=== PATIENT | female | born 1965 | race African-American/Black ===

== ENCOUNTER 2016-09-26 05:45 | Emergency (ER) | payer MEDICAID ==
[2016-09-26 08:56] LABS: ABSOLUTE EOSINOPHILS # (AUTO) 0.2 10^3/uL (0.0-0.6); ABSOLUTE LYMPHOCYTES (AUTO) 1.4 10^3/uL (0.5-4.7); ABSOLUTE MONOCYTES (AUTO) 0.5 10^3/uL (0.1-1.4); ABSOLUTE NEUT (AUTO) 3.7 10^3/uL (1.7-8.2); BASOPHILS % (AUTO) 0.8 % (0-2); EOSINOPHILS % (AUTO) 4.1 % (0-6); HEMOGLOBIN 11.5 g/dL (12.0-15.5); HGB HCT DIFFERENCE 0.5; LYMPHOCYTES % (AUTO) 24.2 % (13-45); MEAN CORPUSCULAR HEMOGLOBIN 27.4 pg (27.0-33.4); MEAN CORPUSCULAR HGB CONC 33.7 g/dL (32.0-36.0); MEAN CORPUSCULAR VOLUME 81 fl (80-97); MONOCYTES % (AUTO) 8.2 % (3-13); RED BLOOD COUNT 4.17 10^6/uL (3.72-5.28); RED CELL DISTRIBUTION WIDTH 14.4 % (11.5-14.0); SEGMENTED NEUTROPHILS % (AUTO) 62.7 % (42-78); WHITE BLOOD COUNT 5.9 10^3/uL (4.0-10.5)
--- NOTE | 2016-09-26 09:05 | ER Document Report ---
ED General - General Chief Complaint: Shortness Of Breath Stated Complaint: breathing difficulty TRAVEL OUTSIDE OF THE U.S. IN LAST 30 DAYS: No - HPI Patient complains to provider of: shortness of breath Notes: Patient's coming in today for evaluation shortness of breath. Patient states woke up this morning at 4:00 shortness of breath and body pain was able to give herself a nebulizer treatment however did call EMS and was transported to the hospital for further evaluation. Patient denies any recent travel denies fevers chills nausea vomiting states she does have a cough but there is no production of the cough. Patient does mention chest pain however states this when intermitted hard to differentiate between exact chest pain and her complaint of total body pain. Patient states that she always hurts. Patient is otherwise sitting comfortably in no obvious distress. Patient is requesting a prescription for amoxicillin. - Related Data Allergies/Adverse Reactions: codeine [Codeine] Allergy (Unknown, Verified 09/26/16 07:34) Past Medical History - Social History Smoking Status: Never Smoker Chew tobacco use (# tins/day): No Frequency of alcohol use: None Drug Abuse: None Family History: Arthritis, CAD, CVA, DM, Hyperlipidemia, Hypertension Patient has suicidal ideation: No Patient has homicidal ideation: No - Past Medical History Cardiac Medical History: Reports: Hx Hypertension Comment Only: Hx Heart Attack - ANGINA Pulmonary Medical History: Reports: Hx Asthma Renal/ Medical History: Denies: Hx Peritoneal Dialysis GI Medical History: Reports: Hx Gastroesophageal Reflux Disease Musculoskeltal Medical History: Reports Hx Arthritis Psychiatric Medical History: Reports: Hx Anxiety, Hx Depression Surgical Hx: Negative - Immunizations Immunizations up to date: No Hx Diphtheria, Pertussis, Tetanus Vaccination: Yes Hx Pneumococcal Vaccination: 06/11/00 Review of Systems - Review of Systems Constitutional: No symptoms reported EENT: No symptoms reported Cardiovascular: No symptoms reported Respiratory: Short of breath Gastrointestinal: No symptoms reported Genitourinary: No symptoms reported Female Genitourinary: No symptoms reported Musculoskeletal: No symptoms reported Skin: No symptoms reported Hematologic/Lymphatic: No symptoms reported Neurological/Psychological: No symptoms reported Physical Exam - Vital signs Vitals: Temp Pulse Resp BP Pulse Ox 98.1 F 94 18 140/73 H 97 09/26/16 05:58 09/26/16 05:58 09/26/16 05:58 09/26/16 05:58 09/26/16 05:58 Interpretation: Normal - General General appearance: Appears well, Alert - HEENT Head: Normocephalic, Atraumatic Eyes: Normal Pupils: PERRL - Respiratory Respiratory status: No respiratory distress Chest status: Nontender Breath sounds: Normal Chest palpation: Normal - Cardiovascular Rhythm: Regular Heart sounds: Normal auscultation Murmur: No - Abdominal Inspection: Normal Distension: No distension Bowel sounds: Normal Tenderness: Nontender. No: Tender, McBurney's point, Basurto's sign, Guarding, Rebound Organomegaly: No organomegaly - Back Back: Normal, Nontender - Extremities General upper extremity: Normal inspection, Nontender, Normal color, Normal ROM , Normal temperature General lower extremity: Normal inspection, Nontender, Normal color, Normal ROM , Normal temperature, Normal weight bearing. No: Elbert's sign - Neurological Neuro grossly intact: Yes Cognition: Normal Orientation: AAOx4 Yolie Coma Scale Eye Opening: Spontaneous Yolie Coma Scale Verbal: Oriented Yolie Coma Scale Motor: Obeys Commands Mcwilliams Coma Scale Total: 15 Speech: Normal Motor strength normal: LUE, RUE, LLE, RLE Sensory: Normal - Psychological Associated symptoms: Normal affect, Normal mood - Skin Skin Temperature: Warm Skin Moisture: Dry Skin Color: Normal Course - Re-evaluation Re-evalutation: 09/26/16 10:56 Patient does have slight elevation in her liver function test however reexamination the patient's abdomen still reveals no critical etiology or abdominal pathology. Patient was encouraged follow-up with her primary care physician for further evaluation of elevation in her liver function tests. Patient remained stable. Patient upon reevaluation still has clear lung sounds. Patient will be given a prescription for albuterol and inhaler for her the use as needed for shortness of breath. Patient will be discharged home - Vital Signs Vital signs: Temp Pulse Resp BP Pulse Ox 98.1 F 94 18 140/73 H 97 09/26/16 05:58 09/26/16 05:58 09/26/16 07:10 09/26/16 05:58 09/26/16 05:58 - Laboratory Result Diagrams: 09/26/16 08:00 09/26/16 08:00 Laboratory results interpreted by me: 09/26/16 09/26/16 08:00 08:00 Hgb 11.5 L Hct 34.0 L RDW 14.4 H AST 42 H ALT 66 H Alkaline Phosphatase 155 H Creatine Kinase 167 H Total Protein 8.6 H Discharge - Discharge Clinical Impression: Elevated liver function tests Dyspnea Qualifiers: Dyspnea type: unspecified Qualified Code(s): R06.00 - Dyspnea, unspecified Instructions: Dyspnea, Nonspecific ([facility]), Liver Function Abnormality ([facility]) Additional Instructions: Your lab work x-rays today shows no signs of any significant pathology. You have a slight elevation in your liver enzymes. At this time I see any reason for any antibiotics I would highly recommend she follow-up with your primary care physician for further evaluation and monitoring of your liver function tests. Will give you a prescription for albuterol that she may use with your machine at home also a prescription for an inhaler that she may use as needed for any further shortness of breath. Prescriptions: Albuterol Sulfate [Ventolin Hfa] 1 - 2 puff IH Q4 PRN #1 [email or web address] PRN Reason: Albuterol Sulfate [Albuterol Sulfate 2.5mg/3 mL] 2.5 mg IH Q4 #20 vial Referrals: DHAVAL KAISER MD [Primary Care Provider] - Follow up in 3-5 days
[2016-09-26 09:13] LABS: ALANINE AMINOTRANSFERASE 66 U/L (9-52); ALBUMIN 4.6 g/dL (3.5-5.0); ALKALINE PHOSPHATASE 155 U/L (38-126); ANION GAP 14 (5-19); ASPARTATE AMINO TRANSFERASE 42 U/L (14-36); BILIRUBIN,DIRECT 0.3 mg/dL (0.0-0.4); BILIRUBIN,TOTAL 0.6 mg/dL (0.2-1.3); BLOOD UREA NITROGEN 11 mg/dL (7-20); CALCIUM 10.2 mg/dL (8.4-10.2); CARBON DIOXIDE 30 mmol/L (22-30); CHLORIDE 98 mmol/L (98-107); CREATINE KINASE 167 U/L (30-135); CREATININE RESULT 0.81 mg/dL (0.52-1.25); GLUCOSE 98 mg/dL (75-110); POTASSIUM 3.8 mmol/L (3.6-5.0); SODIUM 141.8 mmol/L (137-145); TOTAL PROTEIN 8.6 g/dL (6.3-8.2)
[2016-09-26 09:24] LABS: CREATINE KINASE MB 0.34 ng/mL (<4.55)
[2016-09-26 09:25] LABS: TROPONIN I < 0.012 ng/mL
[2016-09-26 11:04] VITALS: BP 138/92
--- NOTE | 2016-09-26 13:25 | EKG REPORT ---
SEVERITY:- NORMAL ECG - SINUS RHYTHM : Confirmed by: Josseline Byrd MD 26-Sep-2016 13:24:25
== END 2016-09-26 10:30 | disposition home or self-care (01) ==
LOC: ER 05:45
DX: J45.909 Unspecified asthma, uncomplicated (principal); R79.89 Other specified abnormal findings of blood chemistry; R06.02 Shortness of breath; R05 Cough; R07.9 Chest pain, unspecified; I10 Essential (primary) hypertension; Z88.5 Allergy status to narcotic agent
CPT/HCPCS: 36415; 71020; 80053; 82550; 82553; 84484; 85025; 93005; 93010; 99285

== ENCOUNTER 2016-10-15 18:21 | Emergency (ER) | payer SELFPAY ==
[2016-10-15 18:47] VITALS: BP 125/85
--- NOTE | 2016-10-15 19:41 | ER Document Report ---
HPI - HPI Pain Level: 3 Context: 51 yo female c/o pain to right upper and lower teeth x 1 week as well as some nasal congestion. no fever, no gingival swelling. Associated Symptoms: None Exacerbated by: Denies Relieved by: Denies Similar symptoms previously: Yes Recently seen / treated by doctor: No - ROS Systems Reviewed and Negative: Yes All other systems reviewed and negative - REPRODUCTIVE Reproductive: DENIES: : - DERM Skin Color: Normal Past Medical History - General Information source: Patient - Social History Smoking Status: Never Smoker Frequency of alcohol use: None Drug Abuse: None Lives with: Family Family History: Arthritis, CAD, CVA, DM, Hyperlipidemia, Hypertension Patient has suicidal ideation: No Patient has homicidal ideation: No - Past Medical History Cardiac Medical History: Reports: Hx Hypertension Comment Only: Hx Heart Attack - ANGINA Pulmonary Medical History: Reports: Hx Asthma Renal/ Medical History: Denies: Hx Peritoneal Dialysis GI Medical History: Reports: Hx Gastroesophageal Reflux Disease Musculoskeltal Medical History: Reports Hx Arthritis Psychiatric Medical History: Reports: Hx Anxiety, Hx Depression - Immunizations Immunizations up to date: No Hx Diphtheria, Pertussis, Tetanus Vaccination: Yes Hx Pneumococcal Vaccination: 06/11/00 Vertical Provider Document - CONSTITUTIONAL Agree With Documented VS: Yes Exam Limitations: No Limitations General Appearance: WD/WN, No Apparent Distress - INFECTION CONTROL TRAVEL OUTSIDE OF THE [place] IN LAST 30 DAYS: No - HEENT HEENT: Atraumatic, PERRLA Mouth Diagram: 1 - pain 2 - pain - NECK Neck: Normal Inspection, Supple - RESPIRATORY Respiratory: Breath Sounds Normal, No Respiratory Distress O2 Sat by Pulse Oximetry: 98 - CARDIOVASCULAR Cardiovascular: Regular Rate, Regular Rhythm - MUSCULOSKELETAL/EXTREMETIES Musculoskeletal/Extremeties: CODI ROSALES - NEURO Level of Consciousness: Awake, Alert, Appropriate - DERM Integumentary: Warm, Dry Course - Vital Signs Vital signs: Temp Pulse Resp BP Pulse Ox 98.8 F 88 16 125/85 98 10/15/16 18:45 10/15/16 18:45 10/15/16 18:45 10/15/16 18:45 10/15/16 18:45 Discharge - Discharge Clinical Impression: Pain, dental, Nasal congestion Condition: Stable Disposition: HOME, SELF-CARE Instructions: Penicillin V K ([facility]), Toothache ([facility]) Additional Instructions: Take meds as prescribed recommend over the counter Claritin for nasal congestion Follow up with dental for further evaluation and treatment Prescriptions: Penicillin V Potassium [Penicillin Vk 500 mg Tablet] 500 mg PO BID #20 tablet
== END 2016-10-15 19:55 | disposition home or self-care (01) ==
LOC: ER 18:21
DX: K08.89 Other specified disorders of teeth and supporting structures (principal); R09.81 Nasal congestion; I10 Essential (primary) hypertension; J45.909 Unspecified asthma, uncomplicated
CPT/HCPCS: 99282

== ENCOUNTER 2016-11-07 20:17 | Emergency (ER) | payer SELFPAY ==
[2016-11-07 20:50] VITALS: BP 122/67
== END 2016-11-07 21:50 | disposition left against medical advice (07) ==
LOC: ER 20:17
DX: Z53.21 Procedure and treatment not carried out due to patient leaving prior to being seen by health care provider (principal)

== ENCOUNTER 2016-11-22 19:45 | Emergency (ER) | payer SELFPAY | END 2016-11-22 20:25 | disposition left against medical advice (07) | LOC: ER 19:45 | DX: Z53.9 Procedure and treatment not carried out, unspecified reason (principal); M79.1 Myalgia ==

== ENCOUNTER 2016-12-03 15:44 | Emergency (ER) | payer SELFPAY ==
[2016-12-03 16:17] VITALS: BP 126/74
[2016-12-03 16:32] LABS: APPEARANCE,URINE CLOUDY; BILIRUBIN,URINE NEGATIVE (NEGATIVE); GLUCOSE, URINE NEGATIVE (NEGATIVE); KETONES,URINE NEGATIVE (NEGATIVE); LEUKOCYTE ESTERASE,URINE MODERATE (NEGATIVE); NITRITE,URINE NEGATIVE (NEGATIVE); PROTEIN,URINE NEGATIVE (NEGATIVE); URINE SPECIFIC GRAVITY 1.025; UROBILINOGEN,URINE NEGATIVE mg/dL (<2.0)
[2016-12-03 16:36] LABS: WBC,URINE 0-1 /HPF
== END 2016-12-03 16:45 | disposition left against medical advice (07) ==
LOC: ER 15:44
DX: Z53.21 Procedure and treatment not carried out due to patient leaving prior to being seen by health care provider (principal)
CPT/HCPCS: 81001

== ENCOUNTER 2016-12-22 15:59 | Emergency (ER) | payer SELFPAY ==
[2016-12-22 16:16] VITALS: BP 126/71
[2016-12-22] MEDS ORDERED: IBUPROFEN 600 MG TABLET PO ONE (16:21)
[2016-12-22] MEDS ORDERED: PENICILLIN V POTASSIUM 500 MG TABLET PO ONE (16:21)
--- NOTE | 2016-12-22 16:26 | ER Document Report ---
ED Oral Problem - General Chief Complaint: Toothache Stated Complaint: TOOTH PAIN Time Seen by Provider: 12/22/16 16:18 Mode of Arrival: Ambulatory Information source: Patient Notes: 51-year-old female presents to ED for dental pain to the left wisdom tooth #16. The tooth has been hurting for couple of days. She denies making plans to visit the dentist yet she says they cost too much money. TRAVEL OUTSIDE OF THE [place] IN LAST 30 DAYS: No - HPI Patient complains to provider of: Toothache Onset: Other - Couple days Onset: Gradual Quality of pain: Achy, Throbbing Severity: Moderate Pain Level: 3 Associated symptoms: Toothache Worsened by: Cold Relieved by: Nothing Similar symptoms previously: Yes Recently seen / treated by doctor/dentist: No - Related Data Allergies/Adverse Reactions: codeine [Codeine] Allergy (Unknown, Verified 11/07/16 20:45) Past Medical History - General Information source: Patient - Social History Smoking Status: Never Smoker Cigarette use (# per day): No Chew tobacco use (# tins/day): No Smoking Education Provided: No Frequency of alcohol use: None Drug Abuse: None Lives with: Family Family History: Arthritis, CAD, CVA, DM, Hyperlipidemia, Hypertension Patient has suicidal ideation: No Patient has homicidal ideation: No - Past Medical History Cardiac Medical History: Reports: Hx Hypertension Comment Only: Hx Heart Attack - ANGINA Pulmonary Medical History: Reports: Hx Asthma EENT Medical History: Reports: None Neurological Medical History: Reports: None Endocrine Medical History: Reports: None Renal/ Medical History: Reports: None Malignancy Medical History: Reports: None GI Medical History: Reports: Hx Gastroesophageal Reflux Disease Musculoskeltal Medical History: Reports Hx Arthritis Psychiatric Medical History: Reports: Hx Anxiety, Hx Depression Traumatic Medical History: Reports: None Infectious Medical History: Reports: None Surgical Hx: Negative Past Surgical History: Reports: None - Immunizations Immunizations up to date: No Hx Diphtheria, Pertussis, Tetanus Vaccination: Yes Hx Pneumococcal Vaccination: 06/11/00 Review of Systems - Review of Systems Constitutional: No symptoms reported EENT: Mouth pain, Dental problem Cardiovascular: No symptoms reported Respiratory: No symptoms reported Gastrointestinal: No symptoms reported Genitourinary: No symptoms reported Female Genitourinary: No symptoms reported Musculoskeletal: No symptoms reported Skin: No symptoms reported Hematologic/Lymphatic: No symptoms reported Neurological/Psychological: No symptoms reported -: Yes All other systems reviewed and negative Physical Exam - Vital signs Vitals: Temp Pulse Resp BP Pulse Ox 98.4 F 72 18 126/71 H 99 12/22/16 16:14 12/22/16 16:14 12/22/16 16:14 12/22/16 16:14 12/22/16 16:14 Interpretation: Normal - General General appearance: Appears well, Alert - HEENT Head: Normocephalic, Atraumatic Eyes: Normal Pupils: PERRL Ears: Normal External canal: Normal Tympanic membrane: Normal Sinus: Normal Nasal: Normal Mouth/Lips: Caries Teeth diagram: 1 - Cavity and tooth #16 redness around the tooth. Multiple other dental cavities. - Respiratory Respiratory status: No respiratory distress Chest status: Nontender Breath sounds: Normal Chest palpation: Normal - Cardiovascular Rhythm: Regular Heart sounds: Normal auscultation Murmur: No - Abdominal Inspection: Normal Distension: No distension Bowel sounds: Normal Tenderness: Nontender Organomegaly: No organomegaly - Back Back: Normal, Nontender - Extremities General upper extremity: Normal inspection, Nontender, Normal color, Normal ROM , Normal temperature General lower extremity: Normal inspection, Nontender, Normal color, Normal ROM , Normal temperature, Normal weight bearing. No: Elbert's sign - Neurological Neuro grossly intact: Yes Cognition: Normal Orientation: AAOx4 Yolie Coma Scale Eye Opening: Spontaneous [place] Coma Scale Verbal: Oriented Yolie Coma Scale Motor: Obeys Commands [place] Coma Scale Total: 15 Speech: Normal Motor strength normal: LUE, RUE, LLE, RLE Sensory: Normal - Psychological Associated symptoms: Normal affect, Normal mood - Skin Skin Temperature: Warm Skin Moisture: Dry Skin Color: Normal Course - Re-evaluation Re-evalutation: 12/22/16 16:40 Patient insistent that she was going to take half of the pill now and half of the pill later informed patient know she needed to take the whole pale now. Patient did not put half the pill in her mouth and swallowed it with no difficulty then put the other pill half of the pill in her cheek and said she was ready to go. She was instructed she needed to take the other half of the pill now before she left. Patient became very angry and stated to you treat all your patients like that and watch them take the pills. Patient instructed that yes we supposed to make sure that the patient take the medications as prescribed. Patient again instructed with the rest of the prescription to please take the pill as it is prescribed 500 mg twice daily and not break the pill in half and save half later. Patient instructed that the pill will not work if she only takes half the dose. - Vital Signs Vital signs: Temp Pulse Resp BP Pulse Ox 98.4 F 72 18 126/71 H 99 12/22/16 16:14 12/22/16 16:14 12/22/16 16:14 12/22/16 16:14 12/22/16 16:14 Discharge - Discharge Clinical Impression: Pain due to dental caries Condition: Stable Disposition: HOME, SELF-CARE Instructions: Use of Gtal-Sdu-Vmnljti Ibuprofen ([facility]) Additional Instructions: TOOTHACHE: Your pain is due to dental decay. The tooth must be repaired in order for you to feel better. You will, therefore, be referred to a dentist. We do not have dentists on the staff at [facility]. Severe swelling or drainage around a tooth usually means a dental abscess. This also requires evaluation and treatment by the dentist, but antibiotics may be prescribed while awaiting dental treatment. You should be rechecked immediately if you develop major swelling of the face, increasing pain, a lump in the jaw or gums, headache, difficulty swallowing, or fever. PENICILLIN V K: You have been given a prescription for Penicillin VK. Your physician has determined that this is the best antibiotic for your condition. Pen VK can be taken with meals, however more of the antibiotic gets into the bloodstream if it's taken on an empty stomach. Penicillin usually has no side effects. However, allergy to penicillins is common. If you have had an allergic reaction to any drug of the penicillin family, you should never take any other penicillin. Notify your doctor at once if you develop hives, itching, swelling, faintness, or shortness of breath. FOLLOW-UP CARE: You have been referred for follow-up care to the dentists listed below. Call the dentists office for an appointment as you were instructed or within the next two days. If you experience worsening or a significant change in your symptoms, notify the physician immediately or return to the Emergency Department at any time for re-evaluation. [facility] [address] [place], [place] mornings, by appointment [facility] [address] [place] [address] [facility] [address] [facility] [address] [facility] [address] [facility] [address] [email or web address] [address] [place] [address] Sunday- 8:00am to 5:00 pm Will see patients from other [facility]. Charges based on income and family size and accepts Medicare, Medicaid, and Insurances Will pull molars [facility] [address] Hours of Operation 8:00 am - 4:30 pm weekdays The following dental offices accept Medicaid: [facility] [address]. S[address]chez Dr. Shukla Dr. [place] Dr. Beauchamp [place], and [facility] Dr. Zhang ([place]) Dr. Cosby ([place]) [facility] Drs. Bedoya and Dusty ([place]) Dr. Murphy ([place]) [facility] Dr. Calderon ([place]) Drs. Iniguez and ([place]) Medicaid Care Line Prescriptions: Penicillin V Potassium [Penicillin Vk 500 mg Tablet] 500 mg PO BID #20 tablet Forms: Elevated Blood Pressure
== END 2016-12-22 16:35 | disposition home or self-care (01) ==
LOC: ER 15:59
DX: K02.9 Dental caries, unspecified (principal); I10 Essential (primary) hypertension; Z88.6 Allergy status to analgesic agent
CPT/HCPCS: 99282

== ENCOUNTER 2017-01-05 14:15 | Emergency (ER) | payer SELFPAY ==
[2017-01-05 14:24] VITALS: BP 134/62
--- NOTE | 2017-01-05 15:35 | ER Document Report ---
ED Medical Screen (RME) - General Chief Complaint: Pain All Over Stated Complaint: PAIN ALL OVER Time Seen by Provider: 01/05/17 15:22 Mode of Arrival: Ambulatory Information source: Patient TRAVEL OUTSIDE OF THE [place] IN LAST 30 DAYS: No - HPI Onset: Yesterday Onset/Duration: Gradual Quality of pain: Dull, Other - SORENESS Severity: Mild Associated Symptoms: None Exacerbated by: Denies Relieved by: Denies Similar symptoms previously: Yes Recently seen / treated by doctor: No - Related Data Allergies/Adverse Reactions: codeine [Codeine] Allergy (Unknown, Verified 01/05/17 14:22) Past Medical History - General Information source: Patient - Social History Chew tobacco use (# tins/day): No Frequency of alcohol use: None Drug Abuse: None Lives with: Alone Family history: DM, Hypertension - Past Medical History Cardiac Medical History: Reports: Hx Hypertension Comment Only: Hx Heart Attack - ANGINA Pulmonary Medical History: Reports: Hx Asthma Renal/ Medical History: Denies: Hx Peritoneal Dialysis GI Medical History: Reports: Hx Gastroesophageal Reflux Disease Musculoskeltal Medical History: Reports Hx Arthritis Psychiatric Medical History: Reports: Hx Anxiety, Hx Depression Surgical Hx: Negative - Immunizations Immunizations up to date: No Hx Diphtheria, Pertussis, Tetanus Vaccination: Yes Review of Systems - Review of Systems Constitutional: No symptoms reported EENT: No symptoms reported Cardiovascular: No symptoms reported Respiratory: No symptoms reported Gastrointestinal: No symptoms reported Genitourinary: No symptoms reported Female Genitourinary: Post menopausal Musculoskeletal: See HPI Skin: No symptoms reported Physical Exam - Vital signs Vitals: Temp Pulse Resp BP Pulse Ox 98.7 F 92 16 134/62 H 99 01/05/17 14:22 01/05/17 14:22 01/05/17 14:22 01/05/17 14:22 01/05/17 14:22 Interpretation: Normal - General General appearance: Appears well, Alert In distress: None - HEENT Head: Normocephalic Eyes: Normal Conjunctiva: Normal Ears: Normal Nasal: Normal Mouth/Lips: Normal Mucous membranes: Normal Pharynx: Normal Neck: Normal - Respiratory Respiratory status: No respiratory distress Breath sounds: Normal - Cardiovascular Rhythm: Regular Heart sounds: Normal auscultation Murmur: No - Abdominal Inspection: Normal Distension: No distension - Extremities General upper extremity: Normal inspection General lower extremity: Normal inspection - Neurological Neuro grossly intact: Yes Cognition: Normal Orientation: AAOx4 - Psychological Associated symptoms: Normal affect, Normal mood - Skin Skin Temperature: Warm Skin Moisture: Dry Skin Color: Normal Skin Turgor: Elastic Course - Vital Signs Vital signs: Temp Pulse Resp BP Pulse Ox 98.7 F 92 16 134/62 H 99 01/05/17 14:22 01/05/17 14:22 01/05/17 14:22 01/05/17 14:22 01/05/17 14:22 Doctor's Discharge - Discharge Clinical Impression: Body aches Condition: Stable Disposition: HOME, SELF-CARE Additional Instructions: CONTINUE YOUR USUAL MEDICATIONS. YOU MAY TAKE IBUPROFEN IF NEEDED, BUT ONLY DIRECTED AND NEVER ON AN EMPTY STOMACH. VOID EXPOSURE TO EXTREME HEAT. FOLLOW UP WITH YOUR PRIMARY CARE PROVIDER NEEDED. Referrals: DHAVAL KAISER MD [Primary Care Provider] - Follow up as needed
== END 2017-01-05 15:35 | disposition home or self-care (01) ==
LOC: ER 14:15
DX: R52 Pain, unspecified (principal); I10 Essential (primary) hypertension; J45.909 Unspecified asthma, uncomplicated; Z88.5 Allergy status to narcotic agent
CPT/HCPCS: 99283

== ENCOUNTER 2017-01-13 14:51 | Emergency (ER) | payer SELFPAY ==
[2017-01-13 14:58] VITALS: BP 124/79
[2017-01-13] MEDS ORDERED: KETOROLAC TROMETHAMINE 60 MG/2 ML SDV IM ONE (15:14)
--- NOTE | 2017-01-13 15:20 | ER Document Report ---
HPI - HPI Patient complains to provider of: back pain Onset: Other Onset/Duration: Gradual Quality of pain: Achy Severity: Moderate Pain Level: 3 Context: Patient complains of mid to low back pain intermittently for the past few days. Pain is worse with bending over. Patient states she has had trouble with her back in the past, and this feels the same just not as bad. Denies loss of control of bowels or bladder. Also states she has been feeling hot for the last month or so. denies dysuria. Associated Symptoms: None Exacerbated by: Movement Relieved by: Remaining still Similar symptoms previously: Yes Recently seen / treated by doctor: No - ROS ROS below otherwise negative: Yes Systems Reviewed and Negative: Yes All other systems reviewed and negative - CONSTITUTIONAL Constitutional: DENIES: Fever - EENT EENT: DENIES: Congestion - NEURO Neurology: DENIES: Headache - CARDIOVASCULAR Cardiovascular: DENIES: Chest pain - RESPIRATORY Respiratory: DENIES: Trouble Breathing - GASTROINTESTINAL Gastrointestinal: DENIES: Abdominal Pain - URINARY Urinary: DENIES: Dysuria, Urgency, Frequency - REPRODUCTIVE Reproductive: DENIES: : - MUSCULOSKELETAL Musculoskeletal: DENIES: Extremity pain - DERM Skin Color: Normal Skin Problems: None Past Medical History - General Information source: Patient - Social History Smoking Status: Never Smoker Frequency of alcohol use: None Drug Abuse: None Lives with: Family Family History: Arthritis, CAD, CVA, DM, Hyperlipidemia, Hypertension Patient has suicidal ideation: No Patient has homicidal ideation: No - Past Medical History Cardiac Medical History: Reports: Hx Hypertension Comment Only: Hx Heart Attack - ANGINA Pulmonary Medical History: Reports: Hx Asthma GI Medical History: Reports: Hx Gastroesophageal Reflux Disease Musculoskeltal Medical History: Reports Hx Arthritis Psychiatric Medical History: Reports: Hx Anxiety, Hx Depression Surgical Hx: Negative - Immunizations Immunizations up to date: No Hx Diphtheria, Pertussis, Tetanus Vaccination: Yes Hx Pneumococcal Vaccination: 06/11/00 Vertical Provider Document - CONSTITUTIONAL Agree With Documented VS: Yes Exam Limitations: No Limitations General Appearance: WD/WN, No Apparent Distress Notes: Patient able to rotate and sit on side of the bed without difficulty for exam. Patient stands without difficulty. - INFECTION CONTROL TRAVEL OUTSIDE OF THE U.S. IN LAST 30 DAYS: No - HEENT HEENT: Atraumatic, Normal ENT Exam, Normocephalic - RESPIRATORY Respiratory: Breath Sounds Normal, No Respiratory Distress O2 Sat by Pulse Oximetry: 99 - CARDIOVASCULAR Cardiovascular: Regular Rate, Regular Rhythm - GI/ABDOMEN Gastrointestinal: Abdomen Soft, Abdomen Non-Tender - BACK Back: negative: CVA Tenderness-Right, CVA Tenderness-Left - MUSCULOSKELETAL/EXTREMETIES Musculoskeletal/Extremeties: MAEW Notes: Negative straight leg raises. Mild tenderness lumbar paraspinal muscles bilaterally. - NEURO Level of Consciousness: Awake, Alert, Appropriate - DERM Integumentary: Warm, Dry Course - Vital Signs Vital signs: Temp Pulse Resp BP Pulse Ox 98.6 F 95 16 124/79 99 01/13/17 14:55 01/13/17 14:55 01/13/17 14:55 01/13/17 14:55 01/13/17 14:55 Discharge - Discharge Clinical Impression: Back pain Qualifiers: Back pain location: low back pain Chronicity: acute Back pain laterality: bilateral Sciatica presence: without sciatica Qualified Code(s): M54.5 - Low back pain Condition: Good Disposition: HOME, SELF-CARE Instructions: Ice Packs ([facility]), Warm Packs ([facility]), Pain Medication Injection ([facility] ) Additional Instructions: Flexeril as prescribed Ibuprofen as needed for pain Heat or ice packs to back Follow-up with your doctor next week for recheck return as needed Prescriptions: Cyclobenzaprine HCl [Flexeril 5 mg Tablet] 5 mg PO TID #15 tablet
== END 2017-01-13 15:35 | disposition home or self-care (01) ==
LOC: ER 14:51
DX: M54.5 Low back pain (principal); M54.9 Dorsalgia, unspecified
CPT/HCPCS: 99283; 96372; J1885

== ENCOUNTER 2017-01-21 14:41 | Emergency (ER) | payer SELFPAY ==
[2017-01-21 15:01] VITALS: BP 118/74
--- NOTE | 2017-01-21 15:12 | ER Document Report ---
ED General - General Mode of Arrival: Ambulatory Information source: Patient TRAVEL OUTSIDE OF THE U.S. IN LAST 30 DAYS: No - HPI Associated symptoms: Other - see above - General Chief Complaint: Psych Problem Stated Complaint: BODY PAIN Time Seen by Provider: 01/21/17 15:01 Notes: Patient is a 51 year old female who is well known to the Emergency Department with complaints of generalized aches and pain consistent with her usual all over body pain. Per the nurse, while in the waiting room she began preaching about God rather loudly which is the only thing new for her. Patient states that she has been hearing voices for "years" but that they are probably just kids playing or cars passing by. Patient states she has been diaphoretic recently. Patient states she had a good Sunday, she read the bible and prayed to God at home today. Patient takes her daily Aspirin along with Motrin for her pain. She has not followed up with her PCP for her chronic pain. (KEATON ROSARIO) - Related Data Allergies/Adverse Reactions: codeine [Codeine] Allergy (Unknown, Verified 01/21/17 14:42) Past Medical History - General Information source: Patient - Social History Smoking Status: Never Smoker Chew tobacco use (# tins/day): No Smoking Education Provided: No Frequency of alcohol use: None Family History: Arthritis, CAD, CVA, DM, Hyperlipidemia, Hypertension Patient has suicidal ideation: No Patient has homicidal ideation: No - Past Medical History Cardiac Medical History: Reports: Hx Hypertension Comment Only: Hx Heart Attack - ANGINA Pulmonary Medical History: Reports: Hx Asthma Renal/ Medical History: Denies: Hx Peritoneal Dialysis GI Medical History: Reports: Hx Gastroesophageal Reflux Disease Musculoskeltal Medical History: Reports Hx Arthritis Psychiatric Medical History: Reports: Hx Anxiety, Hx Depression - Immunizations Immunizations up to date: No Hx Diphtheria, Pertussis, Tetanus Vaccination: Yes Hx Pneumococcal Vaccination: 06/11/00 Review of Systems - Review of Systems Constitutional: See HPI, Diaphoresis EENT: No symptoms reported Cardiovascular: No symptoms reported Respiratory: No symptoms reported Gastrointestinal: No symptoms reported Genitourinary: No symptoms reported Female Genitourinary: No symptoms reported Musculoskeletal: See HPI, Other - generalized aches and pains Skin: No symptoms reported Hematologic/Lymphatic: No symptoms reported Neurological/Psychological: No symptoms reported Physical Exam - Vital signs Vitals: Temp Pulse Resp BP Pulse Ox 98.2 F 97 18 118/74 98 01/21/17 14:53 01/21/17 14:53 01/21/17 14:53 01/21/17 14:53 01/21/17 14:53 - Notes Notes: GENERAL: Alert, interacts well. No acute distress. HEAD: Normocephalic, atraumatic. EYES: Pupils equal, round, and reactive to light. Extraocular movements intact. ENT: Oral mucosa moist, tongue midline. NECK: Full range of motion. Supple. Trachea midline. LUNGS: Clear to auscultation bilaterally, no wheezes, rales, or rhonchi. No respiratory distress. HEART: Regular rate and rhythm. No murmurs, gallops, or rubs. ABDOMEN: Soft, non-tender. Non-distended. Bowel sounds present in all 4 quadrants. EXTREMITIES: Moves all 4 extremities spontaneously. No edema, radial and dorsalis pedis pulses 2/4 bilaterally. No cyanosis. NEUROLOGICAL: Alert and oriented x3. Normal speech. PSYCH: Normal affect, normal mood. SKIN: Warm, dry, normal turgor. No rashes or lesions noted. (KEATON ROSARIO) Course - Re-evaluation Re-evalutation: 01/21/17 15:12 Patient did not give any evidence of active or verbal hallucinations at this time, when questioned about these she states that she is able to hear voices that other people do not hear, states that she thinks their kids playing outside or possibly cars driving by on the road, states it has been like this for years. They do not tell her to do anything, patient does not wish to harm herself at this time. No evidence of sabianism delusions, grandiosity or paranoia. Asked patient about God in an attempt to see if mentioning God would spur more loud preaching such as the type that had concerned the nurse in the waiting room and patient simply told me that she read her Bible this morning and prayed and that she had a good relationship with God. Again no evidence of remy. Discussing the patient's all over body aches they are consistent with her usual symptoms, she states they are nothing new, questions whether or not she might need steroids for her frequent shortness of breath, when patient was informed that steroids could cause diabetes, anxiety and insomnia patient agrees that as she is not wheezing and does not have any shortness of breath at this moment but they are not a good idea. Patient will be discharged to home and will follow up with [facility] within the next 2 weeks. (MANAV HONG) - Vital Signs Vital signs: Temp Pulse Resp BP Pulse Ox 98.2 F 97 18 118/74 98 01/21/17 14:53 01/21/17 14:53 01/21/17 14:53 01/21/17 14:53 01/21/17 14:53 Discharge - Discharge Clinical Impression: Body aches, Verbal auditory hallucination Condition: Stable Disposition: HOME, SELF-CARE Additional Instructions: Please use ibuprofen (Motrin or Advil) 600-800 mg every 8 hours as needed for pain or fever. You may also use acetaminophen (Tylenol) 1000 mg every 4-6 hours as needed for pain or fever. Please be aware that many medications contain acetaminophen, do not exceed a total of 1000 mg of acetaminophen every 6 hours. Please follow-up with [facility] as an outpatient. Please get plenty of sleep. Referrals: [facility] [Provider Group] - Follow up as needed Scribe Attestation: 01/21/17 19:00 I personally performed the services described in the documentation, reviewed and edited the documentation which was dictated to the scribe in my presence, and it accurately records my words and actions. (MANAV HONG) Scribe Documentation - Scribe Written by Rashawn:: rashawn Keller, 01/21/2017, [id number] acting as scribe for :: Jason
== END 2017-01-21 15:21 | disposition home or self-care (01) ==
LOC: ER 14:41
DX: R52 Pain, unspecified (principal); R44.0 Auditory hallucinations; R61 Generalized hyperhidrosis; I10 Essential (primary) hypertension; J45.909 Unspecified asthma, uncomplicated; Z79.82 Long term (current) use of aspirin; Z79.1 Long term (current) use of non-steroidal anti-inflammatories (NSAID); Z88.5 Allergy status to narcotic agent
CPT/HCPCS: 99283

== ENCOUNTER 2017-01-30 16:22 | Emergency (ER) | payer SELFPAY ==
[2017-01-30 16:38] VITALS: BP 135/88
[2017-01-30] MEDS ORDERED: IBUPROFEN SUSP 100 MG/5 ML ORAL SYRINGE PO ONE (17:19)
[2017-01-30] MEDS ORDERED: LIDOCAINE 2% VISCOUS SOLN 20 ML UDCUP PO ONE (17:19)
[2017-01-30] MEDS ORDERED: PENICILLIN V POTASSIUM 500 MG TABLET PO ONE (17:19)
--- NOTE | 2017-01-30 17:27 | ER Document Report ---
ED Oral Problem - General Chief Complaint: Toothache Stated Complaint: TOOTH PAIN Time Seen by Provider: 01/30/17 17:13 Mode of Arrival: Ambulatory Information source: Patient Notes: 51-year-old female presents to ED for complaint of tooth ache on tooth #14. She states it began yesterday. She states she has had pain in this area before. TRAVEL OUTSIDE OF THE U.S. IN LAST 30 DAYS: No - HPI Patient complains to provider of: Toothache Onset: Yesterday Onset: Gradual Quality of pain: Sharp Severity: Moderate Pain Level: 3 Associated symptoms: Toothache Worsened by: Cold Relieved by: Nothing Similar symptoms previously: Yes Recently seen / treated by doctor/dentist: No - Related Data Allergies/Adverse Reactions: codeine [Codeine] Allergy (Unknown, Verified 01/30/17 16:36) Past Medical History - General Information source: Patient - Social History Smoking Status: Never Smoker Cigarette use (# per day): No Chew tobacco use (# tins/day): No Smoking Education Provided: No Frequency of alcohol use: None Drug Abuse: None Lives with: Family Family History: Arthritis, CAD, CVA, DM, Hyperlipidemia, Hypertension Patient has suicidal ideation: No Patient has homicidal ideation: No - Past Medical History Cardiac Medical History: Reports: Hx Hypertension Comment Only: Hx Heart Attack - ANGINA Pulmonary Medical History: Reports: Hx Asthma EENT Medical History: Reports: None Neurological Medical History: Reports: None Endocrine Medical History: Reports: None Renal/ Medical History: Reports: None Malignancy Medical History: Reports: None GI Medical History: Reports: Hx Gastroesophageal Reflux Disease Musculoskeltal Medical History: Reports Hx Arthritis Skin Medical History: Reports None Psychiatric Medical History: Reports: Hx Anxiety, Hx Depression Traumatic Medical History: Reports: None Infectious Medical History: Reports: None Surgical Hx: Negative Past Surgical History: Reports: None - Immunizations Immunizations up to date: No Hx Diphtheria, Pertussis, Tetanus Vaccination: Yes Hx Pneumococcal Vaccination: 06/11/00 Review of Systems - Review of Systems Constitutional: No symptoms reported EENT: Dental problem Cardiovascular: No symptoms reported Respiratory: No symptoms reported Gastrointestinal: No symptoms reported Genitourinary: No symptoms reported Female Genitourinary: No symptoms reported Musculoskeletal: No symptoms reported Skin: No symptoms reported Hematologic/Lymphatic: No symptoms reported Neurological/Psychological: No symptoms reported Physical Exam - Vital signs Vitals: Temp Pulse Resp BP Pulse Ox 98.9 F 110 H 18 135/88 H 97 01/30/17 16:36 01/30/17 16:36 01/30/17 16:36 01/30/17 16:36 01/30/17 16:36 Interpretation: Normal - General General appearance: Appears well, Alert - HEENT Head: Normocephalic, Atraumatic Eyes: Normal Pupils: PERRL Sinus: Normal Nasal: Normal Mouth/Lips: Caries Mucous membranes: Normal Teeth diagram: 1 - Tooth #4 has a cavity there was minimal redness to the gums surrounding the tooth. Pharynx: Normal Neck: Normal - Respiratory Respiratory status: No respiratory distress Chest status: Nontender Breath sounds: Normal Chest palpation: Normal - Cardiovascular Rhythm: Regular Heart sounds: Normal auscultation Murmur: No - Abdominal Inspection: Normal Distension: No distension Bowel sounds: Normal Tenderness: Nontender Organomegaly: No organomegaly - Back Back: Normal, Nontender - Extremities General upper extremity: Normal inspection, Nontender, Normal color, Normal ROM , Normal temperature General lower extremity: Normal inspection, Nontender, Normal color, Normal ROM , Normal temperature, Normal weight bearing. No: Elbert's sign - Neurological Neuro grossly intact: Yes Cognition: Normal Orientation: AAOx4 [place] Coma Scale Eye Opening: Spontaneous Yolie Coma Scale Verbal: Oriented Yolie Coma Scale Motor: Obeys Commands Yolie Coma Scale Total: 15 Speech: Normal Motor strength normal: LUE, RUE, LLE, RLE Sensory: Normal - Psychological Associated symptoms: Normal affect, Normal mood - Skin Skin Temperature: Warm Skin Moisture: Dry Skin Color: Normal Course - Vital Signs Vital signs: Temp Pulse Resp BP Pulse Ox 98.9 F 110 H 18 135/88 H 97 01/30/17 16:36 01/30/17 16:36 01/30/17 16:36 01/30/17 16:36 01/30/17 16:36 Discharge - Discharge Clinical Impression: Pain due to dental caries Condition: Stable Disposition: HOME, SELF-CARE Additional Instructions: TOOTHACHE: Your pain is due to dental decay. The tooth must be repaired in order for you to feel better. You will, therefore, be referred to a dentist. We do not have dentists on the staff at [facility]. Severe swelling or drainage around a tooth usually means a dental abscess. This also requires evaluation and treatment by the dentist, but antibiotics may be prescribed while awaiting dental treatment. You should be rechecked immediately if you develop major swelling of the face, increasing pain, a lump in the jaw or gums, headache, difficulty swallowing, or fever. PENICILLIN V K: You have been given a prescription for Penicillin VK. Your physician has determined that this is the best antibiotic for your condition. Pen VK can be taken with meals, however more of the antibiotic gets into the bloodstream if it's taken on an empty stomach. Penicillin usually has no side effects. However, allergy to penicillins is common. If you have had an allergic reaction to any drug of the penicillin family, you should never take any other penicillin. Notify your doctor at once if you develop hives, itching, swelling, faintness, or shortness of breath. Ibuprofen Ibuprofen is an excellent, safe drug for pain control. In addition, it has potent antiinflammatory effects which are beneficial, especially in the treatment of injuries, arthritis, or tendonitis. It's best to take ibuprofen with food. Persons with ulcer disease or allergy to aspirin should notify their physician of this before taking ibuprofen. Take the medication exactly as prescribed. Don't take additional doses unless instructed to do so by your doctor. If you develop wheezing, shortness of breath, hives, faintness, stomach pain, vomiting, or dark black stools, return for re-evaluation at once. FOLLOW-UP CARE: You have been referred for follow-up care to the dentists listed below. Call the dentists office for an appointment as you were instructed or within the next two days. If you experience worsening or a significant change in your symptoms, notify the physician immediately or return to the Emergency Department at any time for re-evaluation. [facility] [address] [place], [place] Sunday mornings, by appointment [facility] [address] [place] [address] [facility] [address] [facility] [address] [facility] [email or web address] [address] [place] [address] Sunday- 8:00am to 5:00 pm [facility] other [facility]. Charges based on income and family size and accepts Medicare, Medicaid, and Insurances Will pull molars [facility] [address] Hours of Operation 8:00 am - 4:30 pm weekdays The following dental offices accept Medicaid: [facility] Dr. S[address]chez Dr. Shukla Dr. [place] Dr. Beauchamp [facility] [place], and [facility] Dr. Zhang ([place]) Dr. Cosby ([place]) [facility] Drs. Pardo ([place]) Dr. Murphy ([place]) [facility] Dr. Calderon ([place]) Drs. Iniguez and ([place]) Medicaid Care Line Prescriptions: Penicillin V Potassium [Penicillin Vk 500 mg Tablet] 500 mg PO BID #20 tablet Forms: Elevated Blood Pressure Referrals: RADHA LOFTON, [facility] [Primary Care Provider] - Follow up as needed
== END 2017-01-30 17:34 | disposition home or self-care (01) ==
LOC: ER 16:22
DX: K02.9 Dental caries, unspecified (principal); K08.89 Other specified disorders of teeth and supporting structures; Z88.5 Allergy status to narcotic agent; I10 Essential (primary) hypertension
CPT/HCPCS: 99282; J3490

== ENCOUNTER 2017-02-09 15:20 | Emergency (ER) | payer SELFPAY | END 2017-02-09 15:37 | disposition left against medical advice (07) | LOC: ER 15:20 | DX: Z53.21 Procedure and treatment not carried out due to patient leaving prior to being seen by health care provider (principal) ==

== ENCOUNTER 2017-02-18 09:35 | Emergency (ER) | payer SELFPAY ==
[2017-02-18] MEDS ORDERED: FUROSEMIDE 40 MG TABLET PO ONE (10:58)
--- NOTE | 2017-02-18 11:02 | ER Document Report ---
ED Extremity Problem, Lower - General Chief Complaint: Leg Swelling Stated Complaint: SWOLLEN FEET Time Seen by Provider: 02/18/17 10:21 Mode of Arrival: Ambulatory Information source: Patient TRAVEL OUTSIDE OF THE U.S. IN LAST 30 DAYS: No - HPI Patient complains to provider of: Swelling Location: Foot Occurred: Other - 3 days Onset/Duration: Gradual Quality of pain: Fullness Severity: Mild Recent injury: No Associated symptoms: denies: Chest pain Notes: Patient is a 51-year-old female who is well known to this emergency department, today she complains of 3 day history of bilateral lower extremity swelling with fullness and pressure, she denies any chest pain or shortness of breath, no change in her medications, she denies any injury or trauma - Related Data Allergies/Adverse Reactions: codeine [Codeine] Allergy (Unknown, Verified 02/18/17 09:40) Past Medical History - General Information source: Patient - Social History Smoking Status: Never Smoker Chew tobacco use (# tins/day): No Frequency of alcohol use: None Drug Abuse: None Family History: Arthritis, CAD, CVA, DM, Hyperlipidemia, Hypertension - Past Medical History Cardiac Medical History: Reports: Hx Hypertension Comment Only: Hx Heart Attack - ANGINA Pulmonary Medical History: Reports: Hx Asthma Renal/ Medical History: Denies: Hx Peritoneal Dialysis GI Medical History: Reports: Hx Gastroesophageal Reflux Disease Musculoskeltal Medical History: Reports Hx Arthritis Psychiatric Medical History: Reports: Hx Anxiety, Hx Depression Surgical Hx: Negative - Immunizations Immunizations up to date: No Hx Diphtheria, Pertussis, Tetanus Vaccination: Yes Hx Pneumococcal Vaccination: 06/11/00 Review of Systems - Review of Systems Constitutional: No symptoms reported EENT: No symptoms reported Cardiovascular: Edema Respiratory: No symptoms reported Gastrointestinal: No symptoms reported Genitourinary: No symptoms reported Female Genitourinary: No symptoms reported Musculoskeletal: No symptoms reported Skin: No symptoms reported Hematologic/Lymphatic: No symptoms reported Neurological/Psychological: No symptoms reported -: Yes All other systems reviewed and negative Physical Exam - Vital signs Vitals: Temp Pulse Resp BP Pulse Ox 98.5 F 124 H 20 163/78 H 99 02/18/17 09:39 02/18/17 09:39 02/18/17 09:39 02/18/17 09:39 02/18/17 09:39 Interpretation: Tachycardic - General General appearance: Appears well, Alert - HEENT Head: Normocephalic, Atraumatic Eyes: Normal Pupils: PERRL - Respiratory Respiratory status: No respiratory distress Chest status: Nontender Breath sounds: Normal Chest palpation: Normal - Cardiovascular Rhythm: Regular Heart sounds: Normal auscultation Murmur: No - Abdominal Inspection: Normal Distension: No distension Bowel sounds: Normal Tenderness: Nontender Organomegaly: No organomegaly - Back Back: Normal, Nontender - Extremities General upper extremity: Normal inspection, Nontender, Normal color, Normal ROM , Normal temperature General lower extremity: Edema, Normal color, Normal ROM, Normal temperature, Normal weight bearing. No: Elbert's sign - Neurological Neuro grossly intact: Yes Cognition: Normal Orientation: AAOx4 [place] Coma Scale Eye Opening: Spontaneous [place] Coma Scale Verbal: Oriented Yolie Coma Scale Motor: Obeys Commands Yolie Coma Scale Total: 15 Speech: Normal Motor strength normal: LUE, RUE, LLE, RLE Sensory: Normal - Psychological Associated symptoms: Normal affect, Normal mood - Skin Skin Temperature: Warm Skin Moisture: Dry Skin Color: Normal Course - Re-evaluation Re-evalutation: 02/18/17 13:19 Lab and imaging findings discussed with patient at bedside, she was given a dose of Lasix, otherwise advised to follow-up with her primary care provider or return if symptoms worsen, patient acknowledges understanding and agreement with this plan - Vital Signs Vital signs: Temp Pulse Resp BP Pulse Ox 98.0 F 99 18 123/80 100 02/18/17 12:53 02/18/17 12:53 02/18/17 12:53 02/18/17 12:53 02/18/17 12:53 - Laboratory Result Diagrams: 02/18/17 11:25 02/18/17 11:25 Laboratory results interpreted by me: 02/18/17 02/18/17 11:25 11:25 WBC 13.1 H Hgb 11.5 L Hct 33.0 L Seg Neutrophils % 80.8 H Lymphocytes % 10.5 L Absolute Neutrophils 10.6 H Chloride 95 L Calcium 10.5 H - Diagnostic Test Radiology reviewed: Image reviewed, Reports reviewed - EKG Interpretation by Me EKG shows normal: Sinus rhythm Rate: Normal Rhythm: NSR When compared to previous EKG there are: No significant change Discharge - Discharge Clinical Impression: Peripheral edema Condition: Stable Disposition: HOME, SELF-CARE Instructions: Edema, Peripheral ([facility]) Additional Instructions: Follow up with your primary care provider in one to 2 days. Return to the emergency room immediately if symptoms worsen or any additional concerns.
[2017-02-18 11:36] LABS: ABSOLUTE BASOPHILS # (AUTO) 0.1 10^3/uL (0.0-0.2); ABSOLUTE EOSINOPHILS # (AUTO) 0.2 10^3/uL (0.0-0.6); ABSOLUTE LYMPHOCYTES (AUTO) 1.4 10^3/uL (0.5-4.7); ABSOLUTE MONOCYTES (AUTO) 0.9 10^3/uL (0.1-1.4); ABSOLUTE NEUT (AUTO) 10.6 10^3/uL (1.7-8.2); BASOPHILS % (AUTO) 0.5 % (0-2); EOSINOPHILS % (AUTO) 1.7 % (0-6); HEMOGLOBIN 11.5 g/dL (12.0-15.5); HGB HCT DIFFERENCE 1.5; LYMPHOCYTES % (AUTO) 10.5 % (13-45); MEAN CORPUSCULAR HEMOGLOBIN 28.9 pg (27.0-33.4); MEAN CORPUSCULAR HGB CONC 34.8 g/dL (32.0-36.0); MEAN CORPUSCULAR VOLUME 83 fl (80-97); MONOCYTES % (AUTO) 6.5 % (3-13); RED BLOOD COUNT 3.97 10^6/uL (3.72-5.28); SEGMENTED NEUTROPHILS % (AUTO) 80.8 % (42-78); WHITE BLOOD COUNT 13.1 10^3/uL (4.0-10.5)
--- NOTE | 2017-02-18 11:49 | RADIOLOGY REPORT (SQ) ---
EXAM DESCRIPTION: CHEST PA/LAT COMPLETED DATE/TIME: 02/18/2017 11:21 am REASON FOR STUDY: sob COMPARISON: 09/26/2016. TECHNIQUE: Frontal and lateral radiographic views of the chest acquired. NUMBER OF VIEWS: Two view. LIMITATIONS: None. FINDINGS: LUNGS AND PLEURA: No opacities, masses or pneumothorax. No pleural effusion. MEDIASTINUM AND HILAR STRUCTURES: No masses or contour abnormalities. HEART AND VASCULAR STRUCTURES: Heart normal size. No evidence for failure. BONES: No acute findings. HARDWARE: None in the chest. OTHER: No other significant finding. IMPRESSION: NO SIGNIFICANT RADIOGRAPHIC FINDING IN THE CHEST. TECHNICAL DOCUMENTATION: JOB ID: [id number] [employer]- All Rights Reserved
[2017-02-18 11:59] LABS: ANION GAP 16 (5-19); BLOOD UREA NITROGEN 11 mg/dL (7-20); CALCIUM 10.5 mg/dL (8.4-10.2); CARBON DIOXIDE 28 mmol/L (22-30); CHLORIDE 95 mmol/L (98-107); CREATININE RESULT 0.81 mg/dL (0.52-1.25); GLUCOSE 109 mg/dL (75-110); POTASSIUM 3.7 mmol/L (3.6-5.0); SODIUM 139.2 mmol/L (137-145)
[2017-02-18 12:54] VITALS: BP 123/80
--- NOTE | 2017-02-18 16:01 | EKG REPORT ---
SEVERITY:- NORMAL ECG - SINUS RHYTHM : Confirmed by: Nicholas Torres MD 18-Feb-2017 16:00:43
== END 2017-02-18 13:05 | disposition home or self-care (01) ==
LOC: ER 09:35
DX: R60.9 Edema, unspecified (principal); I10 Essential (primary) hypertension; K21.9 Gastro-esophageal reflux disease without esophagitis; Z88.6 Allergy status to analgesic agent
CPT/HCPCS: 36415; 71020; 80048; 83880; 85025; 93005; 93010; 99284

== ENCOUNTER 2017-02-21 13:45 | Emergency (ER) | payer SELFPAY ==
[2017-02-21] MEDS ORDERED: ACETAMINOPHEN 325 MG TABLET PO ONE (14:27)
--- NOTE | 2017-02-21 14:32 | ER Document Report ---
ED Extremity Problem, Lower - General Chief Complaint: Ankle Swelling Stated Complaint: LEG SWELLING Time Seen by Provider: 02/21/17 14:20 Mode of Arrival: Medic Information source: Patient Notes: 51-year-old female presents via EMS with bilateral lower extremity swelling for proximally 1 week. She complains of leg pain as well as generalized body pain. She has not noted fever but noted fever when she got here of 99.5. She was seen approximately 1 week ago given a dose of Lasix. She has not had a chance to follow-up yet. She has not really followed much of a low-sodium diet actually states because her legs are swelling in her she is not much up on them. No chest pain or breathing difficulty. No new cough cold symptoms dysuria hematuria. She is on hydrochlorothiazide for hypertension but no other diuretics. No syncope, no hemoptysis, no palpitations. TRAVEL OUTSIDE OF THE [place] IN LAST 30 DAYS: No - Related Data Allergies/Adverse Reactions: codeine [Codeine] Allergy (Unknown, Verified 02/21/17 14:00) Past Medical History - Social History Smoking Status: Never Smoker Frequency of alcohol use: None Drug Abuse: None Family History: Arthritis, CAD, CVA, DM, Hyperlipidemia, Hypertension - Past Medical History Cardiac Medical History: Reports: Hx Hypertension Comment Only: Hx Heart Attack - ANGINA Pulmonary Medical History: Reports: Hx Asthma Renal/ Medical History: Denies: Hx Peritoneal Dialysis GI Medical History: Reports: Hx Gastroesophageal Reflux Disease Musculoskeltal Medical History: Reports Hx Arthritis Psychiatric Medical History: Reports: Hx Anxiety, Hx Depression Surgical Hx: Negative - Immunizations Immunizations up to date: No Hx Diphtheria, Pertussis, Tetanus Vaccination: Yes Hx Pneumococcal Vaccination: 06/11/00 Review of Systems - Review of Systems -: Yes All other systems reviewed and negative Physical Exam - Vital signs Vitals: Temp Pulse Resp BP Pulse Ox 99.5 F 109 H 18 129/75 H 100 02/21/17 13:54 02/21/17 13:54 02/21/17 13:54 02/21/17 13:54 02/21/17 13:54 - Notes Notes: Physical Exam: GENERAL: VS as per nursing doc. temperature 99.5, pulse 109 well-appearing, well -nourished and in no acute distress. HEAD: Atraumatic, normocephalic. EYES: Pupils equal round and reactive to light, extraocular movements intact, sclera anicteric, no conjunctival injection or discharge. ENT: Nares patent, oropharynx clear without exudates. Moist mucous membranes. NECK: Normal range of motion, supple without lymphadenopathy. No JVD. No Carotid Bruits. LUNGS: Breath sounds clear to auscultation bilaterally and equal. No wheezes rales or rhonchi. HEART: Normal S1S2. Regular rate and rhythm without murmurs. Equal peripheral pulses. Rate 89 ABDOMEN: Soft, non-tender. No pulsatile mass. EXTREMITIES: Normal range of motion. No calf tenderness. Negative Homans. Patient has 2-3+ edema of the lower extremities. Slightly warm bilaterally but really no areas of cellulitis noted. NEUROLOGICAL: Cranial nerves grossly intact. Normal speech. Normal sensory and motor exams. No gross cerebellar abnormalities. PSYCH: Normal mood, normal affect. SKIN: Warm, dry, no cyanosis, no splinter hemorrhages. Cap refill < 2 sec. Course - Re-evaluation Re-evalutation: 02/21/17 15:56 Reviewed labs. White blood cell count still remains slightly elevated. I see no evidence of infection at this point. Appears to have peripheral edema. She has no right upper quadrant tenderness but I did discuss her LFTs and follow-up needs. Patient understands need for primary care follow-up and routine care with her for final definitive care. We will place her on Lasix for a few days to see if we can help with some of the edema. She understands warning signs to watch for. - Vital Signs Vital signs: Temp Pulse Resp BP Pulse Ox 99.5 F 109 H 18 123/79 100 02/21/17 13:54 02/21/17 13:54 02/21/17 15:00 02/21/17 14:01 02/21/17 15:00 - Laboratory Result Diagrams: 02/21/17 14:36 02/21/17 14:36 Laboratory results interpreted by me: 02/21/17 02/21/17 02/21/17 14:36 14:36 14:36 WBC 13.5 H Hgb 10.5 L Hct 30.3 L Lymphocytes % 12.6 L Absolute Neutrophils 10.5 H Chloride 95 L Glucose 114 H Calcium 10.7 H AST 85 H ALT 149 H Alkaline Phosphatase 263 H Urine Blood LARGE H Ur Leukocyte Esterase TRACE H Discharge - Discharge Clinical Impression: Peripheral edema Condition: Good Disposition: HOME, SELF-CARE Additional Instructions: Return for emergency or concern. May use the diuretic as discussed but will need primary care follow-up. Prescriptions: Furosemide [Lasix 20 mg Tablet] 20 mg PO QAM #7 tablet Referrals: [facility] [Provider Group] - Follow up tomorrow (Contact your primary care provider tomorrow to arrange routine care.)
[2017-02-21 14:47] LABS: ABSOLUTE BASOPHILS # (AUTO) 0.1 10^3/uL (0.0-0.2); ABSOLUTE EOSINOPHILS # (AUTO) 0.2 10^3/uL (0.0-0.6); ABSOLUTE LYMPHOCYTES (AUTO) 1.7 10^3/uL (0.5-4.7); ABSOLUTE MONOCYTES (AUTO) 1.1 10^3/uL (0.1-1.4); ABSOLUTE NEUT (AUTO) 10.5 10^3/uL (1.7-8.2); BASOPHILS % (AUTO) 0.5 % (0-2); EOSINOPHILS % (AUTO) 1.1 % (0-6); HEMATOCRIT 30.3 % (36.0-47.0); HEMOGLOBIN 10.5 g/dL (12.0-15.5); HGB HCT DIFFERENCE 1.2; LYMPHOCYTES % (AUTO) 12.6 % (13-45); MEAN CORPUSCULAR HEMOGLOBIN 28.1 pg (27.0-33.4); MEAN CORPUSCULAR HGB CONC 34.7 g/dL (32.0-36.0); MEAN CORPUSCULAR VOLUME 81 fl (80-97); MONOCYTES % (AUTO) 7.9 % (3-13); RED BLOOD COUNT 3.73 10^6/uL (3.72-5.28); RED CELL DISTRIBUTION WIDTH 13.8 % (11.5-14.0); SEGMENTED NEUTROPHILS % (AUTO) 77.9 % (42-78); WHITE BLOOD COUNT 13.5 10^3/uL (4.0-10.5)
[2017-02-21 14:57] LABS: APPEARANCE,URINE SLIGHTLY-CLOUDY; BILIRUBIN,URINE NEGATIVE (NEGATIVE); GLUCOSE, URINE NEGATIVE (NEGATIVE); KETONES,URINE NEGATIVE (NEGATIVE); LEUKOCYTE ESTERASE,URINE TRACE (NEGATIVE); NITRITE,URINE NEGATIVE (NEGATIVE); PROTEIN,URINE NEGATIVE (NEGATIVE); URINE SPECIFIC GRAVITY 1.002; UROBILINOGEN,URINE NEGATIVE mg/dL (<2.0)
[2017-02-21 15:17] LABS: ALANINE AMINOTRANSFERASE 149 U/L (9-52); ALBUMIN 4.3 g/dL (3.5-5.0); ALKALINE PHOSPHATASE 263 U/L (38-126); ANION GAP 14 (5-19); ASPARTATE AMINO TRANSFERASE 85 U/L (14-36); BILIRUBIN,DIRECT 0.4 mg/dL (0.0-0.4); BILIRUBIN,TOTAL 0.6 mg/dL (0.2-1.3); BLOOD UREA NITROGEN 10 mg/dL (7-20); CALCIUM 10.7 mg/dL (8.4-10.2); CARBON DIOXIDE 30 mmol/L (22-30); CHLORIDE 95 mmol/L (98-107); CREATININE RESULT 0.78 mg/dL (0.52-1.25); GLUCOSE 114 mg/dL (75-110); SODIUM 138.7 mmol/L (137-145); TOTAL PROTEIN 8.2 g/dL (6.3-8.2)
[2017-02-21 15:18] LABS: POTASSIUM 3.6 mmol/L (3.6-5.0)
[2017-02-21] MEDS ORDERED: FUROSEMIDE 20 MG TABLET PO ONE (15:55)
[2017-02-21 16:25] VITALS: BP 120/73
== END 2017-02-21 16:28 | disposition home or self-care (01) ==
LOC: ER 13:45
DX: R60.0 Localized edema (principal); M79.89 Other specified soft tissue disorders; M79.1 Myalgia
CPT/HCPCS: 36415; 80053; 81001; 83880; 85025; 99284

== ENCOUNTER 2017-04-07 13:03 | Emergency (ER) | payer SELFPAY ==
--- NOTE | 2017-04-07 13:35 | ER Document Report ---
HPI - HPI Patient complains to provider of: shortness of breath, wants penicillin Onset: Yesterday Onset/Duration: Gradual Quality of pain: Achy - joints Pain Level: 3 Context: 51 yo female c/o shortness of breath which a common complaint for years. Also asking for penicillin prescription for aches and pains. No chest pain, fever, cough, abd pain, or n/v/d. Associated Symptoms: Body/muscle aches Exacerbated by: Denies Relieved by: Denies Similar symptoms previously: Yes Recently seen / treated by doctor: No - pcp [facility] - ROS ROS below otherwise negative: Yes Systems Reviewed and Negative: Yes All other systems reviewed and negative - REPRODUCTIVE Reproductive: DENIES: : - DERM Skin Color: Normal Past Medical History - General Information source: Patient - Social History Smoking Status: Former Smoker Frequency of alcohol use: None Drug Abuse: None Lives with: Family Family History: Arthritis, CAD, CVA, DM, Hyperlipidemia, Hypertension Patient has suicidal ideation: No Patient has homicidal ideation: No - Past Medical History Cardiac Medical History: Reports: Hx Hypertension Comment Only: Hx Heart Attack - ANGINA Pulmonary Medical History: Reports: Hx Asthma Renal/ Medical History: Denies: Hx Peritoneal Dialysis GI Medical History: Reports: Hx Gastroesophageal Reflux Disease Musculoskeltal Medical History: Reports Hx Arthritis Psychiatric Medical History: Reports: Hx Anxiety, Hx Depression - Immunizations Immunizations up to date: No Hx Diphtheria, Pertussis, Tetanus Vaccination: Yes Hx Pneumococcal Vaccination: 06/11/00 Vertical Provider Document - CONSTITUTIONAL Agree With Documented VS: Yes Exam Limitations: No Limitations - INFECTION CONTROL TRAVEL OUTSIDE OF THE [place] IN LAST 30 DAYS: No - HEENT HEENT: Normal ENT Exam - NECK Neck: Supple. negative: Lymphadenopathy-Left, Lymphadenopathy-Right - RESPIRATORY Respiratory: Breath Sounds Normal, No Respiratory Distress O2 Sat by Pulse Oximetry: 98 - CARDIOVASCULAR Cardiovascular: Regular Rate, Regular Rhythm - GI/ABDOMEN Gastrointestinal: Abdomen Soft, Abdomen Non-Tender - MUSCULOSKELETAL/EXTREMETIES Musculoskeletal/Extremeties: CONNIE, FROM Notes: pitting edema bilateral lower legs ( she states for a year now, takes diuretic) - NEURO Level of Consciousness: Awake, Alert - DERM Integumentary: No Rash Course - Re-evaluation Re-evalutation: 04/07/17 14:37 chest xray negative. Told pt no to PCN prescription that she wants on hand, not indicated for this visit. I did let her have a nebulizer kit which she also asked for. - Vital Signs Vital signs: Temp Pulse Resp BP Pulse Ox 98.8 F 106 H 20 128/68 H 98 04/07/17 13:07 04/07/17 13:07 04/07/17 13:07 04/07/17 13:07 04/07/17 13:07 Discharge - Discharge Clinical Impression: Shortness of breath, hx hypertension, bilateral peripheral edema Condition: Good Disposition: HOME, SELF-CARE Instructions: Dependent Edema ([facility]), Dyspnea, Nonspecific ([facility]) Additional Instructions: see your doctor at [facility] for follow up to er any worsening of symptoms chest xray was negative. Referrals: RADHA LOFTON NP [Primary Care Provider] - Follow up as needed
--- NOTE | 2017-04-07 13:42 | ER Document Report ---
HPI - HPI Patient complains to provider of: Blood pressure check and shortness of breath Onset: Other - few days Quality of pain: Achy - All over in joints Pain Level: 3 Context: 51-year-old obese female complaining of 3 things. 1: I want my blood pressure checked, 2: I have shortness of breath when I bend over to bathe my feet or put my shoes on for several days, 3: I want penicillin from a aches and pains. She is well-known to the emergency department and chief complaint is usually shortness of breath. I have not seen her since 2014 she has developed bilateral peripheral edema since then. PCP is [facility]. She uses Qvar daily which has helped her asthma history and a nebulizer once a day. No fever chills or sweats. No chest pain. No leg pain. No evidence of failure on chest x-ray February 18, 2017., 02-21-2017 bun/ creatinine normal Takes Lasix now. Associated Symptoms: None Exacerbated by: Other - Bending over for 2 days to bathe her feet or put her shoes on Similar symptoms previously: Yes Recently seen / treated by doctor: No - ROS ROS below otherwise negative: Yes Systems Reviewed and Negative: Yes All other systems reviewed and negative - REPRODUCTIVE Reproductive: DENIES: : - DERM Skin Color: Normal Past Medical History - General Information source: Patient - Social History Smoking Status: Never Smoker Frequency of alcohol use: None Drug Abuse: None Lives with: Family Family History: Arthritis, CAD, CVA, DM, Hyperlipidemia, Hypertension Patient has suicidal ideation: No Patient has homicidal ideation: No - Past Medical History Cardiac Medical History: Reports: Hx Hypertension Comment Only: Hx Heart Attack - ANGINA Pulmonary Medical History: Reports: Hx Asthma Renal/ Medical History: Denies: Hx Peritoneal Dialysis GI Medical History: Reports: Hx Gastroesophageal Reflux Disease Musculoskeltal Medical History: Reports Hx Arthritis Psychiatric Medical History: Reports: Hx Anxiety, Hx Depression - Immunizations Immunizations up to date: No Hx Diphtheria, Pertussis, Tetanus Vaccination: Yes Hx Pneumococcal Vaccination: 06/11/00 Vertical Provider Document - CONSTITUTIONAL Exam Limitations: No Limitations General Appearance: No Apparent Distress - INFECTION CONTROL TRAVEL OUTSIDE OF THE [place] IN LAST 30 DAYS: No - HEENT HEENT: Normal ENT Exam - NECK Neck: Supple. negative: Lymphadenopathy-Left, Lymphadenopathy-Right - RESPIRATORY Respiratory: No Respiratory Distress, Rales - few crackles in left base O2 Sat by Pulse Oximetry: 98 - CARDIOVASCULAR Cardiovascular: Regular Rate, Regular Rhythm - GI/ABDOMEN Gastrointestinal: Abdomen Soft, Abdomen Non-Tender - MUSCULOSKELETAL/EXTREMETIES Musculoskeletal/Extremeties: MAEW, Edema - peripheral bilateral pitting edema - NEURO Level of Consciousness: Awake, Alert Course - Re-evaluation Re-evalutation: 04/07/17 xray negative. She wants penicillin for aches and pains, then asked to have it on case, then asked for nebulizer kit since it costs $4. I explained no penicillin is indicated. - Vital Signs Vital signs: Temp Pulse Resp BP Pulse Ox 98.8 F 106 H 20 128/68 H 98 04/07/17 13:07 04/07/17 13:07 04/07/17 13:07 04/07/17 13:07 04/07/17 13:35 Discharge - Discharge Clinical Impression: Shortness of breath, hx hypertension, bilateral peripheral edema Condition: Good Disposition: HOME, SELF-CARE Instructions: Dependent Edema ([facility]), Dyspnea, Nonspecific ([facility]) Additional Instructions: see your doctor at [facility] for follow up to er any worsening of symptoms chest xray was negative. Referrals: RADHA LOFTON NP [Primary Care Provider] - Follow up as needed
--- NOTE | 2017-04-07 14:06 | RADIOLOGY REPORT (SQ) ---
EXAM DESCRIPTION: CHEST PA/LAT COMPLETED DATE/TIME: 04/07/2017 1:56 pm REASON FOR STUDY: shortness of breath COMPARISON: 02/18/2017 EXAM PARAMETERS: NUMBER OF VIEWS: two views TECHNIQUE: Digital Frontal and Lateral radiographic views of the chest acquired. RADIATION DOSE: NA LIMITATIONS: none FINDINGS: LUNGS AND PLEURA: No opacities, masses or pneumothorax. No pleural effusion. MEDIASTINUM AND HILAR STRUCTURES: No masses or contour abnormalities. HEART AND VASCULAR STRUCTURES: Heart normal size. No evidence for failure. BONES: No acute findings. HARDWARE: None in the chest. OTHER: No other significant finding. IMPRESSION: NO SIGNIFICANT RADIOGRAPHIC FINDING IN THE CHEST. TECHNICAL DOCUMENTATION: JOB ID: [id number] [employer]- All Rights Reserved
[2017-04-07 15:04] VITALS: BP 127/75
== END 2017-04-07 15:04 | disposition home or self-care (01) ==
LOC: ER 13:03
DX: R06.02 Shortness of breath (principal); I10 Essential (primary) hypertension; R60.0 Localized edema
CPT/HCPCS: 71020; 99285

== ENCOUNTER 2017-06-28 16:30 | Emergency (ER) | payer SELFPAY ==
[2017-06-28 17:28] VITALS: BP 148/80
== END 2017-06-28 18:09 | disposition left against medical advice (07) ==
LOC: ER 16:30
DX: Z53.21 Procedure and treatment not carried out due to patient leaving prior to being seen by health care provider (principal); M79.1 Myalgia

== ENCOUNTER 2017-07-25 18:57 | Emergency (ER) | payer SELFPAY ==
--- NOTE | 2017-07-25 20:10 | ER Document Report ---
ED Medical Screen (RME) - General Chief Complaint: Abdominal Pain Stated Complaint: BODY PAIN Time Seen by Provider: 07/25/17 20:07 Notes: Patient states that for 4 or 5 hours she has had back pain abdominal pain but no vomiting or diarrhea. TRAVEL OUTSIDE OF THE [place] IN LAST 30 DAYS: No - Related Data Allergies/Adverse Reactions: codeine [Codeine] Allergy (Unknown, Verified 07/25/17 18:58) Past Medical History - Social History Family history: DM, Hypertension - Past Medical History Cardiac Medical History: Reports: Hx Hypertension Comment Only: Hx Heart Attack - ANGINA Pulmonary Medical History: Reports: Hx Asthma Renal/ Medical History: Denies: Hx Peritoneal Dialysis GI Medical History: Reports: Hx Gastroesophageal Reflux Disease Musculoskeltal Medical History: Reports Hx Arthritis Psychiatric Medical History: Reports: Hx Anxiety, Hx Depression - Immunizations Immunizations up to date: No Hx Diphtheria, Pertussis, Tetanus Vaccination: Yes Physical Exam - Vital signs Vitals: Temp Pulse Resp BP Pulse Ox 98.8 F 95 18 144/80 H 99 07/25/17 19:02 07/25/17 19:02 07/25/17 19:02 07/25/17 19:02 07/25/17 19:02 Course - Vital Signs Vital signs: Temp Pulse Resp BP Pulse Ox 98.8 F 95 18 144/80 H 99 07/25/17 19:02 07/25/17 19:02 07/25/17 19:02 07/25/17 19:02 07/25/17 19:02
[2017-07-25 20:44] LABS: ABSOLUTE BASOPHILS # (AUTO) 0.1 10^3/uL (0.0-0.2); ABSOLUTE EOSINOPHILS # (AUTO) 0.5 10^3/uL (0.0-0.6); ABSOLUTE LYMPHOCYTES (AUTO) 1.8 10^3/uL (0.5-4.7); ABSOLUTE MONOCYTES (AUTO) 0.6 10^3/uL (0.1-1.4); ABSOLUTE NEUT (AUTO) 3.4 10^3/uL (1.7-8.2); BASOPHILS % (AUTO) 1.3 % (0-2); EOSINOPHILS % (AUTO) 7.7 % (0-6); HEMATOCRIT 34.4 % (36.0-47.0); HEMOGLOBIN 11.2 g/dL (12.0-15.5); LYMPHOCYTES % (AUTO) 28.4 % (13-45); MEAN CORPUSCULAR HEMOGLOBIN 25.5 pg (27.0-33.4); MEAN CORPUSCULAR HGB CONC 32.7 g/dL (32.0-36.0); MEAN CORPUSCULAR VOLUME 78 fl (80-97); MONOCYTES % (AUTO) 9.2 % (3-13); PLATELET COUNT 332 10^3/uL (150-450); RED BLOOD COUNT 4.41 10^6/uL (3.72-5.28); RED CELL DISTRIBUTION WIDTH 16.3 % (11.5-14.0); SEGMENTED NEUTROPHILS % (AUTO) 53.4 % (42-78); TOTAL CELLS COUNTED % (AUTO) 100 %; WHITE BLOOD COUNT 6.4 10^3/uL (4.0-10.5)
[2017-07-25] MEDS ORDERED: HALOPERIDOL 5 MG TABLET PO ONE (20:46)
[2017-07-25 20:55] LABS: APPEARANCE,URINE SLIGHTLY-CLOUDY; BILIRUBIN,URINE NEGATIVE (NEGATIVE); COLOR,URINE STRAW; GLUCOSE, URINE NEGATIVE (NEGATIVE); KETONES,URINE NEGATIVE (NEGATIVE); LEUKOCYTE ESTERASE,URINE SMALL (NEGATIVE); NITRITE,URINE NEGATIVE (NEGATIVE); PROTEIN,URINE NEGATIVE (NEGATIVE); URINE SPECIFIC GRAVITY 1.004; UROBILINOGEN,URINE NEGATIVE mg/dL (<2.0)
[2017-07-25 21:01] LABS: ALANINE AMINOTRANSFERASE 48 U/L (9-52); ALBUMIN 4.5 g/dL (3.5-5.0); ALKALINE PHOSPHATASE 117 U/L (38-126); ANION GAP 11 (5-19); ASPARTATE AMINO TRANSFERASE 30 U/L (14-36); BILIRUBIN,DIRECT 0.3 mg/dL (0.0-0.4); BILIRUBIN,TOTAL 0.3 mg/dL (0.2-1.3); BLOOD UREA NITROGEN 13 mg/dL (7-20); CALCIUM 10.5 mg/dL (8.4-10.2); CARBON DIOXIDE 28 mmol/L (22-30); CHLORIDE 101 mmol/L (98-107); GLUCOSE 102 mg/dL (75-110); LIPASE 113.8 U/L (23-300); POTASSIUM 3.6 mmol/L (3.6-5.0); SODIUM 140.4 mmol/L (137-145); TOTAL PROTEIN 8.4 g/dL (6.3-8.2)
--- NOTE | 2017-07-25 21:17 | ER Document Report ---
ED General - General Chief Complaint: Abdominal Pain Stated Complaint: BODY PAIN Time Seen by Provider: 07/25/17 20:07 Notes: Patient is a 52-year-old female with a past medical history of morbid obesity, recurrent diffuse body pain, well-known to this emergency department for presenting with the complaint of whole body pain who presents today complaining of diffuse body pain. Does describe it as a whole body aching, cramping pain. She reports the pain seemed to be worse in her mid back but also notes that she has been having pain in almost every area of her body. Nothing improves or worsens her symptoms. She does admit to a long-standing history of similar symptoms in the past. She has not seen a primary doctor regarding today's concerns. She denies any fever, vomiting, diarrhea, confusion, focal weakness or numbness. TRAVEL OUTSIDE OF THE [place] IN LAST 30 DAYS: No - Related Data Allergies/Adverse Reactions: codeine [Codeine] Allergy (Unknown, Verified 07/25/17 18:58) Past Medical History - General Information source: Patient - Social History Smoking Status: Never Smoker Frequency of alcohol use: None Drug Abuse: None Lives with: Alone Family History: Arthritis, CAD, CVA, DM, Hyperlipidemia, Hypertension Patient has suicidal ideation: No Patient has homicidal ideation: No - Past Medical History Cardiac Medical History: Reports: Hx Hypertension Comment Only: Hx Heart Attack - ANGINA Pulmonary Medical History: Reports: Hx Asthma Renal/ Medical History: Denies: Hx Peritoneal Dialysis GI Medical History: Reports: Hx Gastroesophageal Reflux Disease Musculoskeltal Medical History: Reports Hx Arthritis Psychiatric Medical History: Reports: Hx Anxiety, Hx Depression - Immunizations Immunizations up to date: No Hx Diphtheria, Pertussis, Tetanus Vaccination: Yes Hx Pneumococcal Vaccination: 06/11/00 Review of Systems - Review of Systems Notes: Constitutional: Negative for fever. HENT: Negative for sore throat. Eyes: Negative for visual changes. Cardiovascular: Negative for chest pain. Respiratory: Negative for shortness of breath. Gastrointestinal: Positive for abdominal pain Genitourinary: Negative for dysuria. Musculoskeletal: Positive for mid back pain and diffuse joint pain Skin: Negative for rash. Neurological: Negative for headaches, weakness or numbness. 10 point ROS negative except as marked above and in HPI. Physical Exam - Vital signs Vitals: Temp Pulse Resp BP Pulse Ox 98.8 F 95 18 144/80 H 99 02/14/18 19:02 07/25/17 19:02 07/25/17 19:02 07/25/17 19:02 07/25/17 19:02 Interpretation: Normal Notes: PHYSICAL EXAMINATION: GENERAL: Well-appearing, well-nourished and in no acute distress. HEAD: Atraumatic, normocephalic. EYES: Pupils equal round and reactive to light, extraocular movements intact, sclera anicteric, conjunctiva are normal. ENT: nares patent, oropharynx clear without exudates. Moist mucous membranes. NECK: Normal range of motion, supple without lymphadenopathy LUNGS: Breath sounds clear to auscultation bilaterally and equal. No wheezes rales or rhonchi. HEART: Regular rate and rhythm without murmurs ABDOMEN: Soft, nontender, normoactive bowel sounds. No guarding, no rebound. No masses appreciated. EXTREMITIES: Normal range of motion, no pitting or edema. No cyanosis. Back: No midline spinal tenderness, step-offs or deformities NEUROLOGICAL: 5 out of 5 strength both distally and proximally bilateral lower extremities. 2+ patellar reflexes bilaterally. No clonus. Sensation grossly intact in the bilateral lower extremities. Patient is able to ambulate without difficulty. PSYCH: Normal mood, normal affect. SKIN: Warm, Dry, normal turgor, no rashes or lesions noted. Course - Re-evaluation Re-evalutation: 07/25/17 21:17 Patient presents with multiple vague complaints that did not appear to be concerning for any acute life-threatening pathology. Vitals are within normal limits at triage and at time of discharge. Physical examination is unremarkable. Patient has tolerated oral intake without difficulty. Patient was not noted to be in distress at any point during their ER visit. At this time, based on the reassuring evaluation, I do not suspect an acute ID, pulmonary embolus, aortic dissection, acute intra-abdominal pathology, stroke, or sepsis.Will discharge with return precautions and follow-up recommendations. Verbal discharge instructions given a the bedside and opportunity for questions given. Medication warnings reviewed. Patient is in agreement with this plan and has verbalized understanding of return precautions and the need for primary care follow-up in the next 24-72 hours. - Vital Signs Vital signs: Temp Pulse Resp BP Pulse Ox 98.2 F 85 18 135/84 H 100 07/25/17 21:30 07/25/17 21:30 07/25/17 21:30 07/25/17 21:30 07/25/17 21:30 - Laboratory Result Diagrams: 07/25/17 20:15 07/25/17 20:15 Laboratory results interpreted by me: 07/25/17 07/25/17 07/25/17 20:15 20:15 20:15 Hgb 11.2 L Hct 34.4 L MCV 78 L MCH 25.5 L RDW 16.3 H Eosinophils % 7.7 H Calcium 10.5 H Total Protein 8.4 H Ur Leukocyte Esterase SMALL H Discharge - Discharge Clinical Impression: Body aches, Generalized abdominal pain Thoracic back pain Qualifiers: Chronicity: acute Back pain laterality: bilateral Qualified Code(s): M54.6 - Pain in thoracic spine Condition: Good Disposition: HOME, SELF-CARE Additional Instructions: Please return to the emergency room immediately if you experience any concerning symptoms including high fevers, severe headache, chest pain, difficulty breathing, abdominal pain, slurred speech, numbness or weakness in your arms or legs, or any other symptom that concerns you.
[2017-07-25 21:33] VITALS: BP 135/84
== END 2017-07-25 21:31 | disposition home or self-care (01) ==
LOC: ER 18:57
DX: M79.1 Myalgia (principal); R10.84 Generalized abdominal pain; M54.6 Pain in thoracic spine; R19.7 Diarrhea, unspecified; Z88.6 Allergy status to analgesic agent
CPT/HCPCS: 36415; 80053; 81001; 83690; 85025; 99284

== ENCOUNTER 2017-08-17 10:25 | Emergency (ER) | payer SELFPAY ==
[2017-08-17] MEDS ORDERED: ACETAMINOPHEN 325 MG TABLET PO ONE (11:31)
--- NOTE | 2017-08-17 11:32 | ER Document Report ---
HPI - HPI Patient complains to provider of: Sore throat Onset/Duration: Gradual Pain Level: 3 Context: Patient presents complaining of sore throat and body aches for the past 2 days. Patient denies any fever. Associated Symptoms: Sore throat. denies: Fever Exacerbated by: Denies Relieved by: Denies Similar symptoms previously: Yes Recently seen / treated by doctor: No - ROS ROS below otherwise negative: Yes Systems Reviewed and Negative: Yes All other systems reviewed and negative - CONSTITUTIONAL Constitutional: DENIES: Fever - EENT EENT: REPORTS: Sore Throat - RESPIRATORY Respiratory: DENIES: Coughing - GASTROINTESTINAL Gastrointestinal: DENIES: Nausea, Patient vomiting - REPRODUCTIVE Reproductive: DENIES: : - DERM Skin Color: Normal Skin Problems: None Past Medical History - General Information source: Patient - Social History Smoking Status: Never Smoker Chew tobacco use (# tins/day): No Frequency of alcohol use: None Drug Abuse: None Lives with: Family Family History: Arthritis, CAD, CVA, DM, Hyperlipidemia, Hypertension Patient has suicidal ideation: No Patient has homicidal ideation: No - Past Medical History Cardiac Medical History: Reports: Hx Hypertension Comment Only: Hx Heart Attack - ANGINA Pulmonary Medical History: Reports: Hx Asthma Renal/ Medical History: Denies: Hx Peritoneal Dialysis GI Medical History: Reports: Hx Gastroesophageal Reflux Disease Musculoskeltal Medical History: Reports Hx Arthritis Psychiatric Medical History: Reports: Hx Anxiety, Hx Depression Surgical Hx: Negative - Immunizations Immunizations up to date: No Hx Diphtheria, Pertussis, Tetanus Vaccination: Yes Hx Pneumococcal Vaccination: 06/11/00 Vertical Provider Document - CONSTITUTIONAL Agree With Documented VS: Yes Exam Limitations: No Limitations General Appearance: WD/WN, No Apparent Distress - INFECTION CONTROL TRAVEL OUTSIDE OF THE [place] IN LAST 30 DAYS: No - HEENT HEENT: Atraumatic, Normocephalic, Pharyngeal Tenderness. negative: Pharyngeal Exudate, Pharyngeal Erythema - NECK Neck: Normal Inspection, Supple. negative: Lymphadenopathy-Left, Lymphadenopathy-Right - RESPIRATORY Respiratory: Breath Sounds Normal, No Respiratory Distress, Chest Non-Tender O2 Sat by Pulse Oximetry: 99 - CARDIOVASCULAR Cardiovascular: Regular Rate, Regular Rhythm, No Murmur - BACK Back: Normal Inspection - MUSCULOSKELETAL/EXTREMETIES Musculoskeletal/Extremeties: MAEW - NEURO Level of Consciousness: Awake, Alert, Appropriate Motor/Sensory: No Motor Deficit - DERM Integumentary: Warm, Dry, No Rash Course - Vital Signs Vital signs: Temp Pulse Resp BP Pulse Ox 99.1 F 95 16 133/74 H 99 08/17/17 10:38 08/17/17 10:38 08/17/17 10:38 08/17/17 10:38 08/17/17 10:38 - Laboratory Laboratory results interpreted by me: 08/17/17 12:16 Labs- Entire Visit 08/17/17 11:30 Group A Strep Rapid NEGATIVE Discharge - Discharge Clinical Impression: Sore throat, Body aches Condition: Stable Disposition: HOME, SELF-CARE Instructions: Acetaminophen, Sore Throat ([facility]) Additional Instructions: Return immediately for any new or worsening symptoms Followup with your primary care provider, call tomorrow to make a followup appointment Throat culture is pending, we will call if you need any different treatment Referrals: RADHA LOFTON NP [Primary Care Provider] - Follow up as needed [facility] [Provider Group] - Follow up as needed
[2017-08-17 13:48] VITALS: BP 131/74
== END 2017-08-17 12:35 | disposition home or self-care (01) ==
LOC: ER 10:25
DX: J02.9 Acute pharyngitis, unspecified (principal); M79.1 Myalgia; I10 Essential (primary) hypertension; K21.9 Gastro-esophageal reflux disease without esophagitis
CPT/HCPCS: 87070; 87880; 99283

== ENCOUNTER 2017-08-23 19:19 | Emergency (ER) | payer SELFPAY ==
[2017-08-23 19:38] VITALS: BP 139/76
[2017-08-23] MEDS ORDERED: LIDOCAINE 2% VISCOUS SOLN 20 ML UDCUP PO ONE (19:42)
--- NOTE | 2017-08-23 19:43 | ER Document Report ---
HPI - HPI Pain Level: 3 Notes: Patient is a 52-year-old female who presents to the ED complaining of left upper dental pain to #15/162-3 days. Patient states that she is still able to eat and drink without any problems. She has not noticed any obvious abscess or purulent discharge. Patient does not have a rash that was otherwise noted in the pivot note. Patient states that she is urinating normally and having normal bowel movements. Patient states that the dental pain is causing her to have a mild sore throat as well. No other concerns or complaints at this time. Denies any headache, fever, head injury, neck pain, URI, sore throat, chest pain, palpitations, syncope, cough, shortness of breath, wheeze, dyspnea, abdominal pain, nausea/vomiting/diarrhea, urinary retention, dysuria, hematuria , or rash. - ROS Systems Reviewed and Negative: Yes All other systems reviewed and negative - REPRODUCTIVE Reproductive: DENIES: : Past Medical History - Social History Smoking Status: Unknown if Ever Smoked Family History: Arthritis, CAD, CVA, DM, Hyperlipidemia, Hypertension Patient has suicidal ideation: No Patient has homicidal ideation: No - Past Medical History Cardiac Medical History: Reports: Hx Hypertension Comment Only: Hx Heart Attack - ANGINA Pulmonary Medical History: Reports: Hx Asthma Renal/ Medical History: Denies: Hx Peritoneal Dialysis GI Medical History: Reports: Hx Gastroesophageal Reflux Disease Musculoskeltal Medical History: Reports Hx Arthritis Psychiatric Medical History: Reports: Hx Anxiety, Hx Depression - Immunizations Immunizations up to date: No Hx Diphtheria, Pertussis, Tetanus Vaccination: Yes Hx Pneumococcal Vaccination: 06/11/00 Vertical Provider Document - CONSTITUTIONAL Agree With Documented VS: Yes Notes: PHYSICAL EXAMINATION: GENERAL: Well-appearing, well-nourished and in no acute distress. HEAD: Atraumatic, normocephalic. EYES: Pupils equal round and reactive to light, extraocular movements intact, sclera anicteric, conjunctiva are normal. ENT: EAC clear b/l. TM's intact b/l without erythema, fluid, or perforation. Nares patent and without discharge. oropharynx clear without exudates. No tonsilar hypertrophy or erythema. Moist mucous membranes. No sinus tenderness. Uvula midline. No palatine shift. No tongue protrusion. No respiratory compromise. Mouth: Poor dentition. + moderate decay and mild gingivitis. No obvious abscess or discharge noted. No facial swelling. + tenderness to tooth #15/16. NECK: Normal range of motion, supple without lymphadenopathy. No rigidity/ meningismus. LUNGS: Breath sounds clear to auscultation bilaterally and equal. No wheezes rales or rhonchi. HEART: Regular rate and rhythm without murmurs, rubs, gallops. NEUROLOGICAL: Cranial nerves grossly intact. Normal speech, normal gait. Normal sensory, motor exams PSYCH: Normal mood, normal affect. SKIN: Warm, Dry, normal turgor, no rashes or lesions noted. - INFECTION CONTROL TRAVEL OUTSIDE OF THE [place] IN LAST 30 DAYS: No - RESPIRATORY O2 Sat by Pulse Oximetry: 100 Course - Re-evaluation Re-evalutation: 08/23/17 19:41 Patient is an afebrile, well-hydrated, 52-year-old female who presents to the ED with dental pain to #15/16 without obvious abscess or purulence. Vitals are acceptable. PE is otherwise unremarkable. No labs or imaging warranted at this time based on H&P. Low suspicion for any meningitis, sepsis, peritonsillar /pharyngeal abscess, respiratory compromise, Renny's, temporal arteritis, or other emergent systemic condition at this time. Patient is aware this condition can change from initial presentation and she needs to monitor symptoms closely. I will send her home with a prescription for penicillin and lidocaine. Conservative measures otherwise for symptoms. Call to schedule an appointment with a dentist for further evaluation and management. Recheck with your PCM this week as well. Return to the ED with any worsening/concerning symptoms otherwise as reviewed in discharge. Patient is in agreement. - Vital Signs Vital signs: Temp Pulse Resp BP Pulse Ox 99.4 F 110 H 18 139/76 H 100 08/23/17 19:36 08/23/17 19:36 08/23/17 19:36 08/23/17 19:36 08/23/17 19:36 Discharge - Discharge Clinical Impression: Toothache Condition: Stable Disposition: HOME, SELF-CARE Instructions: Penicillin V K (OM), Toothache ([facility]) Additional Instructions: [place] and floss twice daily Maintain fluid intake Take antibiotics as directed Mouthwash, salt water gargles, peroxide rinse as needed Tylenol/ibuprofen as needed Recheck with PCM this week Call today/tomorrow and schedule an appointment with your dentist for further evaluation Return to the ED with any worsening symptoms and/or development of fever, headache, facial swelling, swelling of lips/tongue/throat, trouble swallowing, drooling, hoarseness, neck pain/stiffness, chest pain, palpitations, syncope, shortness of breath, trouble breathing, abdominal pain, n/v/d, numbness/tingling , or other worsening symptoms that are concerning to you. Prescriptions: Penicillin V Potassium [Penicillin Vk 250 mg Tablet] 500 mg PO BID #40 tablet Referrals: DHAVAL KAISER MD [Primary Care Provider] - Follow up in 3-5 days [facility] [Provider Group] - Follow up as needed [facility] [Provider Group] - Follow up as needed
== END 2017-08-23 20:05 | disposition home or self-care (01) ==
LOC: ER 19:19
DX: K02.9 Dental caries, unspecified (principal); K05.10 Chronic gingivitis, plaque induced; K08.89 Other specified disorders of teeth and supporting structures; J02.9 Acute pharyngitis, unspecified; I10 Essential (primary) hypertension; J45.909 Unspecified asthma, uncomplicated
CPT/HCPCS: 99282; J3490

== ENCOUNTER 2017-09-23 15:24 | Emergency (ER) | payer SELFPAY ==
--- NOTE | 2017-09-23 15:47 | ER Document Report ---
ED Medical Screen (RME) - General Chief Complaint: Dizziness Stated Complaint: BLOOD PRESSURE ISSUES Time Seen by Provider: 09/23/17 15:36 Notes: This 52-year-old female patient comes emergency room complaining of feeling dizzy, lightheaded, some shortness of breath. She has lower extremity edema which has been getting worse despite taking extra doses of her hydrochlorothiazide. She states 7 8 months ago she had been given Lasix for the swelling but has not been on any since then. She is followed at the [facility] in [place]. I have greeted and performed a rapid initial assessment of this patient. A comprehensive ED assessment and evaluation of the patient, analysis of test results and completion of the medical decision making process will be conducted by additional ED providers. TRAVEL OUTSIDE OF THE [place] IN LAST 30 DAYS: No - Related Data Allergies/Adverse Reactions: codeine [Codeine] Allergy (Unknown, Verified 08/23/17 19:21) Past Medical History - Social History Chew tobacco use (# tins/day): No Frequency of alcohol use: None Drug Abuse: None Family history: DM, Hypertension - Past Medical History Cardiac Medical History: Reports: Hx Hypertension Comment Only: Hx Heart Attack - ANGINA Pulmonary Medical History: Reports: Hx Asthma Renal/ Medical History: Denies: Hx Peritoneal Dialysis GI Medical History: Reports: Hx Gastroesophageal Reflux Disease Musculoskeltal Medical History: Reports Hx Arthritis Psychiatric Medical History: Reports: Hx Anxiety, Hx Depression - Immunizations Immunizations up to date: No Hx Diphtheria, Pertussis, Tetanus Vaccination: Yes Physical Exam - Vital signs Vitals: Temp Pulse Resp BP Pulse Ox 98.4 F 104 H 16 129/81 H 98 09/23/17 15:28 09/23/17 15:28 09/23/17 15:28 09/23/17 15:28 09/23/17 15:28 Course - Vital Signs Vital signs: Temp Pulse Resp BP Pulse Ox 98.4 F 104 H 16 129/81 H 98 09/23/17 15:28 09/23/17 15:28 09/23/17 15:28 09/23/17 15:28 09/23/17 15:28
[2017-09-23 16:49] LABS: ABSOLUTE BASOPHILS # (AUTO) 0.1 10^3/uL (0.0-0.2); ABSOLUTE EOSINOPHILS # (AUTO) 0.3 10^3/uL (0.0-0.6); ABSOLUTE LYMPHOCYTES (AUTO) 1.7 10^3/uL (0.5-4.7); ABSOLUTE MONOCYTES (AUTO) 0.8 10^3/uL (0.1-1.4); ABSOLUTE NEUT (AUTO) 3.5 10^3/uL (1.7-8.2); BASOPHILS % (AUTO) 1.1 % (0-2); EOSINOPHILS % (AUTO) 4.8 % (0-6); HEMATOCRIT 34.4 % (36.0-47.0); HEMOGLOBIN 11.1 g/dL (12.0-15.5); LYMPHOCYTES % (AUTO) 27.3 % (13-45); MEAN CORPUSCULAR HEMOGLOBIN 25.7 pg (27.0-33.4); MEAN CORPUSCULAR HGB CONC 32.3 g/dL (32.0-36.0); MEAN CORPUSCULAR VOLUME 79 fl (80-97); MONOCYTES % (AUTO) 11.7 % (3-13); PLATELET COUNT 232 10^3/uL (150-450); RED BLOOD COUNT 4.34 10^6/uL (3.72-5.28); RED CELL DISTRIBUTION WIDTH 16.1 % (11.5-14.0); SEGMENTED NEUTROPHILS % (AUTO) 55.1 % (42-78); TOTAL CELLS COUNTED % (AUTO) 100 %; WHITE BLOOD COUNT 6.4 10^3/uL (4.0-10.5)
--- NOTE | 2017-09-23 16:59 | RADIOLOGY REPORT (SQ) ---
EXAM DESCRIPTION: CHEST 2 VIEWS COMPLETED DATE/TIME: 09/23/2017 4:39 pm REASON FOR STUDY: SOB COMPARISON: 04/07/2017 EXAM PARAMETERS: NUMBER OF VIEWS: two views TECHNIQUE: Digital Frontal and Lateral radiographic views of the chest acquired. RADIATION DOSE: NA LIMITATIONS: none FINDINGS: LUNGS AND PLEURA: No opacities, masses or pneumothorax. No pleural effusion. MEDIASTINUM AND HILAR STRUCTURES: No masses or contour abnormalities. HEART AND VASCULAR STRUCTURES: Heart normal size. No evidence for failure. BONES: No acute findings. HARDWARE: None in the chest. OTHER: No other significant finding. IMPRESSION: NO ACUTE RADIOGRAPHIC FINDING IN THE CHEST. TECHNICAL DOCUMENTATION: JOB ID: [id number] [employer]- All Rights Reserved Reading location - IP/workstation name: [email or web address]
[2017-09-23 17:04] LABS: ALANINE AMINOTRANSFERASE 42 U/L (9-52); ALBUMIN 4.6 g/dL (3.5-5.0); ALKALINE PHOSPHATASE 119 U/L (38-126); ANION GAP 15 (5-19); ASPARTATE AMINO TRANSFERASE 28 U/L (14-36); BILIRUBIN,DIRECT 0.1 mg/dL (0.0-0.4); BILIRUBIN,TOTAL 0.3 mg/dL (0.2-1.3); BLOOD UREA NITROGEN 13 mg/dL (7-20); CALCIUM 10.5 mg/dL (8.4-10.2); CARBON DIOXIDE 28 mmol/L (22-30); CHLORIDE 100 mmol/L (98-107); CREATINE KINASE 124 U/L (30-135); GLUCOSE 82 mg/dL (75-110); POTASSIUM 3.5 mmol/L (3.6-5.0); SODIUM 143.4 mmol/L (137-145); TOTAL PROTEIN 8.6 g/dL (6.3-8.2)
[2017-09-23 17:16] LABS: NT PRO BNP 22 pg/mL (5-900); TROPONIN I < 0.012 ng/mL
--- NOTE | 2017-09-23 17:30 | ER Document Report ---
ED General - General Chief Complaint: Dizziness Stated Complaint: BLOOD PRESSURE ISSUES Time Seen by Provider: 09/23/17 15:36 TRAVEL OUTSIDE OF THE [place] IN LAST 30 DAYS: No - HPI Notes: 52-year-old female with a history of hypertension and anxiety who presents with dyspnea. Patient states a couple of times over the last 3 days she has had episodes where she has felt anxious and felt somewhat short of breath. These are discrete episodes, lasting to 3 minutes and then go away. Typically these happen while she has been going to use the bathroom. Last episode was yesterday. She was concerned that her blood pressure may have been elevated and took some extra blood pressure medicine. She denies any associated chest pain. Denies any orthopnea, fever, chills, sweats or cough. She has had some increased lower extremity edema which has been chronic for a bit worse over the last couple of days. She has been on her feet more than usual. No other modifying factors, no other associated symptoms, no other provocative or palliative factors. No personal or family history of venous thromboembolic disease. - Related Data Allergies/Adverse Reactions: codeine [Codeine] Allergy (Unknown, Verified 08/23/17 19:21) Past Medical History - Social History Smoking Status: Never Smoker Chew tobacco use (# tins/day): No Frequency of alcohol use: None Drug Abuse: None Family History: Arthritis, CAD, CVA, DM, Hyperlipidemia, Hypertension Patient has suicidal ideation: No Patient has homicidal ideation: No - Past Medical History Cardiac Medical History: Reports: Hx Hypertension Comment Only: Hx Heart Attack - ANGINA Pulmonary Medical History: Reports: Hx Asthma Renal/ Medical History: Denies: Hx Peritoneal Dialysis GI Medical History: Reports: Hx Gastroesophageal Reflux Disease Musculoskeltal Medical History: Reports Hx Arthritis Psychiatric Medical History: Reports: Hx Anxiety, Hx Depression - Immunizations Immunizations up to date: No Hx Diphtheria, Pertussis, Tetanus Vaccination: Yes Hx Pneumococcal Vaccination: 06/11/00 Review of Systems - Review of Systems Notes: Review of systems as in the history of present illness, otherwise negative. Physical Exam - Vital signs Vitals: Temp Pulse Resp BP Pulse Ox 98.4 F 104 H 16 129/81 H 98 09/23/17 15:28 09/23/17 15:28 09/23/17 15:28 09/23/17 15:28 09/23/17 15:28 - Notes Notes: General: Well developed . Morbidly obese, no respiratory distress. HEENT: Normocephalic, atraumatic. Pupils equal round reactive to light. No JVD. Chest: No trauma. Respiratory: Good air exchange, normal excursion. Mildly diminished secondary to body habitus. Cardiac: Regular rhythm. No murmurs or gallops. Abdomen: Soft, benign. Nondistended. Nontender. Back: No asymmetry or gross abnormality. Motor: Grossly normal power and tone. Neurologic: Alert, nonfocal. Cranial nerves II-12 are intact. Sensation intact. Vascular: Well perfused. Normal peripheral pulses. Skin: No petechiae or purpura. Extremities: 2+ pedal edema, chronic skin changes consistent with chronic edema Course - Re-evaluation Re-evalutation: 09/23/17 17:27 52-year-old female presents with the aforementioned symptoms. Of note, she was seen by the physician in triage ordered an extensive battery of testing. Consideration was initially given to mild heart failure exacerbation, underlying pneumonia, less likely felt to be an anginal equivalent or venous thrombolic disease given the very transient episodic nature and absence of chest pain. Possibly related to anxiety over this would be diagnosis of exclusion. Labs are reviewed, CBC unremarkable except for mild chronic anemia. Chemistries are unremarkable with normal renal function, troponin normal cardiac BNP is normal. Patient's chest x-ray shows no acute abnormality. 12 Lead ECG Analysis A 12 lead ECG is obtained and shows a sinus rhythm, normal QRS, normal QTC. There are nonspecific ST-T changes, no evidence of acute ischemic changes. Patient is done well throughout her ED course. She is resting comfortably with no significant dyspnea and a normal pulmonary examination. We did discuss her chronic lower extremity edema which appears to be getting somewhat worse. We talked about keeping her legs elevated, compression stockings, and at her request I will start her on a small dose of Lasix, she is asked to see her primary care doctor in follow-up over the next day or 2, return if worsening. - Vital Signs Vital signs: Temp Pulse Resp BP Pulse Ox 98.5 F 96 16 127/80 H 99 09/23/17 17:45 09/23/17 17:45 09/23/17 17:45 09/23/17 17:45 09/23/17 17:45 - Laboratory Result Diagrams: 09/23/17 16:29 09/23/17 16:29 Laboratory results interpreted by me: 09/23/17 09/23/17 16:29 16:29 Hgb 11.1 L Hct 34.4 L MCV 79 L MCH 25.7 L RDW 16.1 H Potassium 3.5 L Calcium 10.5 H Total Protein 8.6 H Discharge - Discharge Clinical Impression: Dyspnea Qualifiers: Dyspnea type: shortness of breath Qualified Code(s): R06.02 - Shortness of breath Condition: Good Disposition: HOME, SELF-CARE Prescriptions: Furosemide [Lasix 20 mg Tablet] 20 mg PO QAM #30 tablet Referrals: [facility] [Provider Group] - Follow up in 3-5 days [facility] [Provider Group] - Follow up in 3-5 days
[2017-09-23 18:57] VITALS: BP 127/80
--- NOTE | 2017-09-23 19:58 | EKG REPORT ---
SEVERITY:- BORDERLINE ECG - SINUS RHYTHM PROBABLE LEFT ATRIAL ABNORMALITY : Confirmed by: Nicholas Torres MD 23-Sep-2017 19:58:30
== END 2017-09-23 17:45 | disposition home or self-care (01) ==
LOC: ER 15:24
DX: R06.02 Shortness of breath (principal); R42 Dizziness and giddiness; I10 Essential (primary) hypertension; F41.9 Anxiety disorder, unspecified; R60.0 Localized edema; J45.909 Unspecified asthma, uncomplicated
CPT/HCPCS: 36415; 71046; 80053; 82550; 83880; 84484; 85025; 93005; 93010; 99285

== ENCOUNTER 2017-10-12 15:43 | Emergency (ER) | payer SELFPAY ==
[2017-10-12 15:57] VITALS: BP 130/73
[2017-10-12] MEDS ORDERED: FUROSEMIDE 20 MG TABLET PO ONE (16:08)
--- NOTE | 2017-10-12 16:14 | ER Document Report ---
ED Extremity Problem, Lower - General Chief Complaint: Feet Swelling Stated Complaint: FEET SWELLING Time Seen by Provider: 10/12/17 15:59 Mode of Arrival: Ambulatory Information source: Patient, [facility] Records Notes: This 52-year-old female patient comes emergency room complaining of swelling to her feet and ankles. She states she ran out of Lasix several days ago. She was seen here on 09/23/2017, for the same problem and at that time reported she had not had any Lasix in about 8 months. She was taking hydrochlorothiazide it was not helping. She was evaluated with lab work showing normal renal function, and received a prescription for Lasix 20 mg every morning #30. Eventually she admitted she never filled the prescription. She was told that that medicine is on the $4 list at [facility], and she responded that she does not go around to different pharmacies [place] prices. She was reassured that it is about that parsons at any pharmacy. I then explained that someone spent more money on gasoline just driving her here from [place] and back home than what it would have cost to buy the medicine. She is a frequent visitor to the emergency room for nonurgent problems TRAVEL OUTSIDE OF THE [place] IN LAST 30 DAYS: No - Related Data Allergies/Adverse Reactions: codeine [Codeine] Allergy (Unknown, Verified 10/12/17 16:04) Past Medical History - General Information source: Patient, [facility] Records - Social History Smoking Status: Unknown if Ever Smoked Cigarette use (# per day): No Chew tobacco use (# tins/day): No Smoking Education Provided: No Frequency of alcohol use: None Drug Abuse: None Occupation: Unemployed Lives with: Family Family History: Arthritis, CAD, CVA, DM, Hyperlipidemia, Hypertension Patient has suicidal ideation: No Patient has homicidal ideation: No - Past Medical History Cardiac Medical History: Reports: Hx Hypertension Comment Only: Hx Heart Attack - ANGINA Pulmonary Medical History: Reports: Hx Asthma GI Medical History: Reports: Hx Gastroesophageal Reflux Disease Musculoskeltal Medical History: Reports Hx Arthritis Psychiatric Medical History: Reports: Hx Anxiety, Hx Depression Surgical Hx: Negative - Immunizations Immunizations up to date: No Hx Diphtheria, Pertussis, Tetanus Vaccination: Yes Hx Pneumococcal Vaccination: 06/11/00 Review of Systems - Review of Systems Constitutional: No symptoms reported EENT: No symptoms reported Cardiovascular: Edema Respiratory: No symptoms reported Gastrointestinal: No symptoms reported Genitourinary: No symptoms reported Female Genitourinary: Post menopausal Musculoskeletal: Back pain, Joint pain, Ankle swelling Skin: No symptoms reported Hematologic/Lymphatic: No symptoms reported Neurological/Psychological: No symptoms reported Physical Exam - Vital signs Vitals: Temp Pulse Resp BP Pulse Ox 99.4 F 106 H 18 130/73 H 97 10/12/17 15:55 10/12/17 15:55 10/12/17 15:55 10/12/17 15:55 10/12/17 15:55 Interpretation: Normal - General General appearance: Appears well, Alert In distress: None - HEENT Head: Normocephalic, Atraumatic Eyes: Normal Pupils: PERRL - Respiratory Respiratory status: No respiratory distress Breath sounds: Normal - Cardiovascular Rhythm: Regular Heart sounds: Normal auscultation Murmur: No - Abdominal Inspection: Obese, Morbidly Obese - Back Back: Normal - Extremities General upper extremity: Normal inspection General lower extremity: Edema - Neurological Neuro grossly intact: Yes - Psychological Associated symptoms: Normal affect, Normal mood - Skin Skin Temperature: Warm Skin Moisture: Dry Skin Color: Normal Course - Vital Signs Vital signs: Temp Pulse Resp BP Pulse Ox 99.4 F 106 H 18 130/73 H 97 10/12/17 15:55 10/12/17 15:55 10/12/17 15:55 10/12/17 15:55 10/12/17 15:55 Discharge - Discharge Clinical Impression: Peripheral edema, Noncompliance with medication regimen Condition: Stable Disposition: HOME, SELF-CARE Additional Instructions: Edema, Peripheral You have swelling in your legs. This is called peripheral edema. It can be caused by "leaky capillaries," inflammation, disease of the leg veins, or excess salt and water in your body. Edema may be a sign of heart, kidney, or liver disease. A medical evaluation can determine if there is a serious underlying cause for your edema. Avoid prolonged standing. If you must sit for a long time, occasionally get up and walk around or elevate your legs. Support stockings can be helpful in limiting swelling. Often diuretic or water pills are used to remove excess salt and water from your body. Call the doctor or return if you develop increased swelling, pain, or redness, shortness of breath, chest pain, or any other significant change. Start the Lasix prescription tomorrow. You were given today's dose in the emergency room. You should elevate your feet much more often than you have been doing recently. Follow-up with [facility] in 2 weeks as planned. RETURN TO THE EMERGENCY ROOM IF ANY NEW OR WORSENING SYMPTOMS. Prescriptions: Furosemide [Lasix 20 mg Tablet] 20 mg PO QAM #30 tablet
== END 2017-10-12 16:19 | disposition home or self-care (01) ==
LOC: ER 15:43
DX: R60.0 Localized edema (principal); T50.1X6A Underdosing of loop [high-ceiling] diuretics, initial encounter; Z91.128 Patient's intentional underdosing of medication regimen for other reason; Z91.14 Patient's other noncompliance with medication regimen; I10 Essential (primary) hypertension; J45.909 Unspecified asthma, uncomplicated; M54.9 Dorsalgia, unspecified; M25.50 Pain in unspecified joint; Z88.5 Allergy status to narcotic agent
CPT/HCPCS: 99284

== ENCOUNTER 2017-10-28 11:59 | Emergency (ER) | payer SELFPAY ==
[2017-10-28 12:59] LABS: ABSOLUTE BASOPHILS # (AUTO) 0.1 10^3/uL (0.0-0.2); ABSOLUTE EOSINOPHILS # (AUTO) 0.3 10^3/uL (0.0-0.6); ABSOLUTE LYMPHOCYTES (AUTO) 1.8 10^3/uL (0.5-4.7); ABSOLUTE MONOCYTES (AUTO) 0.6 10^3/uL (0.1-1.4); ABSOLUTE NEUT (AUTO) 3.3 10^3/uL (1.7-8.2); BASOPHILS % (AUTO) 1.2 % (0-2); EOSINOPHILS % (AUTO) 4.8 % (0-6); HEMATOCRIT 33.4 % (36.0-47.0); HEMOGLOBIN 10.8 g/dL (12.0-15.5); LYMPHOCYTES % (AUTO) 29.8 % (13-45); MEAN CORPUSCULAR HEMOGLOBIN 25.6 pg (27.0-33.4); MEAN CORPUSCULAR HGB CONC 32.4 g/dL (32.0-36.0); MEAN CORPUSCULAR VOLUME 79 fl (80-97); MONOCYTES % (AUTO) 9.3 % (3-13); PLATELET COUNT 260 10^3/uL (150-450); RED BLOOD COUNT 4.24 10^6/uL (3.72-5.28); RED CELL DISTRIBUTION WIDTH 15.8 % (11.5-14.0); SEGMENTED NEUTROPHILS % (AUTO) 54.9 % (42-78); TOTAL CELLS COUNTED % (AUTO) 100 %
--- NOTE | 2017-10-28 13:10 | RADIOLOGY REPORT (SQ) ---
EXAM DESCRIPTION: CHEST 2 VIEWS COMPLETED DATE/TIME: 10/28/2017 1:00 pm REASON FOR STUDY: Short of breath, using nebulizer more frequently COMPARISON: 09/23/2017. EXAM PARAMETERS: NUMBER OF VIEWS: two views TECHNIQUE: Digital Frontal and Lateral radiographic views of the chest acquired. RADIATION DOSE: NA LIMITATIONS: none FINDINGS: LUNGS AND PLEURA: No opacities, masses or pneumothorax. No pleural effusion. MEDIASTINUM AND HILAR STRUCTURES: No masses or contour abnormalities. HEART AND VASCULAR STRUCTURES: Heart normal size. No evidence for failure. BONES: No acute findings. HARDWARE: None in the chest. OTHER: No other significant finding. IMPRESSION: NO ACUTE RADIOGRAPHIC FINDING IN THE CHEST. TECHNICAL DOCUMENTATION: JOB ID: [id number] [employer]- All Rights Reserved Reading location - IP/workstation name: [email or web address]
[2017-10-28 13:14] LABS: ALANINE AMINOTRANSFERASE 31 U/L (9-52); ALBUMIN 3.9 g/dL (3.5-5.0); ALKALINE PHOSPHATASE 94 U/L (38-126); ANION GAP 13 (5-19); ASPARTATE AMINO TRANSFERASE 19 U/L (14-36); BILIRUBIN,DIRECT 0.2 mg/dL (0.0-0.4); BILIRUBIN,TOTAL 0.2 mg/dL (0.2-1.3); BLOOD UREA NITROGEN 14 mg/dL (7-20); CALCIUM 9.9 mg/dL (8.4-10.2); CARBON DIOXIDE 31 mmol/L (22-30); CHLORIDE 101 mmol/L (98-107); CREATINE KINASE 109 U/L (30-135); GLUCOSE 114 mg/dL (75-110); POTASSIUM 3.5 mmol/L (3.6-5.0); SODIUM 144.6 mmol/L (137-145); TOTAL PROTEIN 7.7 g/dL (6.3-8.2)
[2017-10-28 13:26] LABS: NT PRO BNP < 11 pg/mL (5-900); TROPONIN I < 0.012 ng/mL
--- NOTE | 2017-10-28 13:49 | ER Document Report ---
ED General - General Mode of Arrival: Ambulatory Information source: Patient TRAVEL OUTSIDE OF THE [place] IN LAST 30 DAYS: No <BERNIE RON - Last Filed: 10/28/17 13:43> <GINI ROMAN - Last Filed: 10/28/17 14:13> - General Chief Complaint: Pain All Over Stated Complaint: BODY ACHES, SHORT OF BREATH Time Seen by Provider: 10/28/17 12:17 Notes: Patient is a 52-year-old female well-known to this emergency department today who presents with complaints of "all over body pain". When asked what specifically made the patient decided to come in to the emergency department today she is unable to give an answer. Patient states her body aches are not worse than normal. Patient states she has been using her nebulizer a little more than normal recently. (BERNIE RON) - Related Data Allergies/Adverse Reactions: codeine [Codeine] Allergy (Unknown, Verified 10/28/17 12:00) Past Medical History - General Information source: Patient - Social History Smoking Status: Unknown if Ever Smoked Cigarette use (# per day): No Frequency of alcohol use: None Drug Abuse: None Lives with: Family Family History: Arthritis, CAD, CVA, DM, Hyperlipidemia, Hypertension Patient has suicidal ideation: No Patient has homicidal ideation: No - Past Medical History Cardiac Medical History: Reports: Hx Hypertension Comment Only: Hx Heart Attack - ANGINA Pulmonary Medical History: Reports: Hx Asthma Renal/ Medical History: Denies: Hx Peritoneal Dialysis GI Medical History: Reports: Hx Gastroesophageal Reflux Disease Musculoskeltal Medical History: Reports Hx Arthritis Psychiatric Medical History: Reports: Hx Anxiety, Hx Depression Surgical Hx: Negative - Immunizations Immunizations up to date: No Hx Diphtheria, Pertussis, Tetanus Vaccination: Yes Hx Pneumococcal Vaccination: 06/11/00 <BERNIE RON - Last Filed: 10/28/17 13:43> Review of Systems - Review of Systems Constitutional: No symptoms reported EENT: No symptoms reported Cardiovascular: No symptoms reported Respiratory: See HPI, Short of breath Gastrointestinal: No symptoms reported Genitourinary: No symptoms reported Female Genitourinary: No symptoms reported Musculoskeletal: See HPI, Joint pain - Generalized arthralgias Skin: No symptoms reported Hematologic/Lymphatic: No symptoms reported Neurological/Psychological: No symptoms reported <BERNIE RON - Last Filed: 10/28/17 13:43> Physical Exam <BERNIE RON - Last Filed: 10/28/17 13:43> <ABELNONIGINI - Last Filed: 10/28/17 14:13> - Vital signs Vitals: Temp Pulse Resp BP Pulse Ox 99.4 F 102 H 18 124/66 95 10/28/17 12:05 10/28/17 12:05 10/28/17 12:05 10/28/17 12:05 10/28/17 12:05 - Notes Notes: Physical Exam: General: Alert, appears well. HEENT: Normocephalic. Atraumatic. PERRL. Extraocular movements intact. Oropharynx clear. Neck: Supple. Non-tender. Respiratory: No respiratory distress. Clear and equal breath sounds bilaterally. Cardiovascular: Regular rate and rhythm. Abdominal: Obese. Non-tender. No distension. Normal Bowel Sounds. Back: Non-tender. No deformity or step off. Extremities: Moves all four extremities. Upper extremities: Normal inspection. Normal ROM. Lower extremities: Normal inspection. Trace edema bilaterally. Normal ROM. Neurological: Normal cognition. AAOx4. Normal speech. Psychological: Normal affect. Normal Mood. Skin: Warm. Dry. Normal color. (BERNIE RON) Course - Laboratory Result Diagrams: 10/28/17 12:44 10/28/17 12:44 <BERNIE RON - Last Filed: 10/28/17 13:43> - Laboratory Result Diagrams: 10/28/17 12:44 10/28/17 12:44 - Diagnostic Test Radiology reviewed: Image reviewed, Reports reviewed - Chest x-ray does not show any acute process. - EKG Interpretation by Tx EKG shows normal: Sinus rhythm, [place], Intervals, QRS Complexes, ST-T Waves Rate: Normal - 87 Rhythm: NSR P Waves: LAE <GINI ROMAN - Last Filed: 10/28/17 14:13> - Vital Signs Vital signs: Temp Pulse Resp BP Pulse Ox 99.4 F 102 H 18 124/66 95 10/28/17 12:05 10/28/17 12:05 10/28/17 12:05 10/28/17 12:05 10/28/17 12:05 - Laboratory Laboratory results interpreted by me: 10/28/17 10/28/17 12:44 12:44 Hgb 10.8 L Hct 33.4 L MCV 79 L MCH 25.6 L RDW 15.8 H Potassium 3.5 L Carbon Dioxide 31 H Glucose 114 H Discharge <BERNIE RON - Last Filed: 10/28/17 13:43> <GINI ROMAN - Last Filed: 10/28/17 14:13> - Discharge Clinical Impression: Generalized body aches, Shortness of breath Condition: Stable Disposition: HOME, SELF-CARE Additional Instructions: No abnormalities were found today on your lab work, chest x-ray, or physical examination. There is no clear explanation for your generalized body aches you have been having off and on for such a long time. There is no clear explanation for the shortness of breath that you have been experiencing off and on. You should continue any regular medications that you are supposed to take. Follow-up with your medical doctor at the [facility] in [place] if not feeling better. RETURN TO THE EMERGENCY ROOM IF ANY NEW OR WORSENING SYMPTOMS. Scribe Attestation: 10/28/17 14:11 I personally performed the services described in the documentation, reviewed and edited the documentation which was dictated to the scribe in my presence, and it accurately records my words and actions. (GINI ROMAN) Scribe Documentation - Scribe Written by Tracey:: Tracey Zelaya, 10/28/2017 1408 acting as scribe for :: Abel <BERNIE RON - Last Filed: 10/28/17 13:43>
[2017-10-28 14:36] VITALS: BP 122/75
--- NOTE | 2017-10-28 16:16 | EKG REPORT ---
SEVERITY:- BORDERLINE ECG - SINUS RHYTHM PROBABLE LEFT ATRIAL ABNORMALITY : Confirmed by: Duke Arias 28-Oct-2017 16:14:42
== END 2017-10-28 14:35 | disposition home or self-care (01) ==
LOC: ER 11:59
DX: M79.1 Myalgia (principal); R06.02 Shortness of breath; I10 Essential (primary) hypertension; J45.909 Unspecified asthma, uncomplicated; E66.9 Obesity, unspecified
CPT/HCPCS: 36415; 71046; 80053; 82550; 83880; 84484; 85025; 93005; 93010; 99284

== ENCOUNTER 2017-11-14 06:26 | Emergency (ER) | payer SELFPAY ==
--- NOTE | 2017-11-14 07:04 | ER Document Report ---
ED General - General Chief Complaint: Feet Swelling Stated Complaint: FEET SWELLING Time Seen by Provider: 11/14/17 06:43 Mode of Arrival: Ambulatory Information source: Patient Notes: 52-year-old female history of peripheral edema presents with complaints of swelling in the legs. Patient denies any fevers or chills denies any chest pain notes intermittent shortness of breath. Patient has had multiple previous episodes similar complaint. Patient notes she is on hydrochlorothiazide and Lasix, notes she started taking it over the past 2 days, normally she does not take these medications even though she has been prescribed this. TRAVEL OUTSIDE OF THE [place] IN LAST 30 DAYS: No - HPI Onset: Yesterday Onset/Duration: Sudden Quality of pain: Sharp Severity: Moderate Pain Level: 4 Associated symptoms: Leg swelling Exacerbated by: Denies Relieved by: Other - medications Similar symptoms previously: Yes Recently seen / treated by doctor: Yes - Related Data Allergies/Adverse Reactions: codeine [Codeine] Allergy (Unknown, Verified 10/28/17 12:00) Past Medical History - Social History Smoking Status: Never Smoker Cigarette use (# per day): No Chew tobacco use (# tins/day): No Smoking Education Provided: No Family History: Arthritis, CAD, CVA, DM, Hyperlipidemia, Hypertension - Past Medical History Cardiac Medical History: Reports: Hx Hypertension Comment Only: Hx Heart Attack - ANGINA Pulmonary Medical History: Reports: Hx Asthma Renal/ Medical History: Denies: Hx Peritoneal Dialysis GI Medical History: Reports: Hx Gastroesophageal Reflux Disease Musculoskeltal Medical History: Reports Hx Arthritis Psychiatric Medical History: Reports: Hx Anxiety, Hx Depression - Immunizations Immunizations up to date: No Hx Diphtheria, Pertussis, Tetanus Vaccination: Yes Hx Pneumococcal Vaccination: 06/11/00 Review of Systems - Review of Systems Notes: REVIEW OF SYSTEMS: CONSTITUTIONAL : Denies fever, chills, or sweats. Denies recent illness. EENT: Denies eye, ear, throat, or mouth pain or symptoms. Denies nasal or sinus congestion or discharge. Denies throat, tongue, or mouth swelling or difficulty swallowing. CARDIOVASCULAR: Denies chest pain. Denies palpitations or racing or irregular heart beat. Denies ankle edema. RESPIRATORY: Denies cough, cold, or chest congestion. Denies shortness of breath, difficulty breathing, or wheezing. GASTROINTESTINAL: Denies abdominal pain or distention. Denies nausea, vomiting , or diarrhea. Denies blood in vomitus, stools, or per rectum. Denies black, tarry stools. Denies constipation. GENITOURINARY: Denies difficulty urinating, painful urination, burning, frequency, blood in urine, or discharge. FEMALE GENITOURINARY: Denies vaginal bleeding, heavy or abnormal periods, irregular periods. Denies vaginal discharge or odor. MUSCULOSKELETAL: Admits to peripheral edema SKIN: Denies rash, lesions or sores. HEMATOLOGIC : Denies easy bruising or bleeding. LYMPHATIC: Denies swollen, enlarged glands. NEUROLOGICAL: Denies confusion or altered mental status. Denies passing out or loss of consciousness. Denies dizziness or lightheadedness. Denies headache. Denies weakness or paralysis or loss of use of either side. Denies problems with gait or speech. Denies sensory loss, numbness, or tingling. Denies seizures. PSYCHIATRIC: Denies anxiety or stress. Denies depression, suicidal ideation, or homicidal ideation. ALL OTHER SYSTEMS REVIEWED AND NEGATIVE. PHYSICAL EXAMINATION: GENERAL: Well-appearing, well-nourished and in no acute distress. HEAD: Atraumatic, normocephalic. EYES: Pupils equal round and reactive to light, extraocular movements intact, conjunctiva are normal. ENT: Nares patent, oropharynx clear without exudates. Moist mucous membranes. NECK: Normal range of motion, supple without lymphadenopathy LUNGS: Breath sounds clear to auscultation bilaterally and equal. No wheezes rales or rhonchi. HEART: Regular rate and rhythm without murmurs ABDOMEN: Soft, nontender, nondistended abdomen. No guarding, no rebound. No masses appreciated. Female : deferred Musculoskeletal: Bilateral lower extremity swelling +2 chronic venous stasis noted NEUROLOGICAL: Cranial nerves grossly intact. Normal speech, normal gait. Normal sensory, motor exams PSYCH: Normal mood, normal affect. SKIN: Dry scaly Dictation was performed using [employer] voice recognition software Physical Exam - Vital signs Vitals: Temp Pulse Resp BP Pulse Ox 97.3 F 82 18 131/70 H 99 11/14/17 06:29 11/14/17 06:29 11/14/17 06:29 11/14/17 06:29 11/14/17 06:29 Course - Re-evaluation Re-evalutation: 11/14/17 07:27 Patient has chronic venous stasis changes noted, she has not been taking her medications as prescribed, x-ray has been performed to rule out 11/14/17 07:30 Chest x-ray noted no significant abnormality, patient has been encouraged to take her medications as prescribed, we will increase the Lasix to 40 mg for the next 3 days until her symptoms resolve and I will have her follow-up with her primary care physician for lab and further evaluation Patient encouraged to take increased oral potassium After performing a Medical Screening Examination, I estimate there is LOW risk for RUPTURED ESOPHAGUS, PNEUMOTHORAX, PULMONARY EMBOLISM, ACUTE CORONARY SYNDROME, OR THORACIC AORTIC DISSECTION, thus I consider the discharge disposition reasonable. I have reevaluated this patient multiple times and no significant life threatening changes are noted. The patient and I have discussed the diagnosis and risks, and we agree with discharging home with close follow-up. We also discussed returning to the Emergency Department immediately if new or worsening symptoms occur. We have discussed the symptoms which are most concerning (e.g., bloody sputum, worsening pain or shortness of breath) that necessitate immediate return. - Vital Signs Vital signs: Temp Pulse Resp BP Pulse Ox 97.3 F 82 18 131/70 H 99 11/14/17 06:29 18 06:29 11/14/17 06:29 11/14/17 06:29 11/14/17 06:29 - Diagnostic Test Radiology reviewed: Image reviewed - Chest x-ray 2 view notes no significant abnormality, Reports reviewed Discharge - Discharge Clinical Impression: Peripheral edema Condition: Stable Disposition: HOME, SELF-CARE Instructions: Edema, Peripheral ([facility]) Additional Instructions: Follow up with your physician tomorrow for further care or return to the ED IMMEDIATELY if symptoms worsen or new concerns occur. If you cannot afford to follow up with your primary care physician a list of low cost clinics have been provided at the end of your discharge papers as well.
--- NOTE | 2017-11-14 07:20 | RADIOLOGY REPORT (SQ) ---
EXAM DESCRIPTION: XR CHEST 2 VIEWS CLINICAL HISTORY: 52 years Female, peripheral edema COMPARISON: None. FINDINGS: Adequate lung volume, clear parenchyma, normal cardiac silhouette, and intact bony thorax. IMPRESSION: No acute cardiopulmonary findings.
[2017-11-14 08:02] VITALS: BP 127/73
== END 2017-11-14 08:04 | disposition home or self-care (01) ==
LOC: ER 06:26
DX: R60.9 Edema, unspecified (principal); Z88.6 Allergy status to analgesic agent
CPT/HCPCS: 71046; 99284

== ENCOUNTER 2017-11-20 08:11 | Emergency (ER) | payer SELFPAY ==
--- NOTE | 2017-11-20 09:22 | ER Document Report ---
ED General Pain - General Chief Complaint: Pain All Over Stated Complaint: BODY PAIN Time Seen by Provider: 11/20/17 08:29 Mode of Arrival: Ambulatory Information source: Patient Notes: Patient is a 52-year-old female well-known to this emergency department who presents to the ER today for body aches, left lower dental pain 1 week. Patient states that she does have a dentist to follow-up with but that "amoxicillin helps my tooth pain." She admits to chills but has not taken her temperature. TRAVEL OUTSIDE OF THE [place] IN LAST 30 DAYS: No - Related Data Allergies/Adverse Reactions: codeine [Codeine] Allergy (Unknown, Verified 11/20/17 08:12) Past Medical History - General Information source: Patient - Social History Smoking Status: Never Smoker Chew tobacco use (# tins/day): No Frequency of alcohol use: None Drug Abuse: None Family History: Arthritis, CAD, CVA, DM, Hyperlipidemia, Hypertension Patient has suicidal ideation: No Patient has homicidal ideation: No - Past Medical History Cardiac Medical History: Reports: Hx Hypertension Comment Only: Hx Heart Attack - ANGINA Pulmonary Medical History: Reports: Hx Asthma Renal/ Medical History: Denies: Hx Peritoneal Dialysis GI Medical History: Reports: Hx Gastroesophageal Reflux Disease Musculoskeltal Medical History: Reports Hx Arthritis Psychiatric Medical History: Reports: Hx Anxiety, Hx Depression - Immunizations Immunizations up to date: No Hx Diphtheria, Pertussis, Tetanus Vaccination: Yes Hx Pneumococcal Vaccination: 06/11/00 Review of Systems - Review of Systems Constitutional: No symptoms reported EENT: See HPI Cardiovascular: No symptoms reported Respiratory: No symptoms reported Gastrointestinal: No symptoms reported Genitourinary: No symptoms reported Female Genitourinary: No symptoms reported Musculoskeletal: See HPI Skin: No symptoms reported Hematologic/Lymphatic: No symptoms reported Neurological/Psychological: No symptoms reported Physical Exam - Vital signs Vitals: Temp Pulse Resp BP Pulse Ox 98.7 F 83 18 122/68 98 11/20/17 08:15 11/20/17 08:15 11/20/17 08:15 11/20/17 08:15 11/20/17 08:15 - Notes Notes: PHYSICAL EXAMINATION: GENERAL: Well-appearing and in no acute distress. HEAD: Atraumatic, normocephalic. EYES: Pupils equal round and reactive to light, extraocular movements intact, sclera anicteric, conjunctiva are normal. ENT: ear canals without erythema or foreign body, TMs pearly beaulieu with good bony landmarks, nares patent, oropharynx clear without exudates. Moist mucous membranes. Tender to left lower gumline at tooth #21, mild erythema and edema at gumline to this tooth, no obvious abscess NECK: Normal range of motion, supple without lymphadenopathy LUNGS: CTAB and equal. No wheezes rales or rhonchi. HEART: Regular rate and rhythm without murmurs EXTREMITIES: Normal range of motion, no pitting edema. No cyanosis. NEUROLOGICAL: Cranial nerves grossly intact. Normal sensory/motor exams. PSYCH: Normal mood, normal affect. SKIN: Warm, Dry, normal turgor, no rashes or lesions noted Course - Re-evaluation Re-evalutation: 11/20/17 09:47 Patient is here frequently for amoxicillin, however today she does have some mild erythema and edema to the gumline around tooth #21, amoxicillin is appropriate for this. I will place her on amoxicillin. - Vital Signs Vital signs: Temp Pulse Resp BP Pulse Ox 98.7 F 83 18 122/68 98 11/20/17 08:15 11/20/17 08:15 11/20/17 08:15 11/20/17 08:15 11/20/17 08:15 Discharge - Discharge Clinical Impression: Dental infection Condition: Stable Disposition: HOME, SELF-CARE Additional Instructions: Return immediately for any new or worsening symptoms. Follow up with primary care provider, call tomorrow to make followup appointment. Prescriptions: Amoxicillin 500 mg PO TID #30 capsule Referrals: JORDYN HERNANDEZ MD [Primary Care Provider] - Follow up as needed
[2017-11-20 09:51] VITALS: BP 121/79
== END 2017-11-20 09:55 | disposition home or self-care (01) ==
LOC: ER 08:11
DX: K04.7 Periapical abscess without sinus (principal); M79.1 Myalgia; Z88.6 Allergy status to analgesic agent
CPT/HCPCS: 99283

== ENCOUNTER 2017-11-22 19:05 | Emergency (ER) | payer SELFPAY ==
[2017-11-22 19:13] VITALS: BP 123/63
--- NOTE | 2017-11-22 20:00 | ER Document Report ---
ED General - General Chief Complaint: Pain All Over Stated Complaint: BODY PAIN Time Seen by Provider: 11/22/17 19:50 Notes: 52-year-old female PMH chronic body aches and pains here with complaints of continued body aches and pains. She has been taking aspirin 325 mg daily for the symptoms. She states that she continues to have these body aches. They have been ongoing for many many many years. She denies any other symptoms. TRAVEL OUTSIDE OF THE [place] IN LAST 30 DAYS: No - Related Data Allergies/Adverse Reactions: codeine [Codeine] Allergy (Unknown, Verified 11/20/17 08:12) Past Medical History - Social History Smoking Status: Never Smoker Chew tobacco use (# tins/day): No Frequency of alcohol use: None Drug Abuse: None Family History: Arthritis, CAD, CVA, DM, Hyperlipidemia, Hypertension Patient has suicidal ideation: No Patient has homicidal ideation: No - Past Medical History Cardiac Medical History: Reports: Hx Hypertension Comment Only: Hx Heart Attack - ANGINA Pulmonary Medical History: Reports: Hx Asthma Renal/ Medical History: Denies: Hx Peritoneal Dialysis GI Medical History: Reports: Hx Gastroesophageal Reflux Disease Musculoskeltal Medical History: Reports Hx Arthritis Psychiatric Medical History: Reports: Hx Anxiety, Hx Depression - Immunizations Immunizations up to date: No Hx Diphtheria, Pertussis, Tetanus Vaccination: Yes Hx Pneumococcal Vaccination: 06/11/00 Review of Systems - Review of Systems Notes: See history of present illness for pertinent positive review of systems; otherwise all review of systems have been reviewed and are negative Physical Exam - Vital signs Vitals: Temp Pulse Resp BP Pulse Ox 99.5 F 79 20 123/63 97 11/22/17 19:11 11/22/17 19:11 11/22/17 19:11 11/22/17 19:11 11/22/17 19:11 - Notes Notes: PHYSICAL EXAMINATION: GENERAL: Well-appearing and in no acute distress. HEAD: Atraumatic, normocephalic. EYES: Pupils equal round and reactive to light, extraocular movements intact, sclera anicteric, conjunctiva are normal. ENT: nares patent, oropharynx clear without exudates. Moist mucous membranes. NECK: Normal range of motion, supple without lymphadenopathy LUNGS: CTAB and equal. No wheezes rales or rhonchi. HEART: Regular rate and rhythm without murmurs ABDOMEN: Soft, no tenderness. No facial grimacing/wincing upon palpation. No guarding, no rebound. EXTREMITIES: Normal range of motion, no pitting edema. No cyanosis. No tenderness palpation of the extremities or torso NEUROLOGICAL: Cranial nerves grossly intact. Normal sensory/motor exams. PSYCH: Normal mood, normal affect. SKIN: Warm, Dry, normal turgor, no rashes or lesions noted Course - Re-evaluation Re-evalutation: 11/22/17 19:59 MEDICAL DECISION MAKING: The patient has chronic body aches and pains and does not have any other new symptoms I have low clinical suspicion for acute emergent pathology The patient does not have an emergency medical condition today based on the medical screening exam We will offer her a prescription for meloxicam Instructed follow-up PCP next day or few Patient understands and agrees to the plan of care - Vital Signs Vital signs: Temp Pulse Resp BP Pulse Ox 99.5 F 79 20 123/63 97 11/22/17 19:11 11/22/17 19:11 11/22/17 19:11 11/22/17 19:11 11/22/17 19:11 Discharge - Discharge Clinical Impression: Body aches Condition: Good Disposition: HOME, SELF-CARE Additional Instructions: You were seen in the emergency department at [facility]. Use the prescribed medication as needed for your pain. Please followup with your primary physician in the next few days for further management/evaluation. Please return to the emergency department for worsening of symptoms or any symptom that you deem to be concerning or life-threatening. Thank you for allowing us to be part of your care. Prescriptions: Meloxicam 7.5 mg PO DAILYP PRN #7 tablet PRN Reason: Referrals: JORDYN HERNANDEZ MD [Primary Care Provider] - Follow up as needed
== END 2017-11-22 19:59 | disposition home or self-care (01) ==
LOC: ER 19:05
DX: M79.1 Myalgia (principal); I10 Essential (primary) hypertension; Z79.82 Long term (current) use of aspirin; Z88.6 Allergy status to analgesic agent
CPT/HCPCS: 99283

== ENCOUNTER 2017-12-10 18:41 | Emergency (ER) | payer SELFPAY ==
[2017-12-10 18:53] VITALS: BP 123/54
--- NOTE | 2017-12-10 19:54 | ER Document Report ---
ED General - General Chief Complaint: Medication Refill Stated Complaint: MEDICATION REFILL Time Seen by Provider: 12/10/17 19:47 Mode of Arrival: Ambulatory Information source: Patient Notes: Patient presents with request for her hydrochlorothiazide 25 mg tablets. Patient reports that she takes half a tablet twice a day. Patient reports that she ran out today. Patient has no acute complaints today. TRAVEL OUTSIDE OF THE [place] IN LAST 30 DAYS: No - Related Data Allergies/Adverse Reactions: codeine [Codeine] Allergy (Unknown, Verified 12/10/17 19:17) Past Medical History - General Information source: Patient - Social History Smoking Status: Never Smoker Frequency of alcohol use: None Drug Abuse: None Family History: Arthritis, CAD, CVA, DM, Hyperlipidemia, Hypertension - Past Medical History Cardiac Medical History: Reports: Hx Hypertension Comment Only: Hx Heart Attack - ANGINA Pulmonary Medical History: Reports: Hx Asthma Renal/ Medical History: Denies: Hx Peritoneal Dialysis GI Medical History: Reports: Hx Gastroesophageal Reflux Disease Musculoskeltal Medical History: Reports Hx Arthritis Psychiatric Medical History: Reports: Hx Anxiety, Hx Depression - Immunizations Immunizations up to date: No Hx Diphtheria, Pertussis, Tetanus Vaccination: Yes Hx Pneumococcal Vaccination: 06/11/00 Review of Systems - Review of Systems Constitutional: No symptoms reported EENT: No symptoms reported Cardiovascular: No symptoms reported Respiratory: No symptoms reported Gastrointestinal: No symptoms reported Genitourinary: No symptoms reported Female Genitourinary: No symptoms reported Musculoskeletal: No symptoms reported Skin: No symptoms reported Hematologic/Lymphatic: No symptoms reported Neurological/Psychological: No symptoms reported Physical Exam - Vital signs Vitals: Temp Pulse Resp BP Pulse Ox 98.0 F 90 16 123/54 L 99 12/10/17 18:51 12/10/17 18:51 12/10/17 18:51 12/10/17 18:51 12/10/17 18:51 - Notes Notes: PHYSICAL EXAMINATION: GENERAL: Well-appearing, well-nourished and in no acute distress. HEAD: Atraumatic, normocephalic. EYES: Pupils equal round and reactive to light, extraocular movements intact, conjunctiva are normal. LUNGS: Breath sounds clear to auscultation bilaterally and equal. No wheezes rales or rhonchi. HEART: Regular rate and rhythm without murmurs Musculoskeletal: Normal range of motion, no pitting or edema. No cyanosis. NEUROLOGICAL: Cranial nerves grossly intact. Normal speech, normal gait. Normal sensory, motor exams PSYCH: Normal mood, normal affect. SKIN: Warm, Dry, normal turgor, no rashes or lesions noted. Course - Re-evaluation Re-evalutation: Will refill patient's hydrochlorothiazide per her request. Medication bottles are present, will order them exactly as previously prescribed. Patient instructed to follow-up with her primary care provider for further refills. - Vital Signs Vital signs: Temp Pulse Resp BP Pulse Ox 98.0 F 90 16 123/54 L 99 12/10/17 18:51 12/10/17 18:51 12/10/17 18:51 12/10/17 18:51 12/10/17 18:51 Discharge - Discharge Clinical Impression: Medication refill Condition: Stable Disposition: HOME, SELF-CARE Additional Instructions: A refill of your hydrochlorothiazide is being provided to you today for 2 weeks. Please follow-up with your primary care doctor for additional prescriptions. Prescriptions: Hydrochlorothiazide 0.5 tab PO BID #30 tablet Referrals: RADHA LOFTON, ROSHNI [Primary Care Provider] - Follow up as needed
== END 2017-12-10 20:02 | disposition home or self-care (01) ==
LOC: ER 18:41
DX: Z76.0 Encounter for issue of repeat prescription (principal); I10 Essential (primary) hypertension; J45.909 Unspecified asthma, uncomplicated; Z88.5 Allergy status to narcotic agent
CPT/HCPCS: 99281

== ENCOUNTER 2017-12-12 11:02 | Emergency (ER) | payer SELFPAY ==
[2017-12-12 11:10] VITALS: BP 127/66
--- NOTE | 2017-12-12 11:31 | ER Document Report ---
ED General - General Mode of Arrival: Ambulatory Information source: Patient TRAVEL OUTSIDE OF THE [place] IN LAST 30 DAYS: No - General Chief Complaint: Shortness Of Breath Stated Complaint: BODY PAIN Notes: 52 y.o female presents to the ED with anxiety, nauseated and "feeling hot" and wanting to get checked out. Pt denies any fever, diarrhea or dysuria. Pt denies running out of her anxiety medication at home and that she has all the medications that she needs right now. Pt denies any other complaints. (KARLA BRO) - Related Data Allergies/Adverse Reactions: codeine [Codeine] Allergy (Unknown, Verified 12/10/17 19:17) Past Medical History - General Information source: Patient - Social History Smoking Status: Never Smoker Chew tobacco use (# tins/day): No Frequency of alcohol use: None Drug Abuse: None Family History: Arthritis, CAD, CVA, DM, Hyperlipidemia, Hypertension Patient has suicidal ideation: No Patient has homicidal ideation: No - Past Medical History Cardiac Medical History: Reports: Hx Hypertension Comment Only: Hx Heart Attack - ANGINA Pulmonary Medical History: Reports: Hx Asthma Renal/ Medical History: Denies: Hx Peritoneal Dialysis GI Medical History: Reports: Hx Gastroesophageal Reflux Disease Musculoskeltal Medical History: Reports Hx Arthritis Psychiatric Medical History: Reports: Hx Anxiety, Hx Depression - Immunizations Immunizations up to date: No Hx Diphtheria, Pertussis, Tetanus Vaccination: Yes Hx Pneumococcal Vaccination: 06/11/00 Review of Systems - Review of Systems Constitutional: See HPI, Other - feeling hot. denies: Fever EENT: No symptoms reported Cardiovascular: No symptoms reported Respiratory: No symptoms reported Gastrointestinal: See HPI, Nausea. denies: Diarrhea Genitourinary: See HPI. denies: Dysuria Female Genitourinary: No symptoms reported Musculoskeletal: No symptoms reported Skin: No symptoms reported Hematologic/Lymphatic: No symptoms reported Neurological/Psychological: See HPI, Anxiety -: Yes All other systems reviewed and negative Physical Exam - Vital signs Vitals: Temp Pulse Resp BP Pulse Ox 99.0 F 107 H 16 127/66 H 97 12/12/17 11:08 12/12/17 11:08 12/12/17 11:08 12/12/17 11:08 12/12/17 11:08 - Notes Notes: Physical Exam: General: Alert, appears well. HEENT: Normocephalic. Atraumatic. PERRL. Extraocular movements intact. Oropharynx clear. Neck: Supple. Non-tender. Respiratory: No respiratory distress. Clear and equal breath sounds bilaterally. Cardiovascular: Regular rate and rhythm. Abdominal: Normal Inspection. Non-tender. No distension. Normal Bowel Sounds. Back: Non-tender. No deformity or step off. Extremities: Moves all four extremities. Upper extremities: Normal inspection. Normal ROM. Lower extremities: Normal inspection. No edema. Normal ROM. Neurological: Normal cognition. AAOx3. Normal speech. Psychological: Normal affect. Normal Mood. Skin: Warm. Dry. Normal color. (KARLA BRO) Course - Re-evaluation Re-evalutation: 12/12/17 11:31 Patient well-appearing in no acute distress stating she was feeling anxious prior to coming to the emergency department. She denies any chest pain denies any shortness of breath at this time abdominal pain dysuria. No recent nausea vomiting fevers or chills. No recent illnesses. Patient has been to this emergency department multiple times for similar symptoms but she is asymptomatic at this time. Physical exam shows no concerning findings. I had a lengthy conversation with patient she is in no acute distress. Will be discharged at this time for well check exam. She is pleasant and agrees with plan (ERIK OSORIO) - Vital Signs Vital signs: Temp Pulse Resp BP Pulse Ox 99.0 F 107 H 16 127/66 H 97 12/12/17 11:08 12/12/17 11:08 12/12/17 11:08 12/12/17 11:08 12/12/17 11:08 Discharge - Discharge Clinical Impression: Well adult health check Condition: Good Disposition: HOME, SELF-CARE Additional Instructions: Your physical exam was unremarkable today. Please return to the emergency department for any other concerns or development of any other symptoms. Referrals: RADHA LOFTON, REEL OPERATOR [Primary Care Provider] - Follow up as needed Scribe Attestation: 12/12/17 20:01 I personally performed the services described documentation, reviewed and edited the documentation which was dictated to describe my presence, and it accurately records my words and actions. (ERIK OSORIO) Scribe Documentation - Scribe Written by Scribe:: Tracey Blanc 12/12/17 [id number] acting as scribe for :: Rodger
== END 2017-12-12 12:10 | disposition home or self-care (01) ==
LOC: ER 11:02
DX: F41.9 Anxiety disorder, unspecified (principal); Z79.899 Other long term (current) drug therapy; I10 Essential (primary) hypertension; J45.909 Unspecified asthma, uncomplicated; Z88.5 Allergy status to narcotic agent
CPT/HCPCS: 99283

== ENCOUNTER 2017-12-28 14:37 | Emergency (ER) | payer SELFPAY ==
[2017-12-28 14:48] VITALS: BP 159/76
--- NOTE | 2017-12-28 15:37 | ER Document Report ---
HPI - HPI Patient complains to provider of: anxious Onset: This morning Onset/Duration: Intermittent Quality of pain: Achy Severity: Mild Pain Level: 1 Context: 52-year-old patient presents to ED because she states she felt like her heart was racing due to anxiety. Respirations regular unlabored. O2 sat was 100% respirations were 16 pulse was 96 blood pressure was 139/68 with a temp of 98.5 when I examined her. Her lungs are clear to auscultation she is speaking in even full sentences and is able to walk with a even steady gait. There is no signs and symptoms of any acute illnesses at this time. Associated Symptoms: Other - Anxiety Exacerbated by: Denies Relieved by: Denies Similar symptoms previously: Yes Recently seen / treated by doctor: Yes - ROS ROS below otherwise negative: Yes - CONSTITUTIONAL Constitutional: DENIES: Fever, Chills - EENT EENT: DENIES: Sore Throat, Ear Pain, Nasal Drainage-Clear, Nasal Drainage- Purulent, Congestion, Eye problems - NEURO Neurology: DENIES: Headache, Weakness, Vision blurred, Dizzinesss / Vertigo - CARDIOVASCULAR Cardiovascular: DENIES: Chest pain - RESPIRATORY Respiratory: DENIES: Trouble Breathing, Coughing - GASTROINTESTINAL Gastrointestinal: DENIES: Abdominal Pain, Nausea, Patient vomiting, Diarrhea, Constipation, Black / Bloody Stools - URINARY Urinary: DENIES: Dysuria, Urgency, Frequency - REPRODUCTIVE Reproductive: DENIES: :, Postmenopausal, Abnormal bleeding / discharge - MUSCULOSKELETAL Musculoskeletal: REPORTS: Extremity pain - body aches, Back Pain - Body aches, Neck Pain - Body aches - DERM Skin Color: Normal Skin Problems: None Past Medical History - General Information source: Patient - Social History Smoking Status: Never Smoker Cigarette use (# per day): No Chew tobacco use (# tins/day): No Smoking Education Provided: No Frequency of alcohol use: None Drug Abuse: None Lives with: Family Family History: Arthritis, CAD, CVA, DM, Hyperlipidemia, Hypertension Patient has suicidal ideation: No Patient has homicidal ideation: No - Past Medical History Cardiac Medical History: Reports: Hx Hypertension Comment Only: Hx Heart Attack - ANGINA Pulmonary Medical History: Reports: Hx Asthma EENT Medical History: Reports: None Neurological Medical History: Reports: None Endocrine Medical History: Reports: None Renal/ Medical History: Reports: None Malignancy Medical History: Reports: None GI Medical History: Reports: Hx Gastroesophageal Reflux Disease Musculoskeletal Medical History: Reports Hx Arthritis Skin Medical History: Reports None Psychiatric Medical History: Reports: Hx Anxiety, Hx Depression Traumatic Medical History: Reports: None Infectious Medical History: Reports: None Surgical Hx: Negative Past Surgical History: Reports: None - Immunizations Immunizations up to date: No Hx Diphtheria, Pertussis, Tetanus Vaccination: Yes Hx Pneumococcal Vaccination: 06/11/00 Vertical Provider Document - CONSTITUTIONAL Agree With Documented VS: Yes Exam Limitations: No Limitations General Appearance: WD/WN, No Apparent Distress - INFECTION CONTROL TRAVEL OUTSIDE OF THE [place] IN LAST 30 DAYS: No - HEENT HEENT: Atraumatic, Normal ENT Exam, Normocephalic, PERRLA - NECK Neck: Normal Inspection, Supple, Thyroid Normal - RESPIRATORY Respiratory: Breath Sounds Normal, No Respiratory Distress - Pulse ox 100% respirations 16 - CARDIOVASCULAR Cardiovascular: Regular Rate - 96 pulse and blood pressure was 139/68 temperature was 98.5, Regular Rhythm, No Murmur. negative: Tachycardia - GI/ABDOMEN Gastrointestinal: Abdomen Soft, Abdomen Non-Tender, No Organomegaly, Normal Bowel Sounds - BACK Back: Normal Inspection - MUSCULOSKELETAL/EXTREMETIES Musculoskeletal/Extremeties: MAEW, FROM, Tender, No Edema - Pains and body aches - NEURO Level of Consciousness: Awake, Alert, Appropriate Motor/Sensory: No Motor Deficit - DERM Integumentary: Warm, Dry, No Rash Course - Re-evaluation Re-evalutation: 12/28/17 16:38 Chief complaint of body aches. She states her blood pressure was too high her blood pressure was 139/68. She states she had a racing heart and her pulse was regular at 96 apically. Her O2 sats on the pulse ox was 100% respirations were 16 lungs were clear to auscultation temp was 98.5. Patient was concerned that her blood sugar was elevated. Her blood sugar was 96. She states eating cinnamon toast crunch cereal for breakfast and her blood pressure sugar was still only 96. Patient instructed to follow-up with her primary doctor. - Vital Signs Vital signs: Temp Pulse Resp BP Pulse Ox 99.5 F 96 16 159/76 H 99 12/28/17 14:47 12/28/17 15:27 12/28/17 14:47 12/28/17 14:47 12/28/17 15:27 Discharge - Discharge Clinical Impression: Body aches, Anxiety Condition: Stable Disposition: HOME, SELF-CARE Instructions: Anxiety ([facility]) Additional Instructions: These continue to take your medications as prescribed by your primary care doctor. Your pulse was 96 today your blood pressure was 139/68 your afebrile with a temperature of 98.5. Your lungs were clear respirations regular and unlabored. Please call your primary care doctor to follow-up with your concerns. Your blood sugar was tested at in the emergency room for your request and was 96 which is normal. He states he had eaten cinnamon toast crunch for breakfast and still had a normal blood sugar. Anxiety The physician feels that some of your health problems are being caused by anxiety. Anxiety affects your health in many ways. Anxiety alone can cause palpitations, sweats, chest pains, abdominal pains, shortness of breath, and headaches. It contributes to ulcer disease, high blood pressure, irritable bowel syndrome, and has been shown to cause flare-ups of many other diseases. Anxiety is not a simple disorder to treat. If the anxiety is due to recent life stresses, you may simply need time to "work through" the changes. If the anxiety is due to an underlying unhappiness with yourself or due to psychiatric disturbance, professional help will be needed. Your physician can refer you for further help if needed. Anti-anxiety medication is occasionally given if the stress is acute or if you are having trouble sleeping. Chronic or frequent use of these medications is not a good idea because the body becomes reliant on it, preventing you from dealing with life's normal stresses. Acetaminophen Acetaminophen may be taken for pain relief or fever control. It's much safer than aspirin, offering a wider range of "safe" dosages. It is safe during . Some brand names are Tylenol, Panadol, Datril, Anacin 3, Tempra, and Liquiprin. Acetaminophen can be repeated every four hours. The following are maximum recommended dosages: WEIGHT Dose Drops Elixir Chewable( 80mg) (LBS.) drprs=droppers tsp=teaspoon 6 40 mg .4 ml (1/2) 6-11 80 mg .8 ml (full) 1/2 tsp 1 tab 12-16 120 mg 1 1/2 drprs 3/4 tsp 1 1/2 tabs 17-23 160 mg 2 drprs 1 tsp 2 tabs 24-30 240 mg 3 drprs 1 1/2 tsp 3 tabs 30-35 320 mg 2 tsp 4 tabs 36-41 360 mg 2 1/4 tsp 4 1 /2 tabs 42-47 400 mg 2 1/2 tsp 5 tabs 48-53 480 mg 3 tsp 6 tabs 54-59 520 mg 3 1/4 tsp 6 1 /2 tabs 60-64 560 mg 3 1/2 tsp 7 tabs 65-70 600 mg 3 3/4 tsp 7 1 /2 tabs 71-76 640 mg 4 tsp 8 tabs 77-82 720 mg 4 1/2 tsp 9 tabs 83-88 800 mg 5 tsp 10 tabs >89 pounds or adults 650 mg to 900 mg Acetaminophen can be repeated every four hours. Maximum daily dose not to exceed 4000 mg. These maximum recommended dosages are slightly higher than the dosages written on the product container, but these dosages are very safe and well below the toxic dosage for acetaminophen. FOLLOW-UP CARE: If you have been referred to a physician for follow-up care, call the physician s office for an appointment as you were instructed or within the next two days. If you experience worsening or a significant change in your symptoms, notify the physician immediately or return to the Emergency Department at any time for re-evaluation. Forms: Elevated Blood Pressure Referrals: RADHA LOFTON NP [Primary Care Provider] - Follow up in 3-5 days
== END 2017-12-28 16:13 | disposition home or self-care (01) ==
LOC: ER 14:37
DX: F41.9 Anxiety disorder, unspecified (principal); M54.9 Dorsalgia, unspecified; M54.2 Cervicalgia; I10 Essential (primary) hypertension; J45.909 Unspecified asthma, uncomplicated
CPT/HCPCS: 82962; 99283

== ENCOUNTER 2018-01-02 06:46 | Emergency (ER) | payer SELFPAY ==
--- NOTE | 2018-01-02 07:34 | ER Document Report ---
ED General <CODIE JOSEI - Last Filed: 01/02/18 10:52> - General TRAVEL OUTSIDE OF THE [place] IN LAST 30 DAYS: No - HPI Onset/Duration: Gradual, Worse Quality of pain: No pain Severity: None Pain Level: Denies <PRISCILLA HAMILTON - Last Filed: 01/02/18 11:06> - General Chief Complaint: Psych Problem Stated Complaint: BLOOD SUGAR PROBLEM Time Seen by Provider: 01/02/18 07:32 Notes: 52-year-old female patient to the emergency department for evaluation of anxiety. Patient is a well-known patient to the emergency department. Frequently calls the ambulance. Was arrested recently for abuse of ambulance services. Was bonded out and proceeded to call the ambulance again. Mental health services are aware of her. (PRISCILLA HAMILTON) - Related Data Allergies/Adverse Reactions: codeine [Codeine] Allergy (Unknown, Verified 12/28/17 14:43) Past Medical History - Social History Smoking Status: Unknown if Ever Smoked Chew tobacco use (# tins/day): No Frequency of alcohol use: None Drug Abuse: None Lives with: Family Patient has suicidal ideation: No Patient has homicidal ideation: No <REBECALINA - Last Filed: 01/02/18 10:52> - General Information source: Patient - Social History Smoking Status: Unknown if Ever Smoked Chew tobacco use (# tins/day): No Frequency of alcohol use: None Drug Abuse: None Family History: Arthritis, CAD, CVA, DM, Hyperlipidemia, Hypertension - Past Medical History Cardiac Medical History: Reports: Hx Hypertension Comment Only: Hx Heart Attack - ANGINA Pulmonary Medical History: Reports: Hx Asthma Renal/ Medical History: Denies: Hx Peritoneal Dialysis GI Medical History: Reports: Hx Gastroesophageal Reflux Disease Musculoskeletal Medical History: Reports Hx Arthritis Psychiatric Medical History: Reports: Hx Anxiety, Hx Depression - Immunizations Immunizations up to date: No Hx Diphtheria, Pertussis, Tetanus Vaccination: Yes Hx Pneumococcal Vaccination: 06/11/00 <PRISCILLA HAMILTON - Last Filed: 01/02/18 11:06> Review of Systems - Review of Systems Constitutional: No symptoms reported EENT: No symptoms reported Cardiovascular: No symptoms reported Respiratory: No symptoms reported Gastrointestinal: No symptoms reported Genitourinary: No symptoms reported Female Genitourinary: No symptoms reported Musculoskeletal: No symptoms reported Skin: No symptoms reported Hematologic/Lymphatic: No symptoms reported Neurological/Psychological: No symptoms reported <PRISCILLA HAMILTON - Last Filed: 01/02/18 11:06> Physical Exam - Vital signs Interpretation: Normal - General General appearance: Appears well, Alert - HEENT Head: Normocephalic, Atraumatic Eyes: Normal Pupils: PERRL - Respiratory Respiratory status: No respiratory distress Chest status: Nontender Breath sounds: Normal Chest palpation: Normal - Cardiovascular Rhythm: Regular Heart sounds: Normal auscultation Murmur: No - Abdominal Inspection: Normal Distension: No distension Bowel sounds: Normal Tenderness: Nontender Organomegaly: No organomegaly - Back Back: Normal, Nontender - Extremities General upper extremity: Normal inspection, Nontender, Normal color, Normal ROM , Normal temperature General lower extremity: Normal inspection, Nontender, Normal color, Normal ROM , Normal temperature, Normal weight bearing. No: Elbert's sign - Neurological Neuro grossly intact: Yes Cognition: Normal Orientation: AAOx4 [place] Coma Scale Eye Opening: Spontaneous [place] Coma Scale Verbal: Oriented [place] Coma Scale Motor: Obeys Commands Yolie Coma Scale Total: 15 Speech: Normal Motor strength normal: LUE, RUE, LLE, RLE Sensory: Normal - Psychological Associated symptoms: Normal affect, Normal mood - Skin Skin Temperature: Warm Skin Moisture: Dry Skin Color: Normal <PRISCILLA HAMILTON - Last Filed: 01/02/18 11:06> - Vital signs Vitals: Resp 16 01/02/18 07:50 Course <LINA JOSE - Last Filed: 01/02/18 10:52> <PRISCILLA HAMILTON - Last Filed: 01/02/18 11:06> - Re-evaluation Re-evalutation: 01/02/18 11:01 Mental health is seen. At this time patient is well-known to the emergency department. She likely needs a change of her medications so consult was requested with mental health. Currently we are going to place her on Zyprexa 2.5 mg in the morning and 5 mg in the evening. We are going to decrease her BuSpar to 10 mg twice a day. We are going to discontinue the Seroquel. We are looking into potential for guardianship with her as well as potential for assisted living. I think patient would thrive in assisted living as she really does seek attention. Mobile crisis team is aware of her situation. We are also coordinating a glucometer to be given to her so that she can check her blood sugar at home. At this time patient is stable for discharge. (PRISCILLA HAMILTON) - Vital Signs Vital signs: Temp Pulse Resp BP Pulse Ox 16 01/02/18 07:50 Discharge <LINA JOSE - Last Filed: 01/02/18 10:52> <PRISCILLA HAMILTON - Last Filed: 01/02/18 11:06> - Discharge Clinical Impression: Schizoaffective disorder, bipolar type Condition: Good Disposition: HOME, SELF-CARE Additional Instructions: You were seen in the Emergency Department and evaluated by the Medical and Behavioral Health Teams for repeated visits as they relate to schizoaffective disorder, bipolar type, and determined your are appropriate for discharge. You are encouraged to utilize available community based resources such as [employer], your provider at [facility], and prescribing physician at [facility] for concerns regarding your anxiety and blood Sugar. You are encouraged to either purchase a glucometer or the community fishing vessel operator team will be contacted to inquire your eligibility for a free glucometer from the Program. You have been provided resources for [employer], [facility], and Medicaid and again are encouraged to review the information and follow through using them. Please return to the Emergency Department for medical emergencies only. Anxiety The physician feels that some of your health problems are being caused by anxiety. Anxiety affects your health in many ways. Anxiety alone can cause palpitations, sweats, chest pains, abdominal pains, shortness of breath, and headaches. It contributes to ulcer disease, high blood pressure, irritable bowel syndrome, and has been shown to cause flare-ups of many other diseases. Anxiety is not a simple disorder to treat. If the anxiety is due to recent life stresses, you may simply need time to "work through" the changes. If the anxiety is due to an underlying unhappiness with yourself or due to psychiatric disturbance, professional help will be needed. Your physician can refer you for further help if needed. Anti-anxiety medication is occasionally given if the stress is acute or if you are having trouble sleeping. Chronic or frequent use of these medications is not a good idea because the body becomes reliant on it, preventing you from dealing with life's normal stresses. Schizophrenia Schizophrenia is a chemical disorder that affects how the brain functions. The exact cause is unknown, but it tends to run in families. It is NOT caused by emotional trauma. Schizophrenia causes disordered thinking, including unusual beliefs and inability to "process" happenings around the patient. Patients with schizophrenia benefit greatly from medicine. These medicines are called antipsychotics. Never stop the medicine without the doctor 's approval. Counselling may help the patient deal with his disease. Schizophrenics require a very ordered environment. Stresses and sudden changes may bring out symptoms. Drugs and alcohol abuse may become problems. Contact the counsellor or crisis line if there are thoughts of suicide or of harming others, or if you become aware of unusual thoughts or beliefs Prescriptions: Buspirone HCl [Buspar 10 mg Tablet] 10 mg PO BID 7 Days #14 tablet Olanzapine [Zyprexa 2.5 Mg Tablet] 2.5 mg PO BID 7 Days #21 tablet Referrals: [facility] [Provider Group] - Follow up as needed RADHA LOFTON NP [Primary Care Provider] - Follow up as needed
[2018-01-02 11:11] VITALS: BP 124/77
== END 2018-01-02 11:28 | disposition home or self-care (01) ==
LOC: ER 06:46
DX: F25.0 Schizoaffective disorder, bipolar type (principal); F41.9 Anxiety disorder, unspecified; I10 Essential (primary) hypertension; J45.909 Unspecified asthma, uncomplicated; Z88.5 Allergy status to narcotic agent; Z79.899 Other long term (current) drug therapy
CPT/HCPCS: 82962; 99284

== ENCOUNTER 2018-01-08 16:02 | Emergency (ER) | payer SELFPAY ==
[2018-01-08 16:21] VITALS: BP 121/74
--- NOTE | 2018-01-08 17:33 | ER Document Report ---
HPI - HPI Patient complains to provider of: Pedal edema, states she needs blood pressure checked and needs insulin. Onset: Other Onset/Duration: Persistent Quality of pain: No pain Severity: None Pain Level: Denies Context: 52-year-old female states she was sent over here by her mental health doctor to have her blood pressure and her pedal edema checked out. Patient has been seen multiple times for swelling of both legs. Accu-Chek done and it was within normal limits. Associated Symptoms: Other - Pedal edema Exacerbated by: Denies Relieved by: Denies Similar symptoms previously: Yes Recently seen / treated by doctor: Yes - ROS ROS below otherwise negative: Yes - CONSTITUTIONAL Constitutional: DENIES: Fever, Chills - EENT EENT: DENIES: Sore Throat, Ear Pain, Nasal Drainage-Clear, Nasal Drainage- Purulent, Congestion, Eye problems - NEURO Neurology: DENIES: Headache, Weakness, Vision blurred, Dizzinesss / Vertigo - RESPIRATORY Respiratory: DENIES: Trouble Breathing, Coughing - GASTROINTESTINAL Gastrointestinal: DENIES: Abdominal Pain, Nausea, Patient vomiting, Diarrhea, Constipation, Black / Bloody Stools - URINARY Urinary: DENIES: Dysuria, Urgency, Frequency - REPRODUCTIVE Reproductive: DENIES: :, Postmenopausal, Abnormal bleeding / discharge - MUSCULOSKELETAL Musculoskeletal: REPORTS: Extremity pain, Swelling - Chronic - DERM Skin Color: Other - Bilateral peripheral vascular disease with 3+ edema that has been present chronic Skin Problems: None - Chronic pitting edema, chronic peripheral vascular disease Past Medical History - General Information source: Patient - Social History Smoking Status: Never Smoker Cigarette use (# per day): No Chew tobacco use (# tins/day): No Smoking Education Provided: No Frequency of alcohol use: None Drug Abuse: None Lives with: Family Family History: Arthritis, CAD, CVA, DM, Hyperlipidemia, Hypertension Patient has suicidal ideation: No Patient has homicidal ideation: No - Past Medical History Cardiac Medical History: Reports: Hx Hypertension, Hx Peripheral Vascular Disease Comment Only: Hx Heart Attack - ANGINA Pulmonary Medical History: Reports: Hx Asthma EENT Medical History: Reports: None Neurological Medical History: Reports: None Endocrine Medical History: Reports: None Renal/ Medical History: Reports: None Malignancy Medical History: Reports: None GI Medical History: Reports: Hx Gastroesophageal Reflux Disease Musculoskeletal Medical History: Reports Hx Arthritis Psychiatric Medical History: Reports: Hx Anxiety, Hx Depression Traumatic Medical History: Reports: None Infectious Medical History: Reports: None - Immunizations Immunizations up to date: No Hx Diphtheria, Pertussis, Tetanus Vaccination: Yes Hx Pneumococcal Vaccination: 06/11/00 Vertical Provider Document - CONSTITUTIONAL Agree With Documented VS: Yes Exam Limitations: No Limitations General Appearance: WD/WN, No Apparent Distress - INFECTION CONTROL TRAVEL OUTSIDE OF THE [place] IN LAST 30 DAYS: No - HEENT HEENT: Atraumatic, Normal ENT Exam, Normocephalic, PERRLA - NECK Neck: Normal Inspection, Supple - RESPIRATORY Respiratory: Breath Sounds Normal, No Respiratory Distress, Chest Non-Tender - CARDIOVASCULAR Cardiovascular: Regular Rate, Regular Rhythm - MUSCULOSKELETAL/EXTREMETIES Musculoskeletal/Extremeties: MAEW, FROM, Non-Tender, Edema - 3+ pitting edema bilateral ankles and feet this is chronic - NEURO Level of Consciousness: Awake Motor/Sensory: No Motor Deficit - DERM Integumentary: Warm, Dry, No Rash Course - Re-evaluation Re-evalutation: 01/08/18 18:17 Discussed x-ray with Dr. Armstrong and with the patient and her family. A written report of the x-ray given the patient. Accu-Chek was also discussed with Dr. Armstrong patient and the family. Patient was discharged home to follow-up with her primary doctor and to take her medications as prescribed and follow the diet she has been prescribed. Family stated she would try to encourage patient to follow diet and medications as prescribed. - Vital Signs Vital signs: Temp Pulse Resp BP Pulse Ox 98.4 F 90 16 121/74 100 01/08/18 16:18 01/08/18 16:18 01/08/18 16:18 01/08/18 16:18 01/08/18 16:18 - Diagnostic Test Radiology reviewed: Image reviewed, Reports reviewed Discharge - Discharge Clinical Impression: Pedal edema Condition: Stable Disposition: HOME, SELF-CARE Additional Instructions: Edema, Peripheral You have swelling in your legs. This is called peripheral edema. It can be caused by "leaky capillaries," inflammation, disease of the leg veins, or excess salt and water in your body. Edema may be a sign of heart, kidney, or liver disease. A medical evaluation can determine if there is a serious underlying cause for your edema. Avoid prolonged standing. If you must sit for a long time, occasionally get up and walk around or elevate your legs. Support stockings can be helpful in limiting swelling. Often diuretic or water pills are used to remove excess salt and water from your body. Call the doctor or return if you develop increased swelling, pain, or redness, shortness of breath, chest pain, or any other significant change. Take your medication as prescribed, please decrease the salt and sodium in your diet, please stop eating fast foods, smoked sausages, sodas, potato chips and snack food, and follow-up with your primary doctor as prescribed. FOLLOW-UP CARE: If you have been referred to a physician for follow-up care, call the physician s office for an appointment as you were instructed or within the next two days. If you experience worsening or a significant change in your symptoms, notify the physician immediately or return to the Emergency Department at any time for re-evaluation. Referrals: RADHA LOFTON NP [Primary Care Provider] - Follow up tomorrow
--- NOTE | 2018-01-08 17:58 | RADIOLOGY REPORT (SQ) ---
EXAM DESCRIPTION: CHEST 2 VIEWS COMPLETED DATE/TIME: 01/08/2018 5:41 pm REASON FOR STUDY: pedal edema COMPARISON: 12/01/2017 EXAM PARAMETERS: NUMBER OF VIEWS: two views TECHNIQUE: Digital Frontal and Lateral radiographic views of the chest acquired. RADIATION DOSE: NA LIMITATIONS: none FINDINGS: LUNGS AND PLEURA: No opacities, masses or pneumothorax. No pleural effusion. MEDIASTINUM AND HILAR STRUCTURES: No masses or contour abnormalities. HEART AND VASCULAR STRUCTURES: Heart normal size. No evidence for failure. BONES: No acute findings. HARDWARE: None in the chest. OTHER: No other significant finding. IMPRESSION: NO ACUTE RADIOGRAPHIC FINDING IN THE CHEST. TECHNICAL DOCUMENTATION: JOB ID: [id number] [employer]- All Rights Reserved Reading location - IP/workstation name: [email or web address]
== END 2018-01-08 18:21 | disposition home or self-care (01) ==
LOC: ER 16:02
DX: R60.9 Edema, unspecified (principal); I10 Essential (primary) hypertension
CPT/HCPCS: 71046; 82962; 99282

== ENCOUNTER 2018-01-12 20:53 | Emergency (ER) | payer SELFPAY ==
[2018-01-12 21:00] VITALS: BP 121/67
[2018-01-12] MEDS ORDERED: ASPIRIN 81 MG TABLET, CHEWABLE PO ONE (21:44)
[2018-01-12] MEDS ORDERED: QUETIAPINE FUMARATE 100 MG TABLET PO ONE (21:46)
--- NOTE | 2018-01-12 21:49 | ER Document Report ---
ED General - General Chief Complaint: Chest Pain Stated Complaint: BLOOD PRESSURE ISSUE Time Seen by Provider: 01/12/18 21:35 Notes: Patient is a 52-year-old female that comes emergency department for chief complaint of wanting to get her blood pressure checked, chest pain, and feeling short of breath. She states that she thinks that she needs "just 2 seconds or so of an albuterol treatment and that will clear the lungs", she states that that during the afternoon she had a 1 second of a sharp pain across her chest that went across the left side and then resolved, no pain since. She denies dizziness, nausea vomiting, fever or chills. Past medical history of hypertension, asthma, GERD, anxiety. Patient states she is also due for her Seroquel and asks to be given this at this time. TRAVEL OUTSIDE OF THE [place] IN LAST 30 DAYS: No - Related Data Allergies/Adverse Reactions: codeine [Codeine] Allergy (Unknown, Verified 12/28/17 14:43) Past Medical History - General Information source: Patient - Social History Smoking Status: Never Smoker Frequency of alcohol use: None Drug Abuse: None Lives with: Family Family History: Arthritis, CAD, CVA, DM, Hyperlipidemia, Hypertension - Past Medical History Cardiac Medical History: Reports: Hx Hypertension, Hx Peripheral Vascular Disease Comment Only: Hx Heart Attack - ANGINA Pulmonary Medical History: Reports: Hx Asthma Renal/ Medical History: Denies: Hx Peritoneal Dialysis GI Medical History: Reports: Hx Gastroesophageal Reflux Disease Musculoskeletal Medical History: Reports Hx Arthritis Psychiatric Medical History: Reports: Hx Anxiety, Hx Depression - Immunizations Immunizations up to date: No Hx Diphtheria, Pertussis, Tetanus Vaccination: Yes Hx Pneumococcal Vaccination: 06/11/00 Review of Systems - Review of Systems Constitutional: No symptoms reported EENT: No symptoms reported Cardiovascular: See HPI Respiratory: See HPI Gastrointestinal: No symptoms reported Genitourinary: No symptoms reported Female Genitourinary: No symptoms reported Musculoskeletal: No symptoms reported Skin: No symptoms reported Hematologic/Lymphatic: No symptoms reported Neurological/Psychological: No symptoms reported Physical Exam - Vital signs Vitals: Temp Pulse Resp BP Pulse Ox 98.6 F 87 20 121/67 97 01/12/18 20:58 01/12/18 20:58 01/12/18 20:58 01/12/18 20:58 08/04/18 20:58 - Notes Notes: GENERAL: Alert, interacts well. No acute distress. HEAD: Normocephalic, atraumatic. EYES: Pupils equal, round, and reactive to light. Extraocular movements intact. ENT: Oral mucosa moist, tongue midline. [Nares patent, no nasal septal hematoma , TM's intact.] NECK: Full range of motion. Supple. Trachea midline. LUNGS: Clear to auscultation bilaterally, no wheezes, rales, or rhonchi. No respiratory distress. HEART: Regular rate and rhythm. No murmur ABDOMEN: Soft, non-tender. Non-distended. Bowel sounds present in all 4 quadrants. EXTREMITIES: Moves all 4 extremities spontaneously. No edema, normal radial and dorsalis pedis pulses bilaterally. No cyanosis. BACK: no cervical, thoracic, lumbar midline tenderness. No saddle anesthesia, normal distal neurovascular exam. NEUROLOGICAL: Alert and oriented x3. Normal speech. [cranial nerves II through XII grossly intact]. PSYCH: Patient asks very many questions but does not appear to be severely anxious SKIN: Warm, dry, normal turgor. No rashes or lesions noted. Course - Re-evaluation Re-evalutation: EKG sinus rhythm at a rate of 96, no T-wave inversions or ST segment changes in consecutive leads, normal axis, no significant change compared to prior. Patient is extremely well-appearing. Oxygen saturation is 99% on room air, no tachypnea, clear lungs, no signs of distress. Blood pressure was checked and is normal at 120s systolic. CBC, chemistry unremarkable. Potassium borderline low but patient declined potassium supplement tonight. 2 sets of negative troponins. Very atypical nonspecific symptoms. Patient extremely well-appearing, ambulating around, asks a lot of questions. Discussed workup in detail. Patient satisfied with this, states she is ready to go home. Answered questions to the best of my ability. Patient is at this emergency department very often for similar complaints. Low suspicion of ACS or emergent intrathoracic etiology based on her evaluation and workup along with her atypical symptoms. Discharged with return precautions and follow-up instructions. Patient states understanding and agreement. - Vital Signs Vital signs: Temp Pulse Resp BP Pulse Ox 98.6 F 87 20 121/67 97 01/12/18 20:58 01/12/18 20:58 01/12/18 20:58 01/12/18 20:58 01/12/18 20:58 - Laboratory Result Diagrams: 01/12/18 22:22 01/12/18 22:22 Laboratory results interpreted by me: 01/12/18 01/12/18 22:22 22:22 Hgb 11.8 L Hct 35.5 L MCV 79 L MCH 26.2 L RDW 16.3 H Potassium 3.5 L Carbon Dioxide 31 H Est GFR (Non-Af Amer) 58 L Calcium 10.3 H Total Protein 8.6 H Discharge - Discharge Clinical Impression: Body aches, Shortness of breath, Anxiety Condition: Stable Disposition: HOME, SELF-CARE Additional Instructions: Your evaluation and workup today did not show any concerning findings. Continue current medications, follow-up with your primary provider. Return for any concerning worsening symptoms including chest pain, difficulty breathing, fever, passing out, vomiting, or any other concerning or worsening symptoms. Referrals: RADHA LOFTON, CLINICAL PROJECT MANAGER [Primary Care Provider] - Follow up tomorrow
--- NOTE | 2018-01-12 22:13 | RADIOLOGY REPORT (SQ) ---
EXAM DESCRIPTION: CHEST SINGLE VIEW COMPLETED DATE/TIME: 01/12/2018 10:01 pm REASON FOR STUDY: chest pain COMPARISON: Two-view chest 01/08/2018 EXAM PARAMETERS: NUMBER OF VIEWS: One view. TECHNIQUE: Single frontal radiographic view of the chest acquired. RADIATION DOSE: NA LIMITATIONS: None. FINDINGS: LUNGS AND PLEURA: No opacities, masses or pneumothorax. No pleural effusion. MEDIASTINUM AND HILAR STRUCTURES: No masses. Contour normal. HEART AND VASCULAR STRUCTURES: Stable mild cardiomegaly BONES: No acute findings. HARDWARE: None in the chest. OTHER: No other significant finding. IMPRESSION: NO ACUTE RADIOGRAPHIC FINDING IN THE CHEST. TECHNICAL DOCUMENTATION: JOB ID: [id number] [employer]- All Rights Reserved Reading location - IP/workstation name: [email or web address]
[2018-01-12 23:10] LABS: ABSOLUTE BASOPHILS # (AUTO) 0.1 10^3/uL (0.0-0.2); ABSOLUTE EOSINOPHILS # (AUTO) 0.3 10^3/uL (0.0-0.6); ABSOLUTE LYMPHOCYTES (AUTO) 2.2 10^3/uL (0.5-4.7); ABSOLUTE MONOCYTES (AUTO) 0.5 10^3/uL (0.1-1.4); ABSOLUTE NEUT (AUTO) 3.4 10^3/uL (1.7-8.2); ALANINE AMINOTRANSFERASE 40 U/L (9-52); ALBUMIN 4.6 g/dL (3.5-5.0); ALKALINE PHOSPHATASE 105 U/L (38-126); ANION GAP 13 (5-19); ASPARTATE AMINO TRANSFERASE 19 U/L (14-36); BILIRUBIN,DIRECT 0.2 mg/dL (0.0-0.4); BILIRUBIN,TOTAL 0.4 mg/dL (0.2-1.3); BLOOD UREA NITROGEN 13 mg/dL (7-20); CALCIUM 10.3 mg/dL (8.4-10.2); CARBON DIOXIDE 31 mmol/L (22-30); CHLORIDE 98 mmol/L (98-107); CREATINE KINASE 78 U/L (30-135); EOSINOPHILS % (AUTO) 4.5 % (0-6); GLUCOSE 89 mg/dL (75-110); HEMATOCRIT 35.5 % (36.0-47.0); HEMOGLOBIN 11.8 g/dL (12.0-15.5); LYMPHOCYTES % (AUTO) 33.6 % (13-45); MEAN CORPUSCULAR HEMOGLOBIN 26.2 pg (27.0-33.4); MEAN CORPUSCULAR HGB CONC 33.3 g/dL (32.0-36.0); MEAN CORPUSCULAR VOLUME 79 fl (80-97); MONOCYTES % (AUTO) 8.5 % (3-13); PLATELET COUNT 295 10^3/uL (150-450); POTASSIUM 3.5 mmol/L (3.6-5.0); RED BLOOD COUNT 4.51 10^6/uL (3.72-5.28); RED CELL DISTRIBUTION WIDTH 16.3 % (11.5-14.0); SEGMENTED NEUTROPHILS % (AUTO) 52.4 % (42-78); SODIUM 142.2 mmol/L (137-145); TOTAL CELLS COUNTED % (AUTO) 100 %; TOTAL PROTEIN 8.6 g/dL (6.3-8.2); WHITE BLOOD COUNT 6.5 10^3/uL (4.0-10.5)
[2018-01-12 23:24] LABS: CREATINE KINASE MB < 0.22 ng/mL (<4.55); TROPONIN I < 0.012 ng/mL
--- NOTE | 2018-01-13 09:51 | EKG REPORT ---
SEVERITY:- NORMAL ECG - SINUS RHYTHM : Confirmed by: Duke Arias 13-Jan-2018 09:51:20
== END 2018-01-13 01:46 | disposition home or self-care (01) ==
LOC: ER 20:53
DX: R07.9 Chest pain, unspecified (principal); F41.9 Anxiety disorder, unspecified; J45.909 Unspecified asthma, uncomplicated; R06.02 Shortness of breath; I10 Essential (primary) hypertension; F32.9 Major depressive disorder, single episode, unspecified; Z79.899 Other long term (current) drug therapy; Z82.49 Family history of ischemic heart disease and other diseases of the circulatory system
CPT/HCPCS: 36415; 71045; 80053; 82550; 82553; 84484; 85025; 93005; 93010; 99285

== ENCOUNTER 2018-01-16 07:34 | Emergency (ER) | payer SELFPAY ==
--- NOTE | 2018-01-16 08:03 | ER Document Report ---
HPI - HPI Pain Level: 3 Notes: Patient is a 52-year-old female who is well-known to the emergency department with a past medical history significant for hypertension, asthma, GERD, anxiety who presents to the ED requesting a refill of her Lasix 20 mg daily. Patient states that she had a brief episode of dizziness (a few seconds) with wheezing this morning. Patient states that she usually has the symptoms when her asthma starts flaring up. Patient states that she took 1 of her albuterol treatments and had complete resolution of her symptoms. Patient states that she does wants her blood pressure checked and refill of her Lasix. She otherwise feels "great." She has been eating and drinking without any difficulties. She is urinating normally and having normal bowel movements. Patient was evaluated a few days ago and had negative workup performed at that time. Denies any headache, fever, head injury, neck pain, changes in vision/speech/mentation/ hearing, URI, sore throat, chest pain, palpitations, syncope, cough, shortness of breath, wheeze, dyspnea, abdominal pain, nausea/vomiting/diarrhea, urinary retention, dysuria, hematuria, loss of control of bowel or bladder, numbness/ tingling, muscle paralysis/weakness, or rash. - ROS Systems Reviewed and Negative: Yes All other systems reviewed and negative - NEURO Neurology: REPORTS: Dizzinesss / Vertigo - RESPIRATORY Respiratory: REPORTS: Trouble Breathing - REPRODUCTIVE Reproductive: DENIES: : Past Medical History - Social History Smoking Status: Current Every Day Smoker Chew tobacco use (# tins/day): No Frequency of alcohol use: None Drug Abuse: None Family History: Arthritis, CAD, CVA, DM, Hyperlipidemia, Hypertension Patient has suicidal ideation: No Patient has homicidal ideation: No - Past Medical History Cardiac Medical History: Reports: Hx Hypertension, Hx Peripheral Vascular Disease Comment Only: Hx Heart Attack - ANGINA Pulmonary Medical History: Reports: Hx Asthma Renal/ Medical History: Denies: Hx Peritoneal Dialysis GI Medical History: Reports: Hx Gastroesophageal Reflux Disease Musculoskeletal Medical History: Reports Hx Arthritis Psychiatric Medical History: Reports: Hx Anxiety, Hx Depression - Immunizations Immunizations up to date: No Hx Diphtheria, Pertussis, Tetanus Vaccination: Yes Hx Pneumococcal Vaccination: 06/11/00 Vertical Provider Document - CONSTITUTIONAL Agree With Documented VS: No - HR 90 during exam Notes: PHYSICAL EXAMINATION: GENERAL: Well-appearing, well-nourished and in no acute distress. A&Ox4. Answers questions appropriately. Speaks in complete sentences. HEAD: Atraumatic, normocephalic. EYES: Pupils equal round and reactive to light, extraocular movements intact, sclera anicteric, conjunctiva are normal. ENT: Nares patent and without discharge. oropharynx clear without exudates. No tonsilar hypertrophy or erythema. Moist mucous membranes. NECK: Normal range of motion, supple without lymphadenopathy LUNGS: Breath sounds clear to auscultation bilaterally and equal. No wheezes rales or rhonchi. HEART: Regular rate and rhythm without murmurs, rubs, gallops. ABDOMEN: Soft, nontender, nondistended abdomen. No guarding, no rebound. No masses appreciated. Normal bowel sounds present. No CVA tenderness bilaterally. Musculoskeletal: FROM to passive/active. Strength 5+/5. Elbert neg. No asymmetry to LE's. Extremities: 2+ pitting edema b/l. Peripheral pulses 2+. Capillary refill less than 3 seconds. NEUROLOGICAL: Cranial nerves intact. Normal speech, normal gait. PSYCH: Normal mood, normal affect. SKIN: Warm, Dry, normal turgor, no rashes or lesions noted. - INFECTION CONTROL TRAVEL OUTSIDE OF THE [place] IN LAST 30 DAYS: No Course - Re-evaluation Re-evalutation: 01/16/18 08:08 Patient is an afebrile, well-hydrated, 52-year-old female who presents to the ED for medication refill her Lasix. Vitals are acceptable without any significant tachycardia, tachypnea, or hypoxia. PE is otherwise unremarkable. Patient is nontoxic-appearing and swelling p.o. without difficulties. Patient is otherwise completely asymptomatic and has been since taking a breathing treatment this morning. Patient states that she would like to go home. Low suspicion for any sepsis, meningitis, severe dehydration, respiratory compromise , or other systemic emergent condition at this time. Patient is aware that condition can change from initial presentation and she needs to monitor symptoms closely and seek medical attention with any acute changes. Conservative measures for symptoms. Recheck with your PCM in 3-5 days. Return to the ED with any worsening/concerning symptoms otherwise as reviewed in discharge. Patient is in agreement. - Vital Signs Vital signs: Temp Pulse Resp BP Pulse Ox 98.3 F 107 H 130/75 H 99 08/08/18 07:45 01/16/18 07:45 01/16/18 07:45 01/16/18 07:45 Discharge - Discharge Clinical Impression: Medication refill Condition: Stable Disposition: HOME, SELF-CARE Additional Instructions: Maintain adequate fluid and food intake Take home medications as directed Low sodium/fat diet Exercise regularly Weight control Monitor blood pressure daily and keep a log Monitor symptoms for any acute changes Recheck with your PCM in 3-5 days Consider a follow-up with cardiology Return to the ED with any worsening symptoms and/or development of fever, headache, chest pain, palpitations, syncope, shortness of breath, trouble breathing, abdominal pain, n/v/d, blood in stool/urine, loss of control of bowel /bladder, urinary retention, muscle weakness/paralysis, numbness/tingling, or other worsening symptoms that are concerning to you. Prescriptions: Furosemide [Lasix 20 mg Tablet] 20 mg PO DAILY #15 tablet Forms: Elevated Blood Pressure Referrals: RADHA LOFTON NP [Primary Care Provider] - Follow up in 3-5 days
[2018-01-16 08:20] VITALS: BP 117/70
== END 2018-01-16 08:20 | disposition home or self-care (01) ==
LOC: ER 07:34
DX: Z76.0 Encounter for issue of repeat prescription (principal); R60.0 Localized edema; I10 Essential (primary) hypertension; J45.909 Unspecified asthma, uncomplicated; R42 Dizziness and giddiness; F17.200 Nicotine dependence, unspecified, uncomplicated
CPT/HCPCS: 99283

== ENCOUNTER 2018-01-19 07:09 | Emergency (ER) | payer MEDICAID ==
--- NOTE | 2018-01-19 07:58 | ER Document Report ---
ED General - General Chief Complaint: Blood Pressure Problem Stated Complaint: BLOOD PRESSURE ISSUES Time Seen by Provider: 01/19/18 07:32 TRAVEL OUTSIDE OF THE [place] IN LAST 30 DAYS: No - Related Data Allergies/Adverse Reactions: codeine [Codeine] Allergy (Unknown, Verified 01/16/18 07:36) Past Medical History - Social History Smoking Status: Unknown if Ever Smoked Family History: Arthritis, CAD, CVA, DM, Hyperlipidemia, Hypertension Patient has suicidal ideation: No Patient has homicidal ideation: No - Past Medical History Cardiac Medical History: Reports: Hx Hypertension, Hx Peripheral Vascular Disease Comment Only: Hx Heart Attack - ANGINA Pulmonary Medical History: Reports: Hx Asthma Renal/ Medical History: Denies: Hx Peritoneal Dialysis GI Medical History: Reports: Hx Gastroesophageal Reflux Disease Musculoskeletal Medical History: Reports Hx Arthritis Psychiatric Medical History: Reports: Hx Anxiety, Hx Depression - Immunizations Immunizations up to date: No Hx Diphtheria, Pertussis, Tetanus Vaccination: Yes Hx Pneumococcal Vaccination: 06/11/00 Physical Exam - Vital signs Vitals: Temp Pulse Resp BP Pulse Ox 99.2 F 91 18 136/79 H 99 01/19/18 07:16 01/19/18 07:16 01/19/18 07:16 01/19/18 07:16 01/19/18 07:16 Course - Vital Signs Vital signs: Temp Pulse Resp BP Pulse Ox 99.2 F 91 18 136/79 H 99 01/19/18 07:16 01/19/18 07:16 01/19/18 07:16 01/19/18 07:16 01/19/18 07:16 Discharge - Discharge Clinical Impression: No problem, feared complaint unfounded, elevated blood pressure Additional Instructions: Your blood pressure reading today is 136/79. This blood pressure is not concerning. Please continue to take your blood pressure medications as prescribed. If you experience headache, blurred vision, slurred speech, difficulty with walking please return immediately to the emergency room. Prescriptions: Furosemide [Lasix 20 mg Tablet] 20 mg PO DAILY #7 tablet Forms: Elevated Blood Pressure Referrals: RADHA LOFTON, ENAMELER [Primary Care Provider] - Follow up in 3-5 days
--- NOTE | 2018-01-19 08:03 | ER Document Report ---
ED General - General Chief Complaint: Blood Pressure Problem Stated Complaint: BLOOD PRESSURE ISSUES Time Seen by Provider: 01/19/18 07:32 Mode of Arrival: Ambulatory Information source: Patient, [facility] Records Notes: 52-year-old female with hypertension, hypothyroidism, peripheral vascular disease, coronary artery disease, depression presents with concern for elevated blood pressure. Patient is well-known to the department and has been seen over a dozen times in the last 2 months for medication refill and elevated blood pressure. Patient states that she takes Lasix 20 mg daily for her blood pressure. Patient had a brief episode of dizziness that has resolved on its own and has not recurred. She denies any headache, blurred vision, nausea, vomiting, slurred speech, chest pain, shortness of breath. She does have a primary care physician and states she will follow-up with him. She denies any recent illness. TRAVEL OUTSIDE OF THE [place] IN LAST 30 DAYS: No - HPI Onset: This morning Onset/Duration: Sudden, Gone Quality of pain: No pain Severity: None Associated symptoms: denies: Body/muscle aches, Chest pain, Nonproductive cough , Productive cough, Fever, Headache, Leg swelling, Nausea, Shortness of breath Exacerbated by: Denies Relieved by: Denies Similar symptoms previously: Yes Recently seen / treated by doctor: Yes - 01/16/2018 [facility] - Related Data Allergies/Adverse Reactions: codeine [Codeine] Allergy (Unknown, Verified 01/16/18 07:36) Past Medical History - General Information source: Patient, [facility] Records - Social History Smoking Status: Never Smoker Frequency of alcohol use: None Drug Abuse: None Lives with: Alone Family History: Arthritis, CAD, CVA, DM, Hyperlipidemia, Hypertension Patient has suicidal ideation: No Patient has homicidal ideation: No - Past Medical History Cardiac Medical History: Reports: Hx Hypertension, Hx Peripheral Vascular Disease Comment Only: Hx Heart Attack - ANGINA Pulmonary Medical History: Reports: Hx Asthma Renal/ Medical History: Denies: Hx Peritoneal Dialysis GI Medical History: Reports: Hx Gastroesophageal Reflux Disease Musculoskeletal Medical History: Reports Hx Arthritis Psychiatric Medical History: Reports: Hx Anxiety, Hx Depression - Immunizations Immunizations up to date: No Hx Diphtheria, Pertussis, Tetanus Vaccination: Yes Hx Pneumococcal Vaccination: 06/11/00 Review of Systems - Review of Systems Notes: REVIEW OF SYSTEMS: CONSTITUTIONAL : Denies fever, chills, or sweats. Denies recent illness. Denies weight loss, recent hospitalizations. EENT: Denies visual changes, eye pain. Denies nasal or sinus congestion or discharge. Denies sore throat, oral lesions, difficulty swallowing. CARDIOVASCULAR: Denies chest pain. Denies palpitations. Denies lower extremity edema. RESPIRATORY: Denies cough, cold, or chest congestion. Denies shortness of breath, wheezing. GASTROINTESTINAL: Denies abdominal pain or distention. Denies nausea, vomiting , or diarrhea. Denies blood in vomitus, stools, or per rectum. Denies black, tarry stools. Denies constipation. GENITOURINARY: Denies difficulty urinating, painful urination, frequency, blood in urine, or vaginal discharge. MUSCULOSKELETAL: Denies back or neck pain or stiffness. Denies joint pain or swelling. SKIN: Denies rash, lesions or sores. HEMATOLOGIC : Denies easy bruising or bleeding. LYMPHATIC: Denies swollen glands. NEUROLOGICAL: Denies confusion or altered mental status. Denies passing out or loss of consciousness. Denies dizziness or lightheadedness. Denies headache. Denies weakness or paralysis. Denies problems difficulty with ambulation, slurred speech. Denies sensory loss, numbness, or tingling. Denies seizures. PSYCHIATRIC: Denies anxiety or stress. Denies depression, suicidal ideation, or homicidal ideation. Denies visual or auditory hallucinations. PHYSICAL EXAMINATION: GENERAL: Well-appearing, well-nourished and in no acute distress. HEAD: Atraumatic, normocephalic. EYES: Pupils equal round and reactive to light, extraocular movements intact, conjunctiva are normal. ENT: Nares patent, oropharynx clear without exudates. Moist mucous membranes. NECK: Normal range of motion, supple without lymphadenopathy LUNGS: Breath sounds clear to auscultation bilaterally and equal. No wheezes rales or rhonchi. HEART: Regular rate and rhythm without murmurs ABDOMEN: Soft, nontender, nondistended abdomen. No guarding, no rebound. No masses appreciated. Female : deferred Musculoskeletal: Normal range of motion, no pitting or edema. No cyanosis. NEUROLOGICAL: Cranial nerves grossly intact. Normal speech, normal gait. Normal sensory, motor exams. PSYCH: Normal mood, normal affect. SKIN: Warm, Dry, normal turgor, no rashes or lesions noted. Physical Exam - Vital signs Vitals: Temp Pulse Resp BP Pulse Ox 99.2 F 91 18 136/79 H 99 01/19/18 07:16 01/19/18 07:16 01/19/18 07:16 01/19/18 07:16 01/19/18 07:16 Interpretation: Hypertensive. No: Tachycardic, Hypoxic, Febrile Course - Re-evaluation Re-evalutation: 01/19/18 08:10 52-year-old female with hypertension presents with concern for elevated blood pressure. Patient states she had a brief episode of lightheadedness which made her concerned. This lightheadedness self resolved and has not recurred. Patient does not appear toxic or dehydrated. She has a normal neurologic and physical exam. Current blood pressure is 132/79. She is asking for a refill on her Lasix. I have provided one weeks worth and encouraged her to please follow-up with her primary care physician for further medication refills. At this point patient's history and exam are not consistent with hypertensive urgency, emergency or encephalopathy. Patient provided the opportunity to ask questions, and express concerns. Discharge instructions discussed. Patient is agreeable with discharge home. Return indications explained and discussed with the patient who displays understanding. Patient encouraged to return to the emergency department immediately with any concerns. - Vital Signs Vital signs: Temp Pulse Resp BP Pulse Ox 99.2 F 91 18 136/79 H 99 01/19/18 07:16 01/19/18 07:16 01/19/18 07:16 01/19/18 07:16 01/19/18 07:16 Discharge - Discharge Clinical Impression: No problem, feared complaint unfounded, elevated blood pressure, Anxiety, Medication refill Condition: Good Instructions: High Blood Pressure ([facility]) Additional Instructions: Your blood pressure reading today is 136/79. This blood pressure is not concerning. Please continue to take your blood pressure medications as prescribed. If you experience headache, blurred vision, slurred speech, difficulty with walking please return immediately to the emergency room. Prescriptions: Furosemide [Lasix 20 mg Tablet] 20 mg PO DAILY #7 tablet Forms: Elevated Blood Pressure Referrals: RADHA LOFTON, SILO PAINTER [Primary Care Provider] - Follow up in 3-5 days
[2018-01-19 08:23] VITALS: BP 119/84
== END 2018-01-19 08:16 | disposition home or self-care (01) ==
LOC: ER 07:09
DX: Z71.1 Person with feared health complaint in whom no diagnosis is made (principal); I10 Essential (primary) hypertension; F41.9 Anxiety disorder, unspecified; Z88.6 Allergy status to analgesic agent
CPT/HCPCS: 99283

== ENCOUNTER 2018-01-27 10:54 | Emergency (ER) | payer MEDICAID, OTHER ==
[2018-01-27] MEDS ORDERED: ACETAMINOPHEN 325 MG TABLET PO ONE (12:24)
--- NOTE | 2018-01-27 12:28 | ER Document Report ---
HPI - HPI Patient complains to provider of: Body aches, blood pressure check Onset: Yesterday Onset/Duration: Gradual Quality of pain: Achy Pain Level: 3 Context: Patient presents complaining of generalized body aches that started last night. Patient also states that she had some dizziness earlier and is concerned that her blood pressure may be up. Patient does not have a blood pressure cuff at home and would like to have her blood pressure checked here today. Associated Symptoms: Other - Generalized body aches Exacerbated by: Denies Relieved by: Denies Similar symptoms previously: Yes Recently seen / treated by doctor: No - ROS ROS below otherwise negative: Yes Systems Reviewed and Negative: Yes All other systems reviewed and negative - CONSTITUTIONAL Constitutional: DENIES: Fever - NEURO Neurology: DENIES: Headache, Weakness - RESPIRATORY Respiratory: DENIES: Coughing - GASTROINTESTINAL Gastrointestinal: DENIES: Nausea, Patient vomiting - REPRODUCTIVE Reproductive: DENIES: : - MUSCULOSKELETAL Notes: Generalized body aches - DERM Skin Color: Normal Skin Problems: None Past Medical History - General Information source: Patient - Social History Smoking Status: Never Smoker Frequency of alcohol use: None Drug Abuse: None Occupation: None Family History: Arthritis, CAD, CVA, DM, Hyperlipidemia, Hypertension - Past Medical History Cardiac Medical History: Reports: Hx Hypertension, Hx Peripheral Vascular Disease Comment Only: Hx Heart Attack - ANGINA Pulmonary Medical History: Reports: Hx Asthma Renal/ Medical History: Denies: Hx Peritoneal Dialysis GI Medical History: Reports: Hx Gastroesophageal Reflux Disease Musculoskeletal Medical History: Reports Hx Arthritis Psychiatric Medical History: Reports: Hx Anxiety, Hx Depression Surgical Hx: Negative - Immunizations Immunizations up to date: No Hx Diphtheria, Pertussis, Tetanus Vaccination: Yes Hx Pneumococcal Vaccination: 06/11/00 Vertical Provider Document - CONSTITUTIONAL Agree With Documented VS: Yes Exam Limitations: No Limitations General Appearance: WD/WN, No Apparent Distress - INFECTION CONTROL TRAVEL OUTSIDE OF THE [place] IN LAST 30 DAYS: No - HEENT HEENT: Atraumatic, Normal ENT Exam, Normocephalic - NECK Neck: Normal Inspection, Supple. negative: Lymphadenopathy-Left, Lymphadenopathy-Right - RESPIRATORY Respiratory: Breath Sounds Normal, No Respiratory Distress, Chest Non-Tender - CARDIOVASCULAR Cardiovascular: Regular Rate, Regular Rhythm, No Murmur - BACK Back: Normal Inspection - MUSCULOSKELETAL/EXTREMETIES Musculoskeletal/Extremeties: MAEW, Edema - 2+ edema to bilat lower extremities - NEURO Level of Consciousness: Awake, Alert, Appropriate Motor/Sensory: No Motor Deficit - DERM Integumentary: Warm, Dry, No Rash Course - Re-evaluation Re-evalutation: 01/27/18 12:25 Patient presents with a complaint of generalized body aches as well as concerns about her blood pressure. Patient's blood pressure today was 128/75. Patient states she has been compliant with her antihypertensive medications. Patient states she does not have a cuff at home is unable to check her blood pressure at home. Patient states that she took some aspirin at home which helped her body aches. Patient's respirations even and unlabored. Patient denies any cough or cold symptoms. Patient without any fever, nausea or vomiting. Patient denies any recent illness. Patient does state she has a follow-up appointment with her primary doctor in 1 week. Patient denies any recent changes in her medications. Patient is well-known to this emergency department for frequent visits for generalized body aches. Patient is nontoxic in appearance and appears stable for discharge without any further testing at this time. - Vital Signs Vital signs: Temp Pulse Resp BP Pulse Ox 99.2 F 76 16 128/75 H 98 01/27/18 10:57 01/27/18 10:57 01/27/18 10:57 01/27/18 10:57 01/27/18 10:57 Discharge - Discharge Clinical Impression: Body aches, concern about blood pressure Condition: Stable Disposition: HOME, SELF-CARE Instructions: Acetaminophen, Myalagia (Muscle Pain) ([facility]) Additional Instructions: Return immediately for any new or worsening symptoms Followup with your primary care provider, call tomorrow to make a followup appointment You can purchase a blood pressure cuff [id number] so that you can check your blood pressure at home and keep a log for your primary doctor. Referrals: RADHA LOFTON NP [Primary Care Provider] - Follow up as needed [facility] [Provider Group] - Follow up tomorrow
[2018-01-27 12:58] VITALS: BP 130/83
== END 2018-01-27 13:01 | disposition home or self-care (01) ==
LOC: ER 10:54
DX: M79.1 Myalgia (principal); I10 Essential (primary) hypertension
CPT/HCPCS: 99283; J3490

== ENCOUNTER 2018-02-05 08:45 | Emergency (ER) | payer MEDICAID ==
--- NOTE | 2018-02-05 09:10 | ER Document Report ---
HPI - HPI Patient complains to provider of: blood pressure check Onset: This morning Quality of pain: No pain Pain Level: Denies Context: 52-year-old female well-known to the emergency department is a patient of [facility] ([place], [place]) she is here this morning because she told her son to drop her off. She wanted her blood pressure checked and she is feeling some stress today, she is very vague about why she is here in it is unclear even with the nurse in the room as to why she came to the emergency department. She has no fever or chills. No chest pain or shortness of breath. No abdominal pain. No headache or weakness. She states that she thinks her blood pressure is high this morning she did not take it at home. She takes 20 or 30 mg of Lasix daily depending upon her blood pressure. She has not been taking the metoprolol. We spent some time going over her medication she does take Seroquel 3 times a day. She did state that she would go back to [facility] ([place], [place]) for her medical care and refills or her medications Associated Symptoms: None Exacerbated by: Denies Relieved by: Denies - ROS ROS below otherwise negative: Yes Systems Reviewed and Negative: Yes All other systems reviewed and negative - REPRODUCTIVE Reproductive: DENIES: : Past Medical History - General Information source: Patient - Social History Smoking Status: Never Smoker Lives with: Family Family History: Arthritis, CAD, CVA, DM, Hyperlipidemia, Hypertension - Past Medical History Cardiac Medical History: Reports: Hx Hypertension, Hx Peripheral Vascular Disease, Other - Peripheral edema Pulmonary Medical History: Reports: Hx Asthma Renal/ Medical History: Denies: Hx Peritoneal Dialysis GI Medical History: Reports: Hx Gastroesophageal Reflux Disease Musculoskeletal Medical History: Reports Hx Arthritis Psychiatric Medical History: Reports: Hx Anxiety, Hx Depression Surgical Hx: Negative - Immunizations Immunizations up to date: No Hx Diphtheria, Pertussis, Tetanus Vaccination: Yes Hx Pneumococcal Vaccination: 06/11/00 Vertical Provider Document - CONSTITUTIONAL Agree With Documented VS: Yes Exam Limitations: No Limitations - INFECTION CONTROL TRAVEL OUTSIDE OF THE [place] IN LAST 30 DAYS: No - HEENT HEENT: Normocephalic - NECK Neck: Supple - RESPIRATORY Respiratory: Breath Sounds Normal, No Respiratory Distress - CARDIOVASCULAR Cardiovascular: Regular Rate, Regular Rhythm - MUSCULOSKELETAL/EXTREMETIES Musculoskeletal/Extremeties: MAEW, Edema - Bilateral lower leg edema which has been progressing over the past several years - NEURO Level of Consciousness: Awake, Alert - DERM Integumentary: No Rash Course - Re-evaluation Re-evalutation: 02/05/18 09:27 We went over her medications I did ask her to please restart the metoprolol which will help with her blood pressure, she did not realize that she was supposed to be taking that she was confused about the hydrochlorothiazide which she no longer has, Lasix, and metoprolol. - Vital Signs Vital signs: Temp Pulse Resp BP Pulse Ox 99.3 F 88 16 152/86 H 97 02/05/18 08:49 02/05/18 08:49 02/05/18 08:49 02/05/18 08:49 02/05/18 08:49 Discharge - Discharge Clinical Impression: blood pressure check, Stress Condition: Good Disposition: HOME, SELF-CARE Instructions: High Blood Pressure ([facility]), Anxiety ([facility]) Additional Instructions: Start taking the metoprolol 25mg 1/2 twice a day as prescribed by your primary care doctor Continue the Lasix 20 mg daily Return to [facility] ([place], [place]) Return to the emergency room if you develop any concerns Referrals: RADHA LOFTON NP [Primary Care Provider] - Follow up as needed
[2018-02-05 09:29] VITALS: BP 150/70
== END 2018-02-05 09:39 | disposition home or self-care (01) ==
LOC: ER 08:45
DX: I10 Essential (primary) hypertension (principal); T44.7X6A Underdosing of beta-adrenoreceptor antagonists, initial encounter; Z91.138 Patient's unintentional underdosing of medication regimen for other reason; Z91.14 Patient's other noncompliance with medication regimen; F43.9 Reaction to severe stress, unspecified; J45.909 Unspecified asthma, uncomplicated; F32.9 Major depressive disorder, single episode, unspecified; Z79.899 Other long term (current) drug therapy; R60.0 Localized edema
CPT/HCPCS: 99283

== ENCOUNTER 2018-02-08 11:18 | Emergency (ER) | payer MEDICAID ==
--- NOTE | 2018-02-08 12:13 | ER Document Report ---
ED General - General Chief Complaint: Chest Pain Stated Complaint: CHEST PAIN Time Seen by Provider: 02/08/18 12:07 Mode of Arrival: Ambulatory Notes: Chief complaint: Blood pressure History of complain:( obtained from----patient) 52 years old female had total of 5 visits so far for this month to the ED, presents today saying she is not sure whether to take 2 Lasix or 1 to control her blood pressure. Otherwise has no constitutional symptoms. Chronic chest pain. Onset: As above Duration: Long-standing Severity: Unknown Quality: Unknown Context: Unknown Exacerbating factor and relieving factors: None REVIEW OF SYSTEMS: CONSTITUTIONAL : Denies fever, chills, or sweats. Denies recent illness. EENT: Denies eye, ear, throat, or mouth pain or symptoms. Denies nasal or sinus congestion or discharge. Denies throat, tongue, or mouth swelling or difficulty swallowing. CARDIOVASCULAR: Denies chest pain. Denies palpitations or racing or irregular heart beat. Denies ankle edema. RESPIRATORY: Denies cough, cold, or chest congestion. Denies shortness of breath, difficulty breathing, or wheezing. GASTROINTESTINAL: Denies distention. Denies nausea, vomiting, or diarrhea. Denies blood in vomitus, stools, or per rectum. Denies black, tarry stools. Denies constipation. GENITOURINARY: Denies difficulty urinating, painful urination, burning, frequency, blood in urine, or discharge. FEMALE GENITOURINARY: Denies vaginal bleeding, heavy or abnormal periods, irregular periods. Denies vaginal discharge or odor. MUSCULOSKELETAL: Denies back or neck pain or stiffness. Denies joint pain or swelling. SKIN: Denies rash, lesions or sores. HEMATOLOGIC : Denies easy bruising or bleeding. LYMPHATIC: Denies swollen, enlarged glands. NEUROLOGICAL: Denies confusion or altered mental status. Denies passing out or loss of consciousness. Denies dizziness or lightheadedness. Denies headache. Denies weakness or paralysis or loss of use of either side. Denies problems with gait or speech. Denies sensory loss, numbness, or tingling. Denies seizures. PSYCHIATRIC: anxiety or stress. Denies depression, suicidal ideation, or homicidal ideation. ALL OTHER SYSTEMS REVIEWED AND NEGATIVE. PHYSICAL EXAMINATION: GENERAL: Well-appearing, well-nourished and in no acute distress. HEAD: Atraumatic, normocephalic. EYES: Pupils equal round and reactive to light, extraocular movements intact, conjunctiva are normal. ENT: Nares patent, oropharynx clear without exudates. Moist mucous membranes. NECK: Normal range of motion, supple without lymphadenopathy LUNGS: Breath sounds clear to auscultation bilaterally and equal. No wheezes rales or rhonchi. HEART: Regular rate and rhythm without murmurs ABDOMEN: Soft, nontender, nondistended abdomen. No guarding, no rebound. No masses appreciated. Examination of genitals-deferred Musculoskeletal: Normal range of motion, no pitting or edema. No cyanosis. NEUROLOGICAL: Cranial nerves grossly intact. Normal speech, normal gait. Normal sensory, motor exams PSYCH: Normal mood, normal affect. Appears anxious SKIN: Warm, Dry, normal turgor, no rashes or lesions noted. Dictation was performed using [employer] voice recognition software TRAVEL OUTSIDE OF THE [place] IN LAST 30 DAYS: No - HPI Notes: Dictated - Related Data Allergies/Adverse Reactions: codeine [Codeine] Allergy (Unknown, Verified 02/05/18 08:47) Past Medical History - Social History Smoking Status: Never Smoker Chew tobacco use (# tins/day): No Frequency of alcohol use: None Drug Abuse: None Family History: Reviewed & Not Pertinent, Arthritis, CAD, CVA, DM, Hyperlipidemia, Hypertension Patient has suicidal ideation: No Patient has homicidal ideation: No - Past Medical History Cardiac Medical History: Reports: Hx Hypertension, Hx Peripheral Vascular Disease Comment Only: Hx Heart Attack - ANGINA Pulmonary Medical History: Reports: Hx Asthma Renal/ Medical History: Denies: Hx Peritoneal Dialysis GI Medical History: Reports: Hx Gastroesophageal Reflux Disease Musculoskeletal Medical History: Reports Hx Arthritis Psychiatric Medical History: Reports: Hx Anxiety, Hx Depression - Immunizations Immunizations up to date: No Hx Diphtheria, Pertussis, Tetanus Vaccination: Yes Hx Pneumococcal Vaccination: 06/11/00 Review of Systems - Review of Systems Notes: Dictated Physical Exam - Vital signs Vitals: Temp Pulse Resp BP Pulse Ox 98.8 F 98 18 143/62 H 99 02/08/18 11:22 02/08/18 11:22 02/08/18 11:22 02/08/18 11:22 02/08/18 11:22 - Notes Notes: Dictated Course - Vital Signs Vital signs: Temp Pulse Resp BP Pulse Ox 98.8 F 98 18 143/62 H 99 02/08/18 11:22 02/08/18 11:22 02/08/18 11:22 02/08/18 11:22 02/08/18 11:22 Discharge - Discharge Clinical Impression: High blood pressure Qualifiers: Hypertension type: essential hypertension Qualified Code(s): I10 - Essential ( primary) hypertension Condition: Fair Instructions: Chest Pain of Unclear Cause ([facility]), High Blood Pressure ([facility]) Referrals: RADHA LOFTON NP [Primary Care Provider] - Follow up as needed
[2018-02-08 12:39] VITALS: BP 117/84
--- NOTE | 2018-02-08 19:08 | EKG REPORT ---
SEVERITY:- ABNORMAL ECG - SINUS TACHYCARDIA NONSPECIFIC T ABNORMALITIES, ANT-LAT LEADS : Confirmed by: Nicholas Torres MD 08-Feb-2018 19:07:27
== END 2018-02-08 12:39 | disposition home or self-care (01) ==
LOC: ER 11:18
DX: R07.9 Chest pain, unspecified (principal); I10 Essential (primary) hypertension; Z79.899 Other long term (current) drug therapy; J45.909 Unspecified asthma, uncomplicated
CPT/HCPCS: 93005; 93010; 99285

== ENCOUNTER 2018-02-12 13:31 | Emergency (ER) | payer MEDICAID ==
[2018-02-12 14:06] VITALS: BP 130/72
== END 2018-02-12 15:38 | disposition left against medical advice (07) ==
LOC: ER 13:31
DX: Z53.21 Procedure and treatment not carried out due to patient leaving prior to being seen by health care provider (principal)

== ENCOUNTER 2018-02-15 09:33 | Emergency (ER) | payer MEDICAID ==
[2018-02-15 09:40] VITALS: BP 135/73
[2018-02-15] MEDS ORDERED: PREDNISOLONE SOD PHOS 15 MG/5 ML ORAL SYRING PO ONE (09:54)
[2018-02-15] MEDS ORDERED: ALBUTEROL SULFATE HFA (90 MCG/PUFF) 8 GM MDI (1 MDI/ER DISP) IH ONE (09:55)
--- NOTE | 2018-02-15 09:56 | ER Document Report ---
ED General - General Chief Complaint: Shortness Of Breath Stated Complaint: SHORTNESS OF BREATH Time Seen by Provider: 02/15/18 09:44 Mode of Arrival: Ambulatory Information source: Patient, [facility] Records Notes: 52-year-old female with hypertension, asthma, peripheral vascular disease presents with complaint of shortness of breath. Patient states that she was in her psychiatrist's office where they were "burning incense" when she became short of breath, started coughing. Upon arrival patient states that she is already feeling better. She is requesting a refill of her albuterol and Lasix. She denies any recent illness, chest pain, fever, chills. TRAVEL OUTSIDE OF THE [place] IN LAST 30 DAYS: No - HPI Onset: Just prior to arrival Onset/Duration: Sudden, Better Quality of pain: No pain Severity: None Associated symptoms: Shortness of breath. denies: Chest pain, Nausea, Vomiting Exacerbated by: Denies Relieved by: Denies Similar symptoms previously: Yes Recently seen / treated by doctor: No - Related Data Allergies/Adverse Reactions: codeine [Codeine] Allergy (Unknown, Verified 02/12/18 13:37) Past Medical History - General Information source: Patient, [facility] Records - Social History Smoking Status: Never Smoker Frequency of alcohol use: None Drug Abuse: None Lives with: Alone Family History: Reviewed & Not Pertinent, Arthritis, CAD, CVA, DM, Hyperlipidemia, Hypertension Patient has suicidal ideation: No Patient has homicidal ideation: No - Past Medical History Cardiac Medical History: Reports: Hx Hypertension, Hx Peripheral Vascular Disease Comment Only: Hx Heart Attack - ANGINA Pulmonary Medical History: Reports: Hx Asthma Renal/ Medical History: Denies: Hx Peritoneal Dialysis GI Medical History: Reports: Hx Gastroesophageal Reflux Disease Musculoskeletal Medical History: Reports Hx Arthritis Psychiatric Medical History: Reports: Hx Anxiety, Hx Depression - Immunizations Immunizations up to date: No Hx Diphtheria, Pertussis, Tetanus Vaccination: Yes Hx Pneumococcal Vaccination: 06/11/00 Review of Systems - Review of Systems Notes: REVIEW OF SYSTEMS: CONSTITUTIONAL : Denies fever, chills, or sweats. Denies recent illness. Denies weight loss, recent hospitalizations. EENT: Denies visual changes, eye pain. Denies sore throat, oral lesions, difficulty swallowing. CARDIOVASCULAR: Denies chest pain. Denies palpitations. Denies lower extremity edema. RESPIRATORY: +SOB-improved GASTROINTESTINAL: Denies abdominal pain or distention. Denies nausea, vomiting , or diarrhea. Denies blood in vomitus, stools, or per rectum. Denies black, tarry stools. Denies constipation. GENITOURINARY: Denies difficulty urinating, painful urination, frequency, blood in urine, MUSCULOSKELETAL: Denies back or neck pain or stiffness. Denies joint pain or swelling. SKIN: Denies rash, lesions or sores. HEMATOLOGIC : Denies easy bruising or bleeding. LYMPHATIC: Denies swollen glands. NEUROLOGICAL: Denies confusion or altered mental status. Denies loss of consciousness. Denies dizziness or lightheadedness. Denies headache. Denies weakness or paralysis. Denies problems difficulty with ambulation, slurred speech. Denies sensory loss, numbness, or tingling. Denies seizures. PSYCHIATRIC: Denies anxiety or stress. Denies depression, suicidal ideation, or homicidal ideation. Denies visual or auditory hallucinations. Physical Exam - Vital signs Vitals: Temp Pulse BP Pulse Ox 98.1 F 79 135/73 H 99 02/15/18 09:38 02/15/18 09:38 02/15/18 09:38 02/15/18 09:38 Interpretation: Hypertensive. No: Hypoxic, Febrile - Notes Notes: PHYSICAL EXAMINATION: GENERAL: Well-appearing, well-nourished and in no acute distress. HEAD: Atraumatic, normocephalic. EYES: Pupils equal round and reactive to light, extraocular movements intact, conjunctiva are normal. ENT: Nares patent, oropharynx clear without exudates. Moist mucous membranes. NECK: Normal range of motion, supple without lymphadenopathy LUNGS: Breath sounds clear to auscultation bilaterally and equal. Mild wheezing in the upper lung ortega. No accessory muscle use. No respiratory distress. Patient able to speak in full sentences. HEART: Regular rate and rhythm without murmurs ABDOMEN: Soft, nontender, nondistended abdomen. No guarding, no rebound. No masses appreciated. Female : deferred Musculoskeletal: Normal range of motion, no pitting or edema. No cyanosis. NEUROLOGICAL: Cranial nerves grossly intact. Normal speech, normal gait. Normal sensory, motor exams PSYCH: Normal mood, normal affect. SKIN: Warm, Dry, normal turgor, no rashes or lesions noted. Course - Re-evaluation Re-evalutation: 02/15/18 15:48 52-year-old female with history of asthma presents with complaint of shortness of breath after being exposed to burning and sense. Upon arrival she states that her shortness of breath is already better. She was offered breathing treatments but declines because she states that makes her heart race. She is requesting a refill of her an albuterol inhaler and her Lasix. Upon arrival vitals were reviewed and patient is afebrile, not hypoxic and in no respiratory distress. Patient was provided an albuterol inhaler in the department with a spacer. Upper prescription for prednisolone per the patient's request was given to her. She states that she only likes to take the oral form. I did provide her 20 mg of Lasix for the next 5 days after reviewing her home medications. I did tell her that any further prescriptions would need to come from her primary care physician. Patient provided the opportunity to ask questions, and express concerns. Discharge instructions discussed. Patient is agreeable with discharge home. Return indications explained and discussed with the patient who displays understanding. Patient encouraged to return to the emergency department immediately with any concerns. - Vital Signs Vital signs: Temp Pulse Resp BP Pulse Ox 98.1 F 79 135/73 H 99 02/15/18 09:38 02/15/18 09:38 02/15/18 09:38 02/15/18 09:38 Discharge - Discharge Clinical Impression: Elevated blood pressure reading, Cough, Medication refill Asthma exacerbation Qualifiers: Asthma severity: mild Asthma persistence: unspecified Qualified Code(s): J45.901 - Unspecified asthma with (acute) exacerbation Condition: Good Disposition: HOME, SELF-CARE Instructions: Asthma ([facility]) Additional Instructions: Follow up with your physician tomorrow for further care or return to the ED IMMEDIATELY if symptoms worsen or new concerns occur. If you cannot afford to follow up with your primary care physician a list of low cost clinics have been provided at the end of your discharge papers as well. Most prescribed medications have multiple side effects. The safest thing to do is when filling your prescription please speak to your pharmacist regarding possible interactions with your normal home medications and over the counter medications such as Ibuprofen, Tylenol, Benadryl.. If you experience any symptoms that cause you discomfort or concern you should discontinue the medication immediately and return to the emergency room or call your primary care physician. You were seen for an asthma exacerbation. Your symptoms improved without treatment here in the emergency department. However, it is very important that you return to the emergency department immediately if you began to have worsening difficulty breathing that does not respond to your normal home education. You are also being sent home on a five-day course of steroids that you should start taking tomorrow. Please also follow closely with your primary care physician. you should also return to emergency department if you develop fever greater than 101, persistent cough, persistent vomiting, pass out, or any other symptoms that are concerning to you. Prescriptions: Furosemide [Lasix 20 mg Tablet] 20 mg PO QAM #5 tablet Prednisolone 15 mg PO DAILY 5 Days #25 ml Forms: Elevated Blood Pressure Referrals: RADHA LOFTON NP [Primary Care Provider] - Follow up as needed
== END 2018-02-15 10:38 | disposition home or self-care (01) ==
LOC: ER 09:33
DX: Z76.0 Encounter for issue of repeat prescription (principal); J45.901 Unspecified asthma with (acute) exacerbation; R05 Cough; R06.02 Shortness of breath; I10 Essential (primary) hypertension; I73.9 Peripheral vascular disease, unspecified; Z79.899 Other long term (current) drug therapy
CPT/HCPCS: 99284; J7510; J3490

== ENCOUNTER 2018-02-28 09:36 | Emergency (ER) | payer MEDICAID ==
[2018-02-28 09:47] VITALS: BP 158/87
--- NOTE | 2018-02-28 10:00 | ER Document Report ---
ED Extremity Problem, Lower - General Chief Complaint: Pedal Edema Stated Complaint: FEET SWELLING Time Seen by Provider: 02/28/18 09:53 Mode of Arrival: Ambulatory Notes: Chief complaint: Ran out of medication History of complain:( obtained from----patient) 52 years old female with a history of hypertension and dependent edema is running out of Lasix therefore presented to the ED to be refill. Otherwise has no headache chest pain shortness of breath. Onset: Long-standing gradual Duration: Long-standing Severity: Mild Quality: Edema Context: Prescription refill Exacerbating factor and relieving factors: REVIEW OF SYSTEMS: CONSTITUTIONAL : Denies fever, chills, or sweats. Denies recent illness. EENT: Denies eye, ear, throat, or mouth pain or symptoms. Denies nasal or sinus congestion or discharge. Denies throat, tongue, or mouth swelling or difficulty swallowing. CARDIOVASCULAR: Denies chest pain. Denies palpitations or racing or irregular heart beat. Denies ankle edema. RESPIRATORY: Denies cough, cold, or chest congestion. Denies shortness of breath, difficulty breathing, or wheezing. GASTROINTESTINAL: Denies distention. Denies nausea, vomiting, or diarrhea. Denies blood in vomitus, stools, or per rectum. Denies black, tarry stools. Denies constipation. GENITOURINARY: Denies difficulty urinating, painful urination, burning, frequency, blood in urine, or discharge. FEMALE GENITOURINARY: Denies vaginal bleeding, heavy or abnormal periods, irregular periods. Denies vaginal discharge or odor. MUSCULOSKELETAL: Denies back or neck pain or stiffness. Denies joint pain or swelling. SKIN: Denies rash, lesions or sores. HEMATOLOGIC : Denies easy bruising or bleeding. LYMPHATIC: Denies swollen, enlarged glands. NEUROLOGICAL: Denies confusion or altered mental status. Denies passing out or loss of consciousness. Denies dizziness or lightheadedness. Denies headache. Denies weakness or paralysis or loss of use of either side. Denies problems with gait or speech. Denies sensory loss, numbness, or tingling. Denies seizures. PSYCHIATRIC: Denies anxiety or stress. Denies depression, suicidal ideation, or homicidal ideation. ALL OTHER SYSTEMS REVIEWED AND NEGATIVE. PHYSICAL EXAMINATION: GENERAL: Well-appearing, well-nourished and in no acute distress. Obesity HEAD: Atraumatic, normocephalic. EYES: Pupils equal round and reactive to light, extraocular movements intact, conjunctiva are normal. ENT: Nares patent, oropharynx clear without exudates. Moist mucous membranes. NECK: Normal range of motion, supple without lymphadenopathy LUNGS: Breath sounds clear to auscultation bilaterally and equal. No wheezes rales or rhonchi. HEART: Regular rate and rhythm without murmurs ABDOMEN: Soft, nontender, nondistended abdomen. No guarding, no rebound. No masses appreciated. Examination of genitals-deferred Musculoskeletal: Bilateral lower leg stasis dermatosis as well as ankle edema off 3+ noted. No cyanosis. NEUROLOGICAL: Cranial nerves grossly intact. Normal speech, normal gait. Normal sensory, motor exams PSYCH: Normal mood, normal affect. SKIN: Warm, Dry, normal turgor, no rashes or lesions noted. Dictation was performed using [employer] voice recognition software TRAVEL OUTSIDE OF THE [place] IN LAST 30 DAYS: No - HPI Notes: Dictated - Related Data Allergies/Adverse Reactions: codeine [Codeine] Allergy (Unknown, Verified 02/28/18 09:36) Past Medical History - General Information source: Patient, PO[facility] - [employer] of [employer] - Social History Smoking Status: Former Smoker Frequency of alcohol use: None Drug Abuse: None Lives with: Family Family History: Reviewed & Not Pertinent, Arthritis, CAD, CVA, DM, Hyperlipidemia, Hypertension - Past Medical History Cardiac Medical History: Reports: Hx Hypertension, Hx Peripheral Vascular Disease Comment Only: Hx Heart Attack - ANGINA Pulmonary Medical History: Reports: Hx Asthma Renal/ Medical History: Denies: Hx Peritoneal Dialysis GI Medical History: Reports: Hx Gastroesophageal Reflux Disease Musculoskeletal Medical History: Reports Hx Arthritis Psychiatric Medical History: Reports: Hx Anxiety, Hx Depression - Immunizations Immunizations up to date: No Hx Diphtheria, Pertussis, Tetanus Vaccination: Yes Hx Pneumococcal Vaccination: 06/11/00 Review of Systems - Review of Systems Notes: Dictated Physical Exam - Vital signs Vitals: Temp Pulse Resp BP Pulse Ox 98.1 F 89 17 158/87 H 99 02/28/18 09:45 02/28/18 09:45 02/28/18 09:45 02/28/18 09:45 02/28/18 09:45 - Notes Notes: Dictated Course - Vital Signs Vital signs: Temp Pulse Resp BP Pulse Ox 98.1 F 89 17 158/87 H 99 02/28/18 09:45 02/28/18 09:45 02/28/18 09:45 02/28/18 09:45 02/28/18 09:45 Discharge - Discharge Clinical Impression: Leg edema Condition: Fair Disposition: HOME, SELF-CARE Instructions: Dependent Edema ([facility]) Prescriptions: Furosemide [Lasix 20 mg Tablet] 20 mg PO QAM #30 tablet Referrals: RADHA LOFTON NP [Primary Care Provider] - Follow up as needed
== END 2018-02-28 10:00 | disposition home or self-care (01) ==
LOC: ER 09:36
DX: Z76.0 Encounter for issue of repeat prescription (principal); R60.9 Edema, unspecified; I10 Essential (primary) hypertension; Z79.899 Other long term (current) drug therapy
CPT/HCPCS: 99283

== ENCOUNTER 2018-03-05 06:54 | Emergency (ER) | payer MEDICAID ==
[2018-03-05 07:00] VITALS: BP 160/84
--- NOTE | 2018-03-05 07:31 | ER Document Report ---
HPI - HPI Pain Level: 3 Notes: Patient is a 52-year-old female who presents with chief complaint of blood pressure check. Patient reports that she usually takes her blood pressure medications in the morning and has not taken them yet. Patient takes Lasix 20 mg every morning. Patient has no other complaints. - REPRODUCTIVE Reproductive: DENIES: : - DERM Skin Color: Normal, [place] Past Medical History - General Information source: Patient - Social History Smoking Status: Never Smoker Family History: Reviewed & Not Pertinent, Arthritis, CAD, CVA, DM, Hyperlipidemia, Hypertension Patient has suicidal ideation: No Patient has homicidal ideation: No - Past Medical History Cardiac Medical History: Reports: Hx Hypertension, Hx Peripheral Vascular Disease Comment Only: Hx Heart Attack - ANGINA Pulmonary Medical History: Reports: Hx Asthma Renal/ Medical History: Denies: Hx Peritoneal Dialysis GI Medical History: Reports: Hx Gastroesophageal Reflux Disease Musculoskeletal Medical History: Reports Hx Arthritis Psychiatric Medical History: Reports: Hx Anxiety, Hx Depression - Immunizations Immunizations up to date: No Hx Diphtheria, Pertussis, Tetanus Vaccination: Yes Hx Pneumococcal Vaccination: 06/11/00 Vertical Provider Document - CONSTITUTIONAL Notes: PHYSICAL EXAMINATION: GENERAL: Well-appearing, well-nourished and in no acute distress. HEAD: Atraumatic, normocephalic. EYES: Pupils equal round and reactive to light, extraocular movements intact, conjunctiva are normal. ENT: Nares patent, oropharynx clear without exudates. Moist mucous membranes. NECK: Normal range of motion, supple without lymphadenopathy LUNGS: Breath sounds clear to auscultation bilaterally and equal. No wheezes rales or rhonchi. HEART: Regular rate and rhythm without murmurs ABDOMEN: Soft, nontender, nondistended abdomen. No guarding, no rebound. No masses appreciated. Female : deferred Musculoskeletal: Normal range of motion, no pitting or edema. No cyanosis. NEUROLOGICAL: Cranial nerves grossly intact. Normal speech, normal gait. Normal sensory, motor exams PSYCH: Normal mood, normal affect. SKIN: Warm, Dry, normal turgor, no rashes or lesions noted. - INFECTION CONTROL TRAVEL OUTSIDE OF THE [place] IN LAST 30 DAYS: No Course - Re-evaluation Re-evalutation: Patient's blood pressure mildly elevated but not dangerous. Patient offered a dose of her blood pressure medicine, patient declined stating that she is going to go eat breakfast and then she will take her blood pressure medication patient is requesting a refill on her Lasix as well as her albuterol for her nebulizer machine. Patient will be discharged in stable condition. - Vital Signs Vital signs: Temp Pulse Resp BP Pulse Ox 98.3 F 88 160/84 H 96 03/05/18 06:58 03/05/18 06:58 03/05/18 06:58 03/05/18 06:58 Discharge - Discharge Clinical Impression: Medication refill Condition: Stable Disposition: HOME, SELF-CARE Additional Instructions: Your blood pressure today was mildly elevated. Please take your regular dose of Lasix 20 mg this morning as per your normal schedule. You are offered a dose here in the emergency department but declined as you stated you want to take it later on with your breakfast. I also gave you a prescription to refill for your albuterol nebulizer machine. Please follow-up with your primary care provider for any other concerns. Prescriptions: Albuterol Sulfate [Albuterol Sulfate 5mg/1 mL] 5 mg NEB Q4 PRN #30 ml PRN Reason: Furosemide [Lasix 20 mg Tablet] 20 mg PO QAM #30 tablet Referrals: RADHA LOFTON, [employer] [Primary Care Provider] - Follow up as needed
== END 2018-03-05 08:04 | disposition home or self-care (01) ==
LOC: ER 06:54
DX: Z76.0 Encounter for issue of repeat prescription (principal); I10 Essential (primary) hypertension; J45.909 Unspecified asthma, uncomplicated
CPT/HCPCS: 99283

== ENCOUNTER 2018-03-07 11:54 | Emergency (ER) | payer MEDICAID ==
[2018-03-07 12:00] VITALS: BP 129/85
--- NOTE | 2018-03-07 12:41 | ER Document Report ---
ED General - General Chief Complaint: Leg Swelling Stated Complaint: BLOODWORK CHECKUP Time Seen by Provider: 03/07/18 12:30 Mode of Arrival: Ambulatory Information source: Patient Notes: Chief complaint: Transport me to [place] History of complain:( obtained from----patient) 52 years old female presents today saying that she needed to be transported to [place] the reason she does not know. She has a history of confusion and schizophrenia. And also would like to check the blood pressure. No discomfort. Onset: As above Duration: Long-standing Severity: Mild to moderate Quality: Unknown Context: Unknown Exacerbating factor and relieving factors: Unknown REVIEW OF SYSTEMS: CONSTITUTIONAL : Denies fever, chills, or sweats. Denies recent illness. EENT: Denies eye, ear, throat, or mouth pain or symptoms. Denies nasal or sinus congestion or discharge. Denies throat, tongue, or mouth swelling or difficulty swallowing. CARDIOVASCULAR: Denies chest pain. Denies palpitations or racing or irregular heart beat. Denies ankle edema. RESPIRATORY: Denies cough, cold, or chest congestion. Denies shortness of breath, difficulty breathing, or wheezing. GASTROINTESTINAL: Denies distention. Denies nausea, vomiting, or diarrhea. Denies blood in vomitus, stools, or per rectum. Denies black, tarry stools. Denies constipation. GENITOURINARY: Denies difficulty urinating, painful urination, burning, frequency, blood in urine, or discharge. FEMALE GENITOURINARY: Denies vaginal bleeding, heavy or abnormal periods, irregular periods. Denies vaginal discharge or odor. MUSCULOSKELETAL: Denies back or neck pain or stiffness. Denies joint pain or swelling. ALL OTHER SYSTEMS REVIEWED AND NEGATIVE. PHYSICAL EXAMINATION: GENERAL: Well-appearing, well-nourished and in no acute distress. HEAD: Atraumatic, normocephalic. EYES: Pupils equal round and reactive to light, extraocular movements intact, conjunctiva are normal. ENT: Nares patent, oropharynx clear without exudates. Moist mucous membranes. NECK: Normal range of motion, supple without lymphadenopathy LUNGS: Breath sounds clear to auscultation bilaterally and equal. No wheezes rales or rhonchi. HEART: Regular rate and rhythm without murmurs ABDOMEN: Soft, nontender, nondistended abdomen. No guarding, no rebound. No masses appreciated. Examination of genitals-deferred Musculoskeletal: Normal range of motion, no pitting or edema. No cyanosis. NEUROLOGICAL: Cranial nerves grossly intact. Normal speech, normal gait. Normal sensory, motor exams PSYCH: Normal mood, normal affect. SKIN: Warm, Dry, normal turgor, no rashes or lesions noted. Dictation was performed using [employer] voice recognition software TRAVEL OUTSIDE OF THE [place] IN LAST 30 DAYS: No - HPI Notes: Dictated - Related Data Allergies/Adverse Reactions: codeine [Codeine] Allergy (Unknown, Verified 02/28/18 09:36) Past Medical History - Social History Smoking Status: Never Smoker Frequency of alcohol use: None Drug Abuse: None Family History: Reviewed & Not Pertinent, Arthritis, CAD, CVA, DM, Hyperlipidemia, Hypertension - Past Medical History Cardiac Medical History: Reports: Hx Hypertension, Hx Peripheral Vascular Disease Comment Only: Hx Heart Attack - ANGINA Pulmonary Medical History: Reports: Hx Asthma Renal/ Medical History: Denies: Hx Peritoneal Dialysis GI Medical History: Reports: Hx Gastroesophageal Reflux Disease Musculoskeletal Medical History: Reports Hx Arthritis Psychiatric Medical History: Reports: Hx Anxiety, Hx Depression - Immunizations Immunizations up to date: No Hx Diphtheria, Pertussis, Tetanus Vaccination: Yes Hx Pneumococcal Vaccination: 06/11/00 Review of Systems - Review of Systems Notes: Dictated Physical Exam - Vital signs Vitals: Temp Pulse Resp BP Pulse Ox 99.2 F 105 H 20 129/85 H 98 03/07/18 11:58 03/07/18 11:58 03/07/18 11:58 03/07/18 11:58 03/07/18 11:58 - Notes Notes: Dictated Course - Re-evaluation Re-evalutation: 03/07/18 12:39 She has been told to ask her family members for transport - Vital Signs Vital signs: Temp Pulse Resp BP Pulse Ox 99.2 F 105 H 20 129/85 H 98 03/07/18 11:58 03/07/18 11:58 03/07/18 11:58 03/07/18 11:58 03/07/18 11:58 Discharge - Discharge Clinical Impression: Schizophrenia Qualifiers: Schizophrenia type: unspecified Qualified Code(s): F20.9 - Schizophrenia, unspecified Condition: Fair Disposition: HOME, SELF-CARE Instructions: Schizophrenia ([facility]) Referrals: RADHA LOFTON NP [Primary Care Provider] - Follow up as needed
== END 2018-03-07 12:45 | disposition home or self-care (01) ==
LOC: ER 11:54
DX: F20.9 Schizophrenia, unspecified (principal); I10 Essential (primary) hypertension; Z88.5 Allergy status to narcotic agent
CPT/HCPCS: 99283

== ENCOUNTER 2018-03-15 12:20 | Emergency (ER) | payer OTHER ==
[2018-03-15 12:41] VITALS: BP 139/73
== END 2018-03-15 12:53 | disposition left against medical advice (07) ==
LOC: ER 12:20
DX: Z53.21 Procedure and treatment not carried out due to patient leaving prior to being seen by health care provider (principal)

== ENCOUNTER 2018-03-19 11:33 | Emergency (ER) | payer MEDICAID, OTHER ==
[2018-03-19 12:03] VITALS: BP 139/74
--- NOTE | 2018-03-19 12:17 | ER Document Report ---
HPI - HPI Pain Level: 2 Notes: Patient is a 52-year-old female who is well-known to the emergency department who presents to the ED for refill of Lasix. She has no other concerns or complaints. Patient states that she is just here for her Lasix prescription, but her ride is here and she needs to leave right away. She is eating and drinking without any difficulties. She is urinating normally and having normal bowel movements. Patient has noticed that her feet have become a little more swollen as she ran out of her Lasix. Patient states that this is not uncommon for her and she has no other pains. Denies any headache, fever, URI, sore throat, chest pain, palpitations, syncope, cough, shortness of breath, wheeze, dyspnea, abdominal pain, nausea/vomiting/diarrhea, urinary retention, dysuria, hematuria, loss of control of bowel or bladder, numbness/tingling, saddle anesthesia, muscle paralysis/weakness, or rash. - ROS Systems Reviewed and Negative: Yes All other systems reviewed and negative - REPRODUCTIVE Reproductive: DENIES: : Past Medical History - Social History Smoking Status: Never Smoker Family History: Reviewed & Not Pertinent, Arthritis, CAD, CVA, DM, Hyperlipidemia, Hypertension - Past Medical History Cardiac Medical History: Reports: Hx Hypertension, Hx Peripheral Vascular Disease Comment Only: Hx Heart Attack - ANGINA Pulmonary Medical History: Reports: Hx Asthma Renal/ Medical History: Denies: Hx Peritoneal Dialysis GI Medical History: Reports: Hx Gastroesophageal Reflux Disease Musculoskeletal Medical History: Reports Hx Arthritis Psychiatric Medical History: Reports: Hx Anxiety, Hx Depression - Immunizations Immunizations up to date: No Hx Diphtheria, Pertussis, Tetanus Vaccination: Yes Hx Pneumococcal Vaccination: 06/11/00 Vertical Provider Document - CONSTITUTIONAL Agree With Documented VS: Yes Notes: PHYSICAL EXAMINATION: GENERAL: Well-appearing, well-nourished and in no acute distress. LUNGS: Breath sounds clear to auscultation bilaterally and equal. No wheezes rales or rhonchi. HEART: Regular rate and rhythm without murmurs, rubs, gallops. Musculoskeletal: FROM to passive/active. Strength 5+/5. No asymmetry to LE's. Elbert neg. Extremities: 1+ pitting edema b/l feet/ankles. Peripheral pulses 2+. Capillary refill less than 3 seconds. NEUROLOGICAL: Normal speech, normal gait. Normal sensory, motor exams PSYCH: Normal mood, normal affect. SKIN: Warm, Dry, normal turgor, no rashes or lesions noted. - INFECTION CONTROL TRAVEL OUTSIDE OF THE [place] IN LAST 30 DAYS: No Course - Re-evaluation Re-evalutation: 03/19/18 12:15 Patient is an afebrile, well-hydrated, 52-year-old female who presents to the ED for Lasix refill. Vitals are acceptable without significant tachycardia, tachypnea, hypoxia. PE is otherwise unremarkable. No labs or imaging warranted at this time. Patient is nontoxic-appearing and is tolerating p.o. without any difficulties. Patient is otherwise asymptomatic. I will send her home with a refill of her Lasix. Recheck with your PCM this week. Return to the ED with any worsening/concerning symptoms otherwise as reviewed in discharge. Patient is in agreement. Patient, however, did not want to stay for her discharge instructions or her prescription as her ride showed up and she needs to leave right now. 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 - Vital Signs Vital signs: Temp Pulse Resp BP Pulse Ox 98.7 F 78 16 139/74 H 99 03/19/18 12:02 03/19/18 12:02 03/19/18 12:02 03/19/18 12:02 03/19/18 12:02 Discharge - Discharge Clinical Impression: Medication refill Condition: Stable Disposition: HOME, SELF-CARE Additional Instructions: Rest, Compression, Elevation Tylenol/ibuprofen as needed Light stretches daily Strength exercises as able Monitor blood pressure daily and keep a log F/u with your PCP in 3-5 days for a recheck Return to the ED with any worsening symptoms and/or development of fever, headache, chest pain, palpitations, syncope, shortness of breath, trouble breathing, abdominal pain, n/v/d, muscle weakness/paralysis, numbness/tingling, swelling, redness, or other worsening symptoms that are concerning to you. Prescriptions: Furosemide [Lasix 20 mg Tablet] 20 mg PO QAM #10 tablet Forms: Elevated Blood Pressure Referrals: RADHA LOFTON, EMISSION TECHNICIAN [Primary Care Provider] - Follow up in 3-5 days
== END 2018-03-19 12:28 | disposition home or self-care (01) ==
LOC: ER 11:33
DX: Z76.0 Encounter for issue of repeat prescription (principal); R60.0 Localized edema; T50.1X6A Underdosing of loop [high-ceiling] diuretics, initial encounter; Z91.128 Patient's intentional underdosing of medication regimen for other reason; Z91.14 Patient's other noncompliance with medication regimen; I10 Essential (primary) hypertension
CPT/HCPCS: 99281